=== PATIENT | female | born 1950 | race Caucasian/White ===

== ENCOUNTER → 2016-09-25 14:01 | Outpatient (CLI) | payer MEDICARE | END | disposition home or self-care (01) | LOC: D.CT 14:01 | DX: I65.23 Occlusion and stenosis of bilateral carotid arteries (principal) ==

== ENCOUNTER 2016-10-16 06:21 | Inpatient (IN) | payer MEDICARE ==
[2016-10-16] VITALS (41 sets, daily range): BP systolic 91–188; BP diastolic 41–75; BMI 37.0
[~2016-10-16] VITALS: Ht 161.3 cm; Wt 109.7 kg
--- NOTE | ~2016-10-16 | EC ---
PATIENT:KELLY DAS DATE OF SERVICE: 10/16/16 SEX: F MEDICAL RECORD: [id number] DATE OF : 50 LOCATION:[place] [address] AGE OF PATIENT: 66 ADMISSION DATE: 10/16/16 REFERRING PHYSICIAN: INTERPRETING PHYSICIAN: DONAVON FORMAN M.D. ECHOCARDIOGRAM REPORT ECHO CHARGES 4 ECHO COMPLETE CLINICAL DIAGNOSIS: HYPOTENSION/ POST CAROTID LEFT ENDARTECTOMY ECHOCARDIOGRAPHIC MEASUREMENTS (adult normal given) AC root (d.<3.7cm) 3.2 LV Septum d (<1.2 cm> 1.5 Valve Excursion 1.8 LV Septum (systole) 1.8 Left Atria (s.<4.0cm> 4.3 LVPW d(<1.2cm) 1.5 RV (d.<2.3cm) 3.3 LVPW (sytole) 1.6 LV diastole(<5.6CM) 5.5 MV E-F(>70mm/sec) LV systole 3.5 LVOT Diameter 1.7 MV exc.(>10mm) 1.0 Est.ejection fraction (50-75%) Pericardial Effusion N DOPPLER: LVIT A 100 E 51.0 LA RVSP 26 LVOT 160 AOP1/2T Asc. Ao 208 RVOT 172 RA PA 234 AV Gradient Peak 17.27 AV Mean 9.41 AV Area 1.6 MV Gradient Peak 5.26 MV Mean 1.88 MV Area COMMENTS: Industrial Education Teacher: Jaquan GUAN Coffee Urn Attendant:2 Dr. Forman TAPE# PACS DATE OF SERVICE: 10/16/2016 REFERRING PHYSICIAN: Sebas Burnett MD. INDICATION: Hypotension. DESCRIPTION: Left ventricle demonstrates left ventricular hypertrophy. No regional wall motion abnormalities are seen. Estimated ejection fraction is 60%. Mitral valve is structurally normal. There is no regurgitation or prolapse seen. Left atrium is mildly dilated. The aortic valve is trileaflet. ECHOCARDIOGRAM REPORT [id number] KELLY DAS There is no stenosis or regurgitation seen. Right ventricle appears mildly dilated. Tricuspid valve is normal. There is mild regurgitation seen. Right ventricular systolic pressure is measured at 26 mmHg. There is no pericardial effusion seen. IMPRESSION: 1. Left ventricular hypertrophy with preserved ejection of 60%. 2. Mild tricuspid regurgitation. TRANSINT:[id number] Voice Confirmation ID: [id number] DOCUMENT ID: [id number] DONAVON FORMAN M.D. CC: [id number] DICTATION DATE: 10/17/16941 CLERK CHECKER: 10/17/16 1440 ADM IN [place] [id number] [place] [address]
[2016-10-16 07:45] LABS: HEMATOCRIT 36.7 % (36.0-48.0); HEMOGLOBIN 12.2 g/dL (12-16); MCH 33.2 pg (26.0-34.0); MCHC 33.2 g/dL (31.0-37.0); MEAN PLATELET VOLUME 9.6 fL (7.4-10.4); RBC 3.67 10x6/uL (4.00-5.40); RDW 12.8 % (11.5-14.5); WBC 6.2 10x3/uL (4.8-10.8)
[2016-10-16 07:49] LABS: APTT 27.1 SECONDS (22.8-39.4); INR 0.96 (0.85-1.17); PROTIME 12.6 SECONDS (11.6-15.0)
[2016-10-16 07:59] LABS: ALBUMIN 3.8 g/dL (3.4-5.0); ANION GAP 15.4 mmol/L (8-16); BILIRUBIN - TOTAL 0.35 mg/dL (0.2-1.3); CALCIUM 9.9 mg/dL (8.5-10.1); CARBON DIOXIDE 25.3 mmol/L (21.0-32.0); CREATININE - SERUM 0.9 mg/dL (0.6-1.3); POTASSIUM - SERUM 4.7 mmol/L (3.5-5.1); PROTEIN - SERUM 7.4 g/dL (6.4-8.2)
[2016-10-16] MEDS ORDERED: LOZOL 2.5 MG T2.5 MG PO (08:11)
[2016-10-16] MEDS ORDERED: NEXIUM40 MG PO (08:12)
[2016-10-16] MEDS ORDERED: CO Q-10100 MG PO (08:12)
[2016-10-16] MEDS ORDERED: HYDROCODONE-APA1 TAB PO (08:13)
[2016-10-16] MEDS ORDERED: ZANTAC150 MG PO (08:13)
[2016-10-16] MEDS ORDERED: LEVOXYL125 MCG PO (08:14)
[2016-10-16] MEDS ORDERED: NEURONTIN 300300 MG PO (08:15)
[2016-10-16] MEDS ORDERED: FIORICET-COD 51 EACH PO (08:15)
[2016-10-16] MEDS ORDERED: DIOVAN160 MG PO (08:16)
[2016-10-16] MEDS ORDERED: LANTUS INSULIN10 ML SC (08:17)
[2016-10-16] MEDS ORDERED: NOVOLOG100 U/M1 SC (08:18)
[2016-10-16] MEDS ORDERED: EFFEXOR37.5 MG PO (08:19)
[2016-10-16] MEDS ORDERED: BYSTOLIC5 MG PO (08:20)
[2016-10-16] MEDS ORDERED: NORVASC5 MG PO (08:20)
[2016-10-16] MEDS ORDERED: ZANAFLEX2 M1 PO (08:21)
[2016-10-16] MEDS ORDERED: ZYLOPRIM100 MG PO (08:21)
[2016-10-16] MEDS ORDERED: PLAVIX75 MG PO (08:22)
[2016-10-16 08:58] LABS: APPEARANCE CLEAR (CLEAR); BILIRUBIN NEGATIVE (NEGATIVE); COLOR YELLOW (YELLOW); GLUCOSE 50 mg/dL (NEGATIVE); KETONE NEGATIVE (NEGATIVE); LEUKOCYTE ESTERASE NEGATIVE (NEGATIVE); NITRITE NEGATIVE (NEGATIVE); PROTEIN NEGATIVE (NEGATIVE); SPECIFIC GRAVITY 1.015 (1.005-1.020); UROBILINOGEN NORMAL (NORMAL)
--- NOTE | 2016-10-16 14:00 | NUR ---
PT ARRIVED TO CV 02 FROM OR AT THIS TIME. PT WEARING NRB @ 15L. PT IS AWAKE AND ALERT. PT HAS INCISION TO LEFT NECK, DRSG CDI. NECK IS SUPPLE. PT HAS SUGAR DRAIN TO LEFT NECK/CHEST WITH BLOODY OUTPUT. YU/TEDS/CRITICORE/SCDS IN PLACE. PT ATTACHED TO MONITOR, VSS. SEE IV FLOW SHEET FOR DETAILS REGARDING DRIPS. SEE SHIFT ASSESSMENT FOR ANY FURTHER DETAILS.
[2016-10-16 14:41] LABS: CKMB 0.8 U/L (0.0-3.6); CREATINE KINASE 59 UL (21-215)
[2016-10-16 14:43] LABS: TROPONIN-I 0.088 ng/mL (0.000-0.060)
--- NOTE | 2016-10-16 16:00 | NUR ---
PT RESTING IN BED. PT TOLERATING ICE CHIPS AND SIPS OF WATER WELL AT THIS TIME. NECK REMAINS CLEAR AND SUPPLE. NEURO INTACTS. CMS INTACT. VSS. WILL CONTINUE TO MONITOR.
--- NOTE | 2016-10-16 18:00 | NUR ---
PT AT BEDSIDE FOR VISITATION. VSS. WILL MONITOR.
--- NOTE | 2016-10-16 19:00 | NUR ---
Received patient resting in bed with eyes open and at bedside, Assessment completed per flowsheet. Patient AO x4, calm and cooperative. Eyes PERRLA @ 4mm with brisk response, sclera is white. L neck incision dressing CDI, no swelling or drainage noted. SUGAR drain mid upper chest, small amount of bloody drainage noted. S1/S2 noted Sinus Tach on telemetry with HR 100, rhythmic and regular. Breathing is slightly shallow on 5L via NC, Lung sounds diminished throughout. Abdomen is obese and soft, bowel sounds hypoactive x4. Criticore rodriguez secured in place, concentrated yellow urine noted in collection. Full ROM all extremities with weakness noted all, all pulses weakly palpable. R radial A-line noted, zeroed with good waveform. Wrist protector in place, extremities warm with good sensation. R subclavian CVL noted, patent with dressing intact. C/O pain in neck 11/18, will provide PRN medication when available. Repositioned for comfort, no further needs at this time, all VSS and will continue to monitor.
--- NOTE | 2016-10-16 19:06 | NUR ---
SPOKE WITH DR KOLB REGARDING BS. UPDATE GIVEN. NEW ORDERS RECD.
[2016-10-16 20:30] LABS: CREATINE KINASE 71 UL (21-215)
[2016-10-16 20:38] LABS: TROPONIN-I 0.324 ng/mL (0.000-0.060)
--- NOTE | 2016-10-16 23:00 | NUR ---
Reassessment completed per flowsheet, patient resting in bed with eyes closed. L neck dressing CDI, no drainage or swelling noted. SUGAR drain compressed with small bloody drainage noted, dressing CDI. S1/S2 noted NSR on telemetry with HR 91, rhythmic and regular. Breathing is slightly shallow and unlabored on 5L via NC, O2 sat 95%. C/O incision site pain intermittent with breakthrough, will provide PRN medication when available. No further needs at this time, all VSS and will continue to monitor.
[2016-10-17] VITALS (57 sets, daily range): BP systolic 87–147; BP diastolic 43–86; Ht 161.3 cm; Wt 109.7 kg
--- NOTE | 2016-10-17 02:00 | NUR ---
Patient C/O pain unrelieved by PRN medication, notified Dr Burnett and new orders received. Will continue to monitor.
--- NOTE | 2016-10-17 03:00 | NUR ---
Reassessment completed per flowsheet, patient resting in bed with eyes closed. L neck dressing CDI with no swelling or bleeding noted. SUGAR drain Mid upper chest dressing CDI with scant bloody drainage noted. S1/S2 noted NSR on telemetry with HR 85, rhythmic and regular. Breathing is shallow and unlabored on 5L via NC, O2 sat 94%. Patient c/o pain at rodriguez site, repositioned with patient stating some relief. No further needs at this time, all VSS and will continue to monitor.
[2016-10-17 03:21] LABS: CKMB 3.2 U/L (0.0-3.6)
[2016-10-17 03:22] LABS: CREATINE KINASE 219 UL (21-215); GLUCOSE 590 mg/dL (74-106); TROPONIN-I 0.338 ng/mL (0.000-0.060)
--- NOTE | 2016-10-17 06:00 | NUR ---
SUGAR drain pulled without difficulty, Dressing CDI with no drainage or bleeding noted.
--- NOTE | 2016-10-17 10:14 | NUR ---
0700- ASSESSMENT COMPLETE PER FLOW SHEET. RESTING IN BED QUIETLY. VSS. DENIES ANY NEEDS. 0835- DR. KOLB AT BEDSIDE, NEW ORDERS REC'D TO WEAN DOPAMINE AND EPI. 0950- C/O BACK PAIN. NOTIFIED HER THAT SHE CAN HAVE PAIN MEDICATION AT 1020.
--- NOTE | 2016-10-17 13:17 | NUR ---
* Is the patient Alert and Oriented? Yes 0 * How many steps to enter\exit or inside your home? 0 0 * PCP Dr. Cisco Daley ([place]) 0 * Pharmacy [facility] in [place] 0 * Preadmission Environment Home with Family 0 * ADLs Independent 0 * List name and contact numbers for known caregivers / representatives who currently or will assist patient after discharge: Spouse - Umesh [phone] 0 * Additional services required to return to the preadmission environment? Yes 0 * Can the patient safely return to the preadmission environment? Yes 0 * Has this patient been hospitalized within the prior 30 days at any hospital? No 0 10/17/2016 13:15 DCP: Discharge Planning Patient Name: KELLY DAS Admission Status: Elective Accout number: [id number] Admission Date: 10-16-2016 : 1950 Admission Diagnosis: Attending: SERA Current LOS: 1 Anticipated DC Date: 10-18-2016 Planned Disposition: Home Primary Insurance: MEDICARE A & B Discharge Planning Comments: CM met with patient to assess dc plans/needs. Patient states she lives a home with her . She reports she is independent with all ADL's & IADL's. She denies having any home health services in the past. At dc, she plans to return home. She states she has good family support & her daughter will be available to assist with any needs. No needs identified or verbalized at this time. CM will follow. Cartography/Mapping Technician: Claudia Cunha
--- NOTE | 2016-10-17 15:07 | NUR ---
* Is the patient Alert and Oriented? Yes 0 * How many steps to enter\exit or inside your home? Ramp 0 * PCP Dr. Uche Cid 0 * Pharmacy [facility] 0 * Preadmission Environment Alf Facility 0 * Facility Name [facility] 0 * ADLs Partial Dependent 0 * Partial ADLs (Assistance needed) Ambulation Bathing Dressing Medication Management Toileting Transfers 0 * Equipment Bedside Commode Cane Elevated Tol[place] Seat Oxygen Rolling Walker Shower Chair 0 * List name and contact numbers for known caregivers / representatives who currently or will assist patient after discharge: Spouse - Belinda [phone] 0 * Additional services required to return to the preadmission environment? Yes 0 * Can the patient safely return to the preadmission environment? Yes 0 * Has this patient been hospitalized within the prior 30 days at any hospital? Yes 10/17/2016 15:08 DCP: Discharge Planning Patient Name: TESS WELLS Admission Status: ER Accout number: [id number] Admission Date: 10-14-2016 : 04-09-1938 Admission Diagnosis:PNEUMONIA, UNSPECIFIED ORGANISM Attending: PERLA Current LOS: 3 Planned Disposition: Alf Facility Primary Insurance: [facility] Discharge Planning Comments: CM met with spouse at bedside. She states patient was living at home with her until about a month ago - she states he has been at [facility] twice in the last 30 days -at discharge both times, he went to [facility] for skilled rehab. She reports he required assistance for all ADL's. She states patient will return to SNF at discharge for further rehab. Answered questions & concerns. CM will follow. Firmware Engineer: Claudia Cunha
--- NOTE | 2016-10-17 15:59 | NUR ---
1130- LUNCH TRAY GIVEN, FEEDING SELF. GTTS WEANED AND TURNED OFF PER ORDERS. SYSTOLIC BP IN THE 110S. 1320- RESTING IN BED WITH EYES CLOSED. PAIN MEDICATION GIVEN PER MAR AND PT REQUEST. 1510- SHEY WITH P.T. AT BEDSIDE, ASSISTED PT TO MOVE FROM BED TO CHAIR. TOLERATED WELL. 1530- RIGHT RADIAL ART LINE AND YU D/C'D PER ORDERS. 1555- DR. KOLB AT BEDSIDE, NO NEW ORDERS REC'D.
--- NOTE | 2016-10-17 19:20 | NUR ---
REC'D TO CARE, BROADCAST MAINTENANCE ENGINEER PER FLOWSHEET. PT UP TO BSC, VOIDED 300ML CLEAR, DARK YELLOW URINE. NICOLA-CARE PER PT. ADULT BRIEF ON PER PT REQUEST FOR STRESS INCONT. PRN NORCO JUST GIVEN BY PREV NURSE. L NECK SITE C/D/I - PT REPORTS PAIN WITH MOVEMENT OF NECK AND COUGHING. LUNGS CTA. CM - NSR. VSS. FRESH WATER AT BS. C/L IN REACH.
--- NOTE | 2016-10-17 20:00 | NUR ---
PT RESTING WITH EYES CLOSED, VSS. NO SIGN OF DISTRESS.
--- NOTE | 2016-10-17 21:21 | NUR ---
PO MEDS GIVEN PER MD ORDER. PT GIVEN SANDWICH TRAY PER REQUEST.
--- NOTE | 2016-10-17 23:11 | NUR ---
PT UP TO BSC, VOIDED 400ML CLEAR, YELLOW URINE. BACK TO BED, REASSESSMENT PER FLOWSHEET. ENCOURAGED DB&C. ALARMS ON . C/L IN REACH.
[2016-10-18] VITALS (25 sets, daily range): BP systolic 98–140; BP diastolic 42–86
--- NOTE | 2016-10-18 01:15 | NUR ---
PT AWAKENS EASILY, NEURO WNL. VSS.
--- NOTE | 2016-10-18 03:32 | NUR ---
REASSESSMENT PER FLOWSHEET, NO ACUTE CHANGES. VSS. PT DENIES NEEDS. C/L IN REACH.
--- NOTE | 2016-10-18 04:52 | NUR ---
RESTING WITH EYES CLOSED, VSS. NO SIGN OF DISTRESS.
--- NOTE | 2016-10-18 05:22 | NUR ---
PT UP TO BSC, VOIDED 550ML. NICOLA-CARE PER PT. BACK TO BED, GIVEN PRN NORCO FOR C/O INCISIONAL NECK PAIN. VSS. C/L IN REACH.
--- NOTE | 2016-10-18 06:32 | NUR ---
UP IN CHAIR. GIVEN COFFEE PER REQUEST. C/L IN REACH.
--- NOTE | 2016-10-18 09:18 | NUR ---
Nutrition follow-up: Diet: ADA consistent CHO with no juice due to elevated glucose. PO intake ~60% of meals labs reviewed FSBS under better control RDN following.
--- NOTE | 2016-10-18 09:46 | NUR ---
0715-RECIEVED PER FLOW SHEET SITTING UP IN [id number]-[id number] OF THOUGHTS IS SLOW-MASSEY EQUAL AND STRONG-FACIAL SYMETRICAL- 0845-DR KOLB AT [facility]-SAME VOCALIZED REGARDING THOUGHT AND SLOWNESS OF VOCALIZATION-AWARE NIBP 104/52 0900-AMBULATED TO BATHROOM-AMBULATED IN UNIT WITH PHYSICAL THERAPY 0930-Roddy VALLE RN/[facility] INFORMED MARY JANE VALERIO-NIBP 104 SYS
--- NOTE | 2016-10-18 14:30 | NUR ---
RECEIVED PT FOR CARE FROM MITZI CHRISTOPHER RN. PT RESTING IN ROOM. CALL LIGHT WITHIN REACH. VSS.
--- NOTE | 2016-10-18 17:38 | NUR ---
PT ASSISTED UP TO CHAIR. CALL LIGHT WITHIN REACH.
--- NOTE | 2016-10-18 19:44 | NUR ---
PT C/O INCISIONAL PAIN TO LT NECK, PRN PO NORCO 10/325 MG ADMINISTERED PER MD ORDER AND PT REQUEST. WILL MONITOR FOR DESIRED EFFECT.
--- NOTE | 2016-10-18 21:34 | NUR ---
PT VISITING WITH FAMILY IN NO APPARENT DISTRESS, DENIES ANY NEEDS, VSS.
--- NOTE | 2016-10-18 23:15 | NUR ---
REASSESSMENT PER FLOWSHEET, NO ACUTE CHANGES NOTED AT THIS TIME. PT DENIES ANY NEEDS, LT NECK/ CHEST DRESSINGS REMAIN CDI, BED LOW, CALL LIGHT IN REACH, CONT TO MONITOR.
[2016-10-19] VITALS (15 sets, daily range): BP systolic 118–153; BP diastolic 42–83
--- NOTE | 2016-10-19 01:15 | NUR ---
PT RESTING IN BED WITH EYES CLOSED, AROUSES EASILY TO VOICE, DENIES ANY NEEDS AT THIS TIME, VSS.
--- NOTE | 2016-10-19 03:08 | NUR ---
PT C/O INCISIONAL PAIN AND A HEADACHE. PRN PO NORCO 10/325 MG ADMINISTERED PER PT REQUEST WITH FRESH ICE WATER, WILL MONITOR.[
--- NOTE | 2016-10-19 05:02 | NUR ---
PILLOW PLACED UNDER LT HIP PER PT REQUEST, COFFEE PROVIDED, CALL LIGHT IN REACH, DENIES ANY OTHER NEEDS AT THIS TIME.
--- NOTE | 2016-10-19 08:28 | NUR ---
WALKING WITH PHYSICAL THERAPY AT THIS TIME. DENIES ANY NEEDS. NO ACUTE DISTRESS NOTED. WILL CONTINUE PLAN OF CARE.
--- NOTE | 2016-10-19 12:10 | NUR ---
UP IN BED EATING LUNCH AT THIS TIME AND SPEAKING WITH DR KOLB. NO ACUTE DISTRESS NOTED. WILL CONTINUE PLAN OF CARE.
--- NOTE | 2016-10-19 13:26 | NUR ---
NOTED ORDER FOR PT TO BE DISCHARGED. WILL DISCHARGE PT SHORTLY PER ORDERS. NO ACUTE DISTRESS NOTED. WILL CONTINUE PLAN OF CARE.
--- NOTE | 2016-10-19 13:32 | OP ---
[facility] MEDICAL RECORD: [id number] :50 LOCATION:D.I D.CV02 ADMISSION DATE:10/16/16 SURGEON: SEBAS KOLB MD DATE OF OPERATION: 10/16/2016 SURGEON: Sebas Kolb MD. ANESTHESIA: General endotracheal, Dr. Flores and Dr. Gaviria. OPERATION PERFORMED: Left carotid endarterectomy with patch angioplasty. PREOPERATIVE DIAGNOSIS: Severe bilateral carotid stenosis. POSTOPERATIVE DIAGNOSIS: Severe bilateral carotid stenosis. INDICATION FOR OPERATION: Symptomatic left carotid stenosis. FINDINGS AT OPERATION: Severe left internal carotid artery stenosis greater than 80% area of stenosis with ulceration, exophytic calcium and old clot. There were no EEG changes with clamping or unclamping of the carotid artery. Post-protamine, the patient had hypotension, bradycardia and elevated pulmonary artery pressures and elevated peak inspiratory pressure. This required resuscitative measures medically without compression. She was transferred to the CV ICU on inotropic vasoactive drugs. ESTIMATED BLOOD LOSS: Less than 100 cc. DESCRIPTION OF PROCEDURE: After informed consent, adequate preoperative medication and evaluation, the patient was brought to the operating room, placed on the table in the supine position. After induction of general endotracheal anesthesia and application of appropriate monitoring devices, left neck and chest were prepped and draped in a sterile field, utilizing Betadine scrub, alcohol, and Betadine solution. A Betadine-impregnated drape was also used. An oblique incision was made in the skin crease. Dissection carried down the fascia. Hemostasis was maintained with electrocautery. Facial vein was identified and divided. Utilizing sharp dissection, the common carotid, internal and external carotid arteries were dissected free from surrounding structures, protecting the neurological structures. The patient was given a calculated dose of heparin. After 3 minutes, clamps were applied. After 2 minutes, no EEG changes. The arteriotomy was made and extended with Corbett scissors. Artery underwent endarterectomy sharply. Artery underwent extensive debridement and irrigation. Utilizing a CorMatrix vascular patch and running 7-0 Prolene suture, the arteriotomy was closed with patch angioplasty technique. All maneuvers to remove trapped air were performed. The clamps were removed sequentially. There were no EEG changes. The patient was then given a calculated dose of protamine to reverse the heparin. With this, she developed bradycardia, hypotension, requiring vigorous medical resuscitative efforts to increase and maintain the blood pressure in the normal range. This was accomplished with vasoactive drugs and bicarbonate after being stable. Hemostasis was assured. A #7 Williams-Harding drain was left in the depth of wound and brought through the base of the neck. Neck was again irrigated. Instrument count and sponge count were correct times 2. Neck was closed in layers utilizing 3-0 Vicryl on the platysma, 5-0 subcuticular Monocryl on the skin. Sterile dressings were applied. The patient tolerated the procedure and was OPERATIVE REPORT [id number] KELLY DAS transferred to cardiovascular recovery in critical, but stable condition. TRANSINT:[id number] Voice Confirmation ID: [id number] DOCUMENT ID: [id number] SEBAS KOLB MD at 1332 CC: [id number] DICTATION DATE: 10/16/16 1342 CARPORT ERECTOR: 10/16/16 2310 ADM IN [facility] [address] [place] [id number]
--- NOTE | 2016-10-19 13:32 | HP ---
PATIENT: KELLY DAS MEDICAL RECORD: [id number] ACCOUNT: [id number] [facility] ADMISSION DATE: 10/16/16 HISTORY AND PHYSICAL EXAMINATION KELLY Francisco (66yo, F) ID# [id number]. Date/Time10/03/2016 01:91AYVMA49/16/1951Service Dept.NP_[facility] ClinicProviderEDTRACEE KOLB MDInsuranceMed Primary: [place] Insurance # : [id number] Referring Provider Name : BRAIN RESENDIZ Employer Name : RETIRED Med Secondary: [place] Insurance # : [id number] Referring Provider Name : BRAIN RESENDIZ Employer Name : RETIRED Prescription: CMX - Member is eligible. Prescription: [place] [employer] - Member is eligible. Chief Complaint Carotid stenosis CTA carotid Patient's Care Team Referring Provider (): BRAIN RESENDIZ: [address] [place] [id number], , Primary Care Provider: DAE GUAJARDO MD: [address] [facility] [place] [address], , Patient's Pharmacies [facility] (ERX): [address] [place] [address], , Vitals BP:140/80 sitting R arm 10/03/2016 01:35 pm 144/82 sitting L arm 10/03/2016 01:35 pmHR:80R/R 10/03/2016 01:35 pmHt:5 ft 3 in 10/03/2016 01:33 pmWt:230 lbs 10/03/2016 01:33 pmBMI:40.7 10/03/2016 01:33 pmAllergies Reviewed Allergies Antivenom for snakebiteMedications Reviewed Medications allopurinol 100 mg mnflxo43/30/17 filledCaremarkamLODIPine 5 mg gaajfv21/13/17 filledCaremarkamoxicillin 875 mg-potassium clavulanate 125 mg koarau14/03/16 filledCaremarkBD Insulin Pen Needle UF Original 29 gauge x 1/2"08/09/16 cnjxrvVhfcnxywlntdgyldxw-vuhuuincrnkke-ninrdvtt 50 mg-300 mg-40 mg yxkontr41/15/17 filledCaremarkBystolic 2.5 mg tablet Take 1 tablet(s) every day by oral route.09/23/16 enteredCindy BrownBystolic 5 mg /13/17 filledCaremarkclopidogrel 75 mg tablet Take 1 tablet(s) every day by oral route.10/03/16 Meena Kolb MDesomeprazole magnesium 40 mg capsule,delayed /09/17 filledCaremarkgabapentin 300 mg pusblzi88/26/17 filledCaremarkHYDROcodone 10 mg-acetaminophen 325 mg udgizr82/13/17 filledCaremarkindapamide 2.5 mg sarlaw07/13/17 filledCaremarkLantus Solostar 100 unit/mL (3 mL) subcutaneous insulin pen08/12/16 filledCaremarklevothyroxine 125 mcg bdafhy79/09/17 filledCaremarklisinopril 10 mg uzdchw74/29/16 filledCaremarkmetFORMIN 500 mg zdcaoa19/09/16 filledCaremarkNovoLOG Flexpen 100 unit/mL ymezqcnxmbha46/31/17 filledCaremarkNovoLOG Mix 70-30 100 unit/mL subcutaneous /03/16 filledCaremarkNovolog Mix 70-30 FlexPen 100 unit/mL subcutaneous pen05/22/16 filledCaremarkpravastatin 20 mg ebolxp32/04/17 filledCaremarkpredniSONE 20 mg eonjsi33/21/16 filledCaremarkraNITIdine 150 mg jnjpeci54/25/17 HISTORY AND PHYSICAL [id number] KELLY DAS filledCaremarkraNITIdine 150 mg wjobzg49/07/17 filledCaremarksucralfate 1 gram /21/16 filledCaremarktiZANidine 2 mg kdyazn96/03/17 filledCaremarkvalsartan 160 mg aojdni74/13/17 filledCaremarkvalsartan 160 mg-hydrochlorothiazide 12.5 mg hdvndo61/22/17 filledCaremarkvalsartan 320 mg-hydrochlorothiazide 25 mg /31/17 filledCaremarkvenlafaxine ER 37.5 mg capsule,extended release 24 hr09/17/16 filledCaremarkProblems Reviewed Problems Carotid artery stenosis - Onset: 09/23/2016 Family History Discussed Family History Father- TuberculosisMother- Amyotrophic lateral sclerosisSocial History Discussed Social History Cardiology and General Smoking Status: Former smoker High Cholesterol: Y High blood pressure: Y Diabetes: Y Surgical History Reviewed Surgical History Other - Abdominalplasty Other - hysterectomy 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 HPI bilateral carotid stenosis Visual disturbances OS ROS Patient reports exercise intolerance but reports no fever, no night sweats, no significant weight gain, and no significant weight loss. She reports vision change (bilateral) but reports no dry eyes and no irritation. She reports shortness of breath when walking and shortness of breath when lying down but reports no chest pain, no arm pain on exertion, no palpitations, and no known heart murmur. She reports shortness of breath but reports no cough, no wheezing, and no coughing up blood. She reports no diff iculty hearing and no ear pain. She reports no frequent nosebleeds and no nose/sinus problems. She reports no sore throat, no bleeding gums, no snoring, no dry mouth, no mouth ulcers, no oral abnormalities, and no teeth problems. She reports no jugular ve i n distension and no swollen glands. She reports no abdominal pain, no vomiting, normal appetite, no diarrhea, not vomiting HISTORY AND PHYSICAL [id number] KELLY DAS blood, no nausea, and no constipation. She reports no incontinence, no difficulty urinating, no hematuria, and no increased frequenc y . She reports no muscle aches, no muscle weakness, no arthralgias/joint pain, no back pain, and no swelling in the extremities. She reports no abnormal mole, no jaundice, and no rashes. She reports no loss of consciousness, no weakness, no numbness, no se i zures, no dizziness, and no headaches. She reports no depression, no sleep disturbances, feeling safe in relationship, and no alcohol abuse. She reports no fatigue. She reports no swollen glands and no bruising. She reports no runny nose, no sinus pressur e, no itching, no hives, and no frequent sneezing. ROS as noted in the HPI Physical Exam Patient is a 66-year-old female. Constitutional: General Appearance healthy-appearing and obese. Level of Distress NAD. Ambulation ambulating normally. Cardiovascular: Apical Impulse not displaced or no thrill. Heart Auscultation normal s1 and s2; no murmurs, rubs, or gallops; and RRR. Arterial Pulses no abdominal aorta bruits, femoral bruits, or popliteal bruits and 2+ bilateral, carotid 2+ bilateral, femoral 2+ bila teral, popliteal 2+ bilateral, and dorsalis pedis 2+ bilateral. Edema no edema or varicosities. Lungs: Repiratory Effort no dyspnea. Percussion no hyperresonance or dullness or flatness. Auscultation no wheezing, rhonchi, or rales / crackles and breathing sounds normal, good air movement, and CTA except as noted. Abdomen: Bowl Sounds normal. Inspection and Palpation no tenderness, guarding, masses, or rebound tenderness and soft and non-distended. Liver non-tender and no hepatomegaly. Spleen non-tender and no splenomegaly. Hernia none palpable. Musculoskeletal System: Gait And Stance normal gait and stance. Digits and Nails normal nails and no cyanosis. Neurologic: Cranial Nerves grossly intact. Reflexes DTRs 2+ bilaterally throughout. Sensation grossly intact. Lymph Nodes: Lymph Nodes no cervical LAD, supraclavicular LAD, axillary LAD, or inguinal LAD. Eyes: Lids and Conjunctivae no discharge or pallor and non-injected. Pupils PERRLA. Cornea grossly intact. EOM EOMI. Lens clear. Sclera non-icteric. Neck: Neck no masses or enlarged lymph nodes and supple, trachea midline, and carotid bruits (left). Thyroid no enlargement or nodules and non-tender. Skin: Inspection and Palpation no rash, lesions, ulcers, jaundice, or abnormal nevi. Assessment / Plan bilateral carotid stenosis left greater than the right 1. Carotid artery stenosis I65.23: Occlusion and stenosis of bilateral carotid arteries CAROTID STENOSIS: CARE INSTRUCTIONS Discussion Notes moderately severe bilateral carotid stenosis left greater than right HISTORY AND PHYSICAL [id number] KELLY DAS She has visual disturbances in left eye and Occasional weakness in her right arm and hand with numbness. I have discussed her disease process with her in detail as well as the alternative methods of treatm ent. We discussed left carotid endarterectomy including the expected benefits and risk which include bleeding, infection, stroke, , and they imponderables. She understands all of the above and wishes to proceed with left carotid endarterectomy We will call to schedule GARRISON KOLB MD at 1332 CC: [id number] DICTATION DATE: 10/03/16 1300 METALLURGICAL ENGINEERING TECHNICIAN: DESIRAE 10/11/16 1410 ADM IN [address] [place] [address]
--- NOTE | 2016-10-19 14:26 | NUR ---
PT DISCHARGED HOME AT THIS TIME VIA PERSONAL VEHICLE WITH . NO ACUTE DISTRESS NOTED. CVL DC PER ORDERS, 3 SUITURES DC FROM SITE AND PRESSURE APPLIED TO SITE FOR 5 MIN AFTER CVL REMOVED, PRESSURE DRESSING APPLIED, NO BLEEDING OR DRAINAGE NOTED. NOTED THERE IS NO CHANGE IN PTS HOME MED LIST. PT IS AWARE THAT DR STEVENS OFFICE WILL CALL PT TO MAKE AN APPOINTMENT NEXT WEEK. PT IS AWARE TO NOT DRIVE. ALSO PT STATED UNDERSTANDING TO NOT USE SOAP, WATER, OR WASHCLOTHS TO INCISION SITE. PT DENIES ANY QUESTIONS OR CONCERNS. NO FURTHER ACTIONS.
== END 2016-10-19 14:39 | disposition home or self-care (01) | DRG 39 ==
LOC: D.CVICU 06:21 → D.SDCHOLD 06:21 → D.CVICU 09:29
PROVIDERS: ADMIT Internal Medicine Cardiovascular Disease
PROC: 03UL0KZ Supplement Left Internal Carotid Artery with Nonautologous Tissue Substitute, Open Approach (ICD-10-PCS; 2016-10-16)
PROC: 03CL0ZZ Extirpation of Matter from Left Internal Carotid Artery, Open Approach (ICD-10-PCS; principal; 2016-10-16 09:00)
DX: I65.23 Occlusion and stenosis of bilateral carotid arteries (principal); I95.9 Hypotension, unspecified; R00.1 Bradycardia, unspecified; E11.9 Type 2 diabetes mellitus without complications; I73.9 Peripheral vascular disease, unspecified; E03.9 Hypothyroidism, unspecified; G89.4 Chronic pain syndrome; Z87.891 Personal history of nicotine dependence

== ENCOUNTER → 2017-02-03 08:56 | Outpatient (CLI) | payer MEDICARE ==
[2016-10-17 10:17] VITALS: BMI 42.4
[~2017-02-03 08:56] MED LIST: BYSTOLIC5 MG PO; CO Q-10100 MG PO; DIOVAN160 MG PO; EFFEXOR37.5 MG PO; FIORICET-COD 51 EACH PO; HYDROCODONE-APA1 TAB PO; LANTUS INSULIN10 ML SC; LEVOXYL125 MCG PO; LOZOL 2.5 MG T2.5 MG PO; NEURONTIN 300300 MG PO; NEXIUM40 MG PO; NORVASC5 MG PO; NOVOLOG100 U/M1 SC; PLAVIX75 MG PO; ZANAFLEX2 M1 PO; ZANTAC150 MG PO; ZYLOPRIM100 MG PO
== END | disposition home or self-care (01) ==
LOC: D.CT 08:56
DX: I65.23 Occlusion and stenosis of bilateral carotid arteries (principal)

== ENCOUNTER 2017-02-19 09:00 | Outpatient (CLI) | payer MEDICARE ==
--- NOTE | ~2017-02-19 | HEMODYNAMI ---
PATIENT:KELLY DAS MEDICAL RECORD: [id number] : 50 [facility] [id number] ADMISSION DATE: 02/19/17 Generatedon:02/19/201714:09 Patient name: KELLY DAS Patient #: [id number] SSN: : 1950 Date of study: 02/19/2017 Page: Of Hemodynamic Procedure Report Patient Data Patient Demographics Procedure consent was obtained First Name: KELLY Gender: Female Last Name: THIAGO : 1950 Middle Initial: JENNIFER Age: 66 year(s) Patient #: [id number] Race: Unknown Additional ID: [id number] Contact details [address]: [address] [place] [address] [place] State: [place] City: [place] Zip code: [address] Admission Admission Data Admission Date: 02/19/2017 Admission Time: 9:49 Room #: [facility] Procedure Procedure Types Cath Procedure Peripheral Cath Diagnostic Procedure Miscellaneous Procedure Description Procedure Date Procedure Date: 02/19/2017 Procedure Start Time: 13:29 Procedure Staff Name Function Jamir Álvarez MD Performing Physician Sallie Overton RT Scrub Mallika Randhawa RN Nurse Tc Brush RT Monitor Procedure Data Cath Procedure Fluoroscopy Diagnostic fluoroscopy Total fluoroscopy Time: 2.4 time: 2.4 min min Diagnostic fluoroscopy Total fluoroscopy dose: 231 dose: 231 mGy mGy Contrast Material Contrast Material Type Amount (ml) Isovue 300 26 Entry Location Entry Primary Successful Side Size Upsize Upsize Entry Closure Succes sful Closure Location (Fr) 1 (Fr) 2 (Fr) Remarks Device Remarks Femoral Right 5 Fr Exoseal artery Diagnostic catheters Device Type Used For End Catheter Placement Cordis Aqua 5Fr Limon Coronary 125cm catheter Angiography Procedure Medications Medication Administration Route Dosage Versed I.V. 1 mg Fentanyl I.V. 50 mcg Hemodynamics Rest Heart Rate: 61 (bpm) Snapshots Pre Cath Intra NCS Post Cath Vital Signs Time Heart Resp SPO2 etCO2 NIBP (mmHg) Rhythm Pain Sedation Rate (ipm) (%) (mmHg) Status Level (bpm) 13:08:31 62 32 100 37.7 169/78(129) NSR 0 (11) 10(A) , No pain 13:13:02 99 28 100 36.9 175/82(152) NSR 0 (11) 10(A) , No pain 13:17:32 60 28 99 40.7 169/75(128) NSR 0 (11) 10(A) , No pain 13:22:00 66 24 100 40.7 179/84(144) NSR 0 (11) 10(A) , No pain 13:26:31 62 20 99 20.3 169/80(134) NSR 0 (11) 10(A) , No pain 13:30:59 72 23 100 36.2 183/88(136) NSR 0 (11) 10(A) , No pain 13:35:37 66 11 99 15 173/81(148) NSR 0 (11) 10(A) , No pain 13:40:10 63 28 100 43.7 178/83(135) NSR 0 (11) 10(A) , No pain 13:44:46 64 21 99 45.2 194/78(129) NSR 0 (11) 10(A) , No pain 13:49:17 61 25 98 35.4 182/87(154) NSR 0 (11) 10(A) , No pain 13:53:49 61 19 98 40.6 177/77(136) NSR 0 (11) 10(A) , No pain 13:58:20 59 17 97 170/84(160) NSR 0 (11) 10(A) , No pain 14:03:19 57 27 97 Measuring NSR 0 (11) 10(A) , No pain 14:04:08 57 15 86 174/78(138) NSR 0 (11) 10(A) , No pain 14:08:38 57 20 97 164/83(136) NSR 0 (11) 10(A) , No pain Medications Time Medication Route Dose Verified Delivered Reason Notes Effectivene ss by by 13:34:33 Versed I.V. 1 mg Jamir Tena for Preeti Randhawa RN sedation 13:34:47 Fentanyl I.V. 50 Jamir Tena [place] [facility] Preeti Randhawa RN sedation Procedure Log Time Note 12:53:31 Tc Ramoslulu RT (R) (CV) sent for patient. Start room use. 12:53:43 Time tracking: Regular hours 12:53:48 Plan of Care:Hemodynamics will remain stable., Cardiac rhythm will remain stable., Comfort level will be maintained., Respiratory function will remain adequate., Patient/ family verbilizes understanding of procedure., Procedure tolerated without complication., Recovers from procedure without complications.. 12:53:54 Patient received from Outpatients to IR Alert and oriented. Tansferred to table in Supine position. 12:53:55 Correct patient and procedure confirmed by team. 12:53:56 Signed procedure consent form obtained from patient. 12:53:57 ECG and BP/O2 sat monitors applied to patient. 12:53:59 Full Disclosure recording started 12:53:59 - 12:54:02 H&P Date Dictated: 02/19/2017 H&P Addendum completed by physician on da y of procedure. (MUST COMPLETE FOR ALL OUTPATIENTS). 12:54:03 Pre-procedure instructions explained to patient. 12:54:03 Pre-op teaching completed and patient verbalized understanding. 12:54:06 Family in waiting room. 12:54:07 Patient NPO since Midnight. 12:54:09 Is the patient allergic to Iodine/contrast media? No. 12:54:58 Is patient on blood thinner?Yes 12:55:02 ACC The patient was administered the following blood thiners within the last 24 hours: ACCPlavix 12:55:06 Patient diabetic? No. 12:55:08 - 1255:09 ----Pre-sedation anethsthesia assessment.---- 12:55:17 Previous problem with sedation/anesthesia? No ? 12:55:19 Snore? Yes 12:55:21 Sleep apnea? No 12:55:22 Deviated septum? No 12:55:23 Opens mouth fully? Yes 12:55:26 Sticks out tongue? Yes 12:55:29 Airway obstruction? No ? 12:55:39 Dentures? Yes upper in\ 12:55:44 Use device set IR Diagnostic 12:55:45 Bag Decanter opened to sterile field. 12:55:46 Acist Manifold opened to sterile field. 12:55:47 Acist Hand Control opened to sterile field. 12:55:47 Sterile Angiographic Pack opened to sterile field. 13:05:19 Acist Syringe opened to sterile field. 13:05:56 Pre procedure: right dorsailis pedis pulse Doppler 13:06:00 Pre procedure: left dorsailis pedis pulse Doppler 13:06:03 Pre procedure: right posterior tibial pulse Doppler 13:06:07 Pre procedure: left posterior tibial pulse Doppler 13:06:20 Patient pain scale 0/10 no pain. 13:06:30 IV patent on arrival in left forearm with 0.9% NaCl at [facility]. 13:06:41 Right groin area was prepped with chlora-prep and draped in sterile fashion 13:06:42 Alarms reviewed by R. N. 13:06:43 Alarms reviewed by R. N. 13:06:44 Sharps counted by scrub and verified by R.N. 13:07:11 Vital chart was started 13:07:12 Baseline sample Acquired. 13:07:22 Zero performed for pressure channel P1 13:25:49 Physician arrived 13:25:49 --------ALL STOP TIME OUT------ 13:25:50 Final Timeout: patient, procedure, and site verified with staff and physician. All members of the team are in agreement. 13:25:53 Right groin site verified by team. 13:26:09 Physical assessment completed. ASA score P 3 - A patient with severe systemic disease as per Jamir Álvarez MD. 13:26:13 Sedation plan: IV Moderate Sedation Versed, Fentanyl 13:29:25 Procedure started. 13:29:29 Local anesthetic to right femoral artery with Lidocaine 1% by Jamir Álvarez MD.INITIAL ACCESS ONLY 13:30:19 A Cordis Aqua 5Fr Limon 125cm catheter was advanced over the wire and used for Coronary Angiography. 13:30:22 Terumo 5Fr Sanborn Sheath opened to sterile field. 13:30:23 TUBING, CONTRAST INJCTN HI PRES opened to sterile field. 13:30:24 Micropuncture VSI 4FR kit opened to sterile field. 13:30:25 Cook BENTSON 145cm guide wire opened to sterile field. 13:30:35 A 5 Fr sheath was inserted into the Right Femoral artery 13:34:33 Versed 1 mg I.V. was administered by Mallika Randhawa RN; for sedation; 13:34:47 Fentanyl 50 mcg I.V. was administered by Mallika Randhawa RN; for sedation ; 13:53:49 Sheath removed intact; hemostasis achieved with Exoseal to the Right Femoral artery. 13:55:08 Cordis 5Fr Exoseal opened to sterile field. 13:55:13 Procedure ended.(Physican Out) 13:55:46 Fluoroscopy time 02.40 minutes. 13:55:50 Fluoroscopy dose: 231 mGy 13:55:50 Flurop Dose total: 231 13:57:33 Contrast amount:Isovue 300 26ml. 13:57:35 Sharps counted by scrub and verified by R.N. 13:57:36 Insertion/operative site no bleeding no hematoma. 13:58:02 Post-op/insertion site Right Femoral artery dressed using a 4 x 4 and Tegaderm. 13:58:04 Post Procedure Pulses reassessed and unchanged 13:58:10 Post-procedure physical assessment completed. ASA score P 3 - A patient with severe systemic disease as per Jamir Álvarez MD. 13:58:12 Post procedure instruction explained to patient.Patient verbalizes understanding. 13:58:13 Procedure and supply charges have been captured, reviewed, submitted an d are correct. 14:08:38 Report given to Outpatients. 14:08:41 Patient transfered to Outpatients with Bed. 14:09:15 Vital chart was stopped Device Usage Item Name Manufacture Quantity Catalog Hospital Part Current [facility] l Lot# / Number Charge Number Stock Stock Serial# Code Bag Decanter Microtek 1 [id number] 22633 525496 5 Medical Inc. Acist Acist 1 47524 330102 859611 086973 5 Manifold [employer] Inc Acist Hand Acist 1 96384 223500 691671 380896 5 Control [employer] Inc Sterile Cardinal 1 [id number] 524246 813240 5 Angiographic Health Pack Acist Syringe Acist 1 70296 754593 387639 085821 20 Medical Systems Inc Cordis Aqua Cardinal 1 [id number] 924338 575269 828971 5 5Fr Limon Health 125cm catheter Terumo 5Fr Terumo 1 [id number] 997615 766452 566508 40 Sanborn Sheath TUBING, Merit 1 [id number] 899657 326996 016472 5 [id number] CONTRAST Medical INJCTN HI PRES Micropuncture VSI VASCULAR 1 [id number] 016938 846264 5 VSI 4FR kit SOLUTIONS [facility] 1 [id number] 889139 030621 5 [id number] 145cm guide wire Cordis 5Fr Cardinal 1 EX500 188072 912765 100337 10 [id number] [facility] Signature Audit [place] Stage Time Signature Unsigned Intra-Procedure 02/19/2017 Tc 2:09:13 PM Trudi RT (R) (CV) Signatures Monitor : Tc Signature : Trudi RT Date : Time : [id number] [place] [address]
[2017-02-19 10:51] LABS: BASOPHILS 0.3 % (0-2); EOSINOPHILS 1.9 % (0-7); HEMATOCRIT 37.2 % (36.0-48.0); HEMOGLOBIN 12.3 g/dL (12-16); IMMATURE GRANULOCYTES 0.3 % (0-5); LYMPHOCYTES 33.8 % (15-50); MCH 32.7 pg (26.0-34.0); MCHC 33.1 g/dL (31.0-37.0); MCV 98.9 fL (80.0-100.0); MEAN PLATELET VOLUME 9.5 fL (7.4-10.4); MONOCYTES 8.4 % (2-11); NEUTROPHILS 55.3 % (40-80); PLATELET COUNT 187 10x3/uL (130-400); RBC 3.76 10x6/uL (4.00-5.40); RDW 12.8 % (11.5-14.5); WBC 5.8 10x3/uL (4.8-10.8)
[2017-02-19 10:55] LABS: APTT 26.2 SECONDS (22.8-39.4); INR 0.96 (0.85-1.17); PROTIME 12.6 SECONDS (11.6-15.0)
[2017-02-19 11:09] LABS: ANION GAP 15.7 mmol/L (8-16); CALCIUM 9.6 mg/dL (8.5-10.1); CARBON DIOXIDE 27.2 mmol/L (21.0-32.0); POTASSIUM - SERUM 4.9 mmol/L (3.5-5.1)
[2017-02-19] MEDS ORDERED: DIOVAN160 MG PO (11:18)
[2017-02-19] MEDS ORDERED: CATAPRES0.1 MG PO (11:26)
[2017-02-19 11:27] VITALS: BP 111/54; BMI 40.9
--- NOTE | 2017-02-19 15:00 | NUR ---
1420-RECD TO ROOM FROM INTERVENTIONAL RADIOLOGY. VITAL SIGNS PER FREQUENT VITAL SIGN SHEET. R GROIN DRESSING DRY AND INTACT. PEDAL PULSE PALPABLE. 1450-COMPLAINS OF BACK PAIN, CHRONIC. NORCO 5MG TWO TABLETS GIVEN. FINGER FOOD TRAY SERVED. REMINDED TO KEEP R GROIN STRAIGHT. BED TILTED. HERE AT BEDSIDE.
--- NOTE | 2017-02-19 18:39 | NUR ---
4770--IV DC'D, PT UP TO DRESS AT THIS TIME. VERITO WILSON 1640--DISCHARGE INSTRUCTIONS GIVEN, PT VERBALIZES UNDERSTANDING. PT OFF UNIT VIA WC. VERITO WILSON
== END 2017-02-19 18:40 | disposition home or self-care (01) ==
LOC: D.OPS 09:00 → D.SDCHOLD 09:49 → EDSTATUS 13:00 → D.OPS 18:40
PROVIDERS: Radiology Diagnostic Radiology
DX: I65.21 Occlusion and stenosis of right carotid artery (principal); I10 Essential (primary) hypertension; E11.9 Type 2 diabetes mellitus without complications; Z01.812 Encounter for preprocedural laboratory examination

== ENCOUNTER → 2017-02-27 14:12 | Outpatient (CLI) | payer MEDICARE ==
[2017-02-19 11:27] VITALS: BMI 40.9
[~2017-02-27 14:12] MED LIST changes: +CATAPRES0.1 MG PO
== END | disposition home or self-care (01) ==
LOC: D.US 14:12
DX: I65.23 Occlusion and stenosis of bilateral carotid arteries (principal)

== ENCOUNTER 2018-01-04 06:04 | Observation (INO) | payer MEDICARE ==
[~2018-01-04] VITALS: Ht 161.3 cm; Wt 106.4 kg
--- NOTE | ~2018-01-04 | EC ---
PATIENT:KELLY DAS DATE OF SERVICE: 01/04/18 SEX: F MEDICAL RECORD: [id number] DATE OF : 50 LOCATION:D.M2 D.212 AGE OF PATIENT: 67 ADMISSION DATE: 01/04/18 REFERRING PHYSICIAN: INTERPRETING PHYSICIAN: FARIBA KILLIAN MD ECHOCARDIOGRAM REPORT ECHO CHARGES 4 ECHO COMPLETE Date: 01/04 CLINICAL DIAGNOSIS: CP BRADYCARDIA ECHOCARDIOGRAPHIC MEASUREMENTS (adult normal given) AC root (d.<3.7cm) 2.2 cm LV Septum d (<1.2 cm> 1.2 cm Valve Excursion 1.1 cm LV Septum (systole) 1.4 cm Left Atria (s.<4.0cm> 4.2 cm LVPW d(<1.2cm) 1.1 cm RV (d.<2.3cm) 3.3 cm LVPW (sytole) 1.1 cm LV diastole(<5.6CM) 5.6 cm MV E-F(>70mm/sec) cm LV systole 4.3 cm LVOT Diameter 1.9 cm MV exc.(>10mm) cm Est.ejection fraction (50-75%) % DOPPLER: LVIT cm/sec A 88 cm/sec E 91 cm/sec LA cm/sec RVSP 30.8 mmHg LVOT 96 cm/sec AOP1/2T m/s Asc. Ao 144 cm/sec RVOT 98 cm/sec RA cm/sec PA 115 cm/sec AV Gradient Peak 8.3 mmHg AV Mean 5.0 mmHg AV Area 2.2 cm MV Gradient Peak 4.5 mmHg MV Mean 1.6 mmHg MV Area cm COMMENTS: Contact Worker: Jessica RICHARDS Project Specialist: 4 Dr. Killian TAPE# PACS Pericardial Effusion N DATE OF SERVICE: PROCEDURE: Transthoracic echocardiogram. FINDINGS: 1. Left ventricle appears to be normal. Ejection fraction of 55% to 60%. 2. Left atrium is possibly mildly dilated, but is not well visualized. 3. The aortic valve appears to be normal. 4. The mitral valve appears to be normal. 5. The tricuspid valve appears to be normal. ECHOCARDIOGRAM REPORT [id number] KELLY DAS 6. The RVSP is normal. 7. The right ventricle is normal. 8. The right atrium is normal. 9. The pulmonic valve is normal. There is no pericardial effusion. CONCLUSIONS: This patient has a normal echocardiogram for patient's stated age. TRANSINT:[id number] Voice Confirmation ID: [id number] DOCUMENT ID: [id number] FARIBA KILLIAN MD at 0749 CC: [id number] DICTATION DATE: 01/04/182251 FIRST PRESS OPERATOR: 01/05/18 0545 DIS IN 01/05/18 [place] [id number] [place] [id number]
[2018-01-04 06:48] LABS: BASOPHILS 0.3 % (0-2); EOSINOPHILS 3.5 % (0-7); HEMATOCRIT 37.9 % (36.0-48.0); HEMOGLOBIN 12.8 g/dL (12-16); IMMATURE GRANULOCYTES 0.2 % (0-5); LYMPHOCYTES 22.5 % (15-50); MCH 32.7 pg (26.0-34.0); MCHC 33.8 g/dL (31.0-37.0); MCV 96.7 fL (80.0-100.0); MEAN PLATELET VOLUME 9.2 fL (7.4-10.4); MONOCYTES 7.8 % (2-11); NEUTROPHILS 65.7 % (40-80); PLATELET COUNT 175 10x3/uL (130-400); RBC 3.92 10x6/uL (4.00-5.40); RDW 13.2 % (11.5-14.5); WBC 6.3 10x3/uL (4.8-10.8)
[2018-01-04 07:14] LABS: INR 1.03 (0.85-1.17); PROTIME 13.1 SECONDS (11.6-15.0)
[2018-01-04 07:15] LABS: APTT 27.1 SECONDS (22.8-39.4)
[2018-01-04 07:16] LABS: D-DIMER-QUANTITATIVE 0.46 ug/mLFEU (0.20-0.54)
[2018-01-04 07:27] LABS: ALBUMIN 3.7 g/dL (3.4-5.0); ALKALINE PHOSPHATASE 85 U/L (46-116); ALT (SGPT) 42 U/L (10-68); BILIRUBIN - TOTAL 0.39 mg/dL (0.2-1.3); CALCIUM 8.5 mg/dL (8.5-10.1); CHLORIDE - SERUM 98 mmol/L (98-107); CREATINE KINASE 49 UL (21-215); CREATININE - SERUM 1.3 mg/dL (0.6-1.3); MAGNESIUM - SERUM 1.5 mg/dL (1.8-2.4); POTASSIUM - SERUM 4.3 mmol/L (3.5-5.1); PROTEIN - SERUM 7.6 g/dL (6.4-8.2); SODIUM 134 mmol/L (136-145); UREA NITROGEN 22 mg/dL (7-18); eGFR NON AFRICAN AMERICAN 43 mL/min (90-120)
[2018-01-04 07:28] LABS: CALC OSMOLALITY 272 mosm/kg (275-300); GLUCOSE 136 mg/dL (74-106); TROPONIN-I < 0.017 ng/mL (0.000-0.060)
[2018-01-04 11:29] VITALS: BP 142/77; Ht 161.3 cm; Wt 106.4 kg
[2018-01-04 12:20] LABS: THYROID STIMULATING HORMONE 6.17 uIU/mL (0.36-3.74)
[2018-01-04 12:58] LABS: CKMB 0.7 U/L (0.0-3.6); CREATINE KINASE 46 UL (21-215); TROPONIN-I < 0.017 ng/mL (0.000-0.060)
[2018-01-04] MEDS ORDERED: BACTRIM DS TABL1 TAB PO (15:19)
[2018-01-04 16:55] VITALS: BP 169/41
[2018-01-04 20:20] VITALS: BP 148/55
[2018-01-05 00:30] VITALS: BP 132/58
[2018-01-05 04:30] VITALS: BP 160/58
[2018-01-05 05:20] LABS: BASOPHILS 0.4 % (0-2); EOSINOPHILS 3.1 % (0-7); HEMATOCRIT 36.2 % (36.0-48.0); HEMOGLOBIN 12.1 g/dL (12-16); IMMATURE GRANULOCYTES 0.2 % (0-5); LYMPHOCYTES 36.2 % (15-50); MCH 32.7 pg (26.0-34.0); MCHC 33.4 g/dL (31.0-37.0); MCV 97.8 fL (80.0-100.0); MEAN PLATELET VOLUME 10.5 fL (7.4-10.4); MONOCYTES 10.4 % (2-11); NEUTROPHILS 49.7 % (40-80); PLATELET COUNT 199 10x3/uL (130-400); RDW 13.2 % (11.5-14.5); WBC 5.2 10x3/uL (4.8-10.8)
[2018-01-05 05:58] LABS: ALBUMIN 3.4 g/dL (3.4-5.0); ANION GAP 10.5 mmol/L (8-16); BILIRUBIN - TOTAL 0.2 mg/dL (0.2-1.3); CALCIUM 8.5 mg/dL (8.5-10.1); CREATININE - SERUM 1.2 mg/dL (0.6-1.3); MAGNESIUM - SERUM 1.6 mg/dL (1.8-2.4); POTASSIUM - SERUM 4.5 mmol/L (3.5-5.1); PROTEIN - SERUM 6.8 g/dL (6.4-8.2)
[2018-01-05 07:47] VITALS: BP 186/57
[2018-01-05 11:18] VITALS: BP 132/73
[2018-01-05 14:57] VITALS: BP 133/51
== END 2018-01-05 16:05 | disposition home or self-care (01) ==
LOC: D.ER 06:04 → D.M2 06:44 → OBSVTIME 06:44 → D.M2 06:44
PROVIDERS: Family Medicine; Internal Medicine Cardiovascular Disease
DX: R00.1 Bradycardia, unspecified (principal); E11.65 Type 2 diabetes mellitus with hyperglycemia; E11.40 Type 2 diabetes mellitus with diabetic neuropathy, unspecified; E03.9 Hypothyroidism, unspecified; I10 Essential (primary) hypertension; G89.29 Other chronic pain; M54.9 Dorsalgia, unspecified; E66.01 Morbid (severe) obesity due to excess calories; Z68.41 Body mass index [BMI] 40.0-44.9, adult; Z87.891 Personal history of nicotine dependence; F32.9 Major depressive disorder, single episode, unspecified; F41.9 Anxiety disorder, unspecified

== ENCOUNTER → 2018-03-17 16:09 | Outpatient (CLI) | payer MEDICARE ==
[2018-01-04 11:29] VITALS: BMI 40.9
[~2018-03-17 16:09] MED LIST changes: +BACTRIM DS TABL1 TAB PO
== END | disposition home or self-care (01) ==
LOC: D.US 03-16 13:00
DX: I65.23 Occlusion and stenosis of bilateral carotid arteries (principal)

== ENCOUNTER 2018-09-04 01:01 | Inpatient (IN) | payer MEDICARE ==
[~2018-09-04] VITALS: Ht 161.3 cm; Wt 109.3 kg
--- NOTE | ~2018-09-04 | HEMODYNAMI ---
PATIENT:KELLY DAS MEDICAL RECORD: [id number] : 50 LOCATION:D.CO D.2237 ADMISSION DATE: 09/04/18 Generatedon:09/16/201816:55 Patient name: KELLY DAS Patient #: [id number] SSN: : 1950 Date of study: 09/16/2018 Page: Of Hemodynamic Procedure Report Patient Data Patient Demographics Procedure consent was obtained First Name: KELLY Gender: Female Last Name: THIAGO : 1950 [facility] Initial: JENNIFER Age: 68 year(s) Patient #: [id number] Race: Unknown Additional ID: [id number] Contact details Address: [address] [place] [address] [place] State: [place] City: [place] Zip code: [address] Admission Admission Data Admission Date: 09/04/2018 Admission Time: 2:44 Admit Source: Other Room #: D.2237 Lab Results Lab Result Date: 09/10/2018 Lab Result Time: 0:00 CBC Name Units Result Min Max Hematocrit % 27 *-(----)-- 42 54 Hemoglobin g/dl 9 *-(----)-- 13.5 17.5 Procedure Procedure Types Cath Procedure Peripheral Cath Diagnostic Procedure Miscellaneous Procedure Description Procedure Date Procedure Date: 09/16/2018 Procedure Start Time: 16:38 Procedure Staff Name Function Jamir Álvarez MD Performing Physician Tc Brush RT Monitor FRANCES COX RT Scrub Mallika Randhawa RN Nurse Procedure Data Cath Procedure Fluoroscopy Diagnostic fluoroscopy Total fluoroscopy Time: 1.5 time: 1.5 min min Diagnostic fluoroscopy Total fluoroscopy dose: 50 dose: 50 mGy mGy Procedure Medications Medication Administration Route Dosage Heparin Flush Bag added to field 2 bags (1000units/500ml NS) Lidocaine 1% added to field 20 Fentanyl I.V. 50 mcg Hemodynamics Rest Heart Rate: 79 (bpm) Snapshots Pre Cath Intra NCS Post Cath Vital Signs Time Heart Resp SPO2 etCO2 NIBP (mmHg) Rhythm Pain Sedation Rate (ipm) (%) (mmHg) Status Level (bpm) 16:31:21 89 14 94 45.4 167/81(117) NSR 0 (11) 10(A) , No pain 16:36:20 82 17 98 44.7 Measuring NSR 0 (11) 10(A) , No pain 16:36:31 84 16 98 35.7 147/73(110) NSR 0 (11) 10(A) , No pain 16:40:47 85 17 98 39.5 153/82(111) NSR 0 (11) 10(A) , No pain 16:45:05 82 18 98 28.3 140/70(95) NSR 0 (11) 10(A) , No pain 16:49:19 79 17 98 39.4 152/79(97) NSR 0 (11) 10(A) , No pain 16:53:55 17 40.2 No Cuff NSR 0 (11) 10(A) , No pain Medications Time Medication Route Dose Verified Delivered Reason Notes Effe ctiveness by by 16:38:20 Heparin Flush added 2 Jamir Bowie used for Bag to bags Preeti Álvarez procedure (1000units/500ml field MD SAM NS) 16:38:31 Lidocaine 1% added 20ml Jamir Bowie for local to vial Preeti Álvarez anesthetic field MD SAM 16:38:46 Fentanyl I.V. 50 Jamir Jacobsenody Per mcg Preeti Randhawa RN physician Procedure Log Time Note 16:20:53 Tc Brush RT (R) (CV) sent for patient. Start room use. 16:21:10 Time tracking: Regular hours (M-F 7:00 - 5:00) 16:21:48 Patient received from Med/Surg to IR Alert and oriented. Tansferred to table in Prone position. 16:21:49 Correct patient and procedure confirmed by team. 16:21:51 Signed procedure consent form obtained from patient. 16:21:52 Full Disclosure recording started 16:21:52 - 16::55 Pre-procedure instructions explained to patient. 16::56 Pre-op teaching completed and patient verbalized understanding. 16:25:17 Is the patient allergic to Iodine/contrast media? No. 16:25:34 Patient diabetic? Yes. 16:25:36 If diabetic: On Metformin? No 16:25:39 Family unavailable. 16:25:43 Patient NPO since Lunch. 16:25:48 ----Pre-sedation anethsthesia assessment.---- 16:25:52 Previous problem with sedation/anesthesia? No ? 16:25:53 Snore? Yes 16:25:54 Sleep apnea? No 16:25:57 Deviated septum? No 16:25:59 Opens mouth fully? Yes 16:26:00 Sticks out tongue? Yes 16:26:05 Airway obstruction? No ? 16:26:13 Dentures? Yes top plate in tight 16:26:22 Patient pain scale 0/10 no pain. 16:26:40 IV patent on arrival in right antecubital with 0.45%NaCl at [facility]. 16:26:42 Sharps counted by scrub and verified by R.N. 16:26:43 Alarms reviewed by R. N. 16:27:00 left Lumbar area was prepped with chlora-prep and draped in sterile fashion 16:30:10 ECG and BP/O2 sat monitors applied to patient. 16:30:10 Vital chart was started 16:30:11 Baseline sample Acquired. 16::27 --------ALL STOP TIME OUT------ 16::28 Final Timeout: patient, procedure, and site verified with staff and physician. All members of the team are in agreement. 16:31:32 Lumbar site verified by team. 16:31:40 Fire Safety Assessment: A--An alcohol-based skin anteseptic being used preoperatively., C--Open oxygen or nitrous oxide is being used. 16:31:47 Maximum allowable Isovue 300 dose 300ml. Physician notified. (300ml for normal creatinines. For patients with creatinine of 1.7 or higher multiply weight(kg) x 5 divided by creatinine.) 16:31:56 Sedation plan: Local Anesthetic Medication:Lidocaine 16:32:46 Procedure started. 16:38:02 Local anesthetic to Lumbar area with Lidocaine 1% by Jamir Álvarez MD.INITIAL ACCESS ONLY 16:38:20 Heparin Flush Bag (1000units/500ml NS) 2 bags added to field was administered by Jamir Álvarez MD; used for procedure; 16:38:21 Abscession 12 FR drainage catheter ([id number]) opened to sterile field. 16:38:21 STOPCOCK 3-Way Large Bore ([id number]) opened to sterile field. 16:38:31 Lidocaine 1% 20ml vial added to field was administered by Jamir arroyo MD; for local anesthetic; 16:38:42 FRANCISCO J .035 15cm wire ([id number]) opened to sterile field. 16:38:46 Fentanyl 50 mcg I.V. was administered by Mallika Randhawa RN; Per physician; 16:39:05 BAG, DRAINAGE EMPTY 600ML W/AIDE ([id number]) opened to sterile field. 16:44:45 SUTURE ETHILON 2-0 BLK MONO FS opened to sterile field. 16:45:20 Procedure ended.(Physican Out) 16:45:44 Fluoroscopy time 01.50 minutes. 16:45:50 Fluoroscopy dose: 50 mGy 16:45:50 Flurop Dose total: 50 16:48:17 Sharps counted by scrub and verified by R.N. 16:48:36 Insertion/operative site no bleeding no hematoma. 16:50:16 Post-op/insertion site Left Lumbar area dressed using a 4 x 4 and Tegaderm. 16:50:33 Post procedure instruction explained to patient.Patient verbalizes understanding. 16:53:32 Procedure and supply charges have been captured, reviewed, submitted an d are correct. 16:53:41 Post Lumbar area:stable 16:53:51 Report given to Med/Surg. 16:53:54 Patient transfered to Med/Surg with Bed. 16:55:06 Vital chart was stopped Device Usage Item Name Manufacture Quantity Catalog Hospital Part Current Minimal Lo t# / Number Charge Number Stock Stock Serial# Code Abscession [employer] 1 [id number] [id number] [id number] 5 12 FR drainage catheter ([id number]) STOPCOCK [facility] 1 [id number] 7771 [id number] 5 95 61999 3-Way Large Bore ([id number]) FRANCISCO J .035 [employer] 1 [id number] [id number] [id number] 5 85 13324 15cm wire ([id number]) BAG, [employer] 1 [id number] [id number] 5 DRAINAGE EMPTY 600ML W/AIDE ([id number]) SUTURE [employer] 1 [id number] [id number] 5 ETHILON 2-0 BLK MONO FS Signature Audit [place] Stage Time Signature Unsigned Intra-Procedure 09/16/2018 Tc 4:55:03 PM Trudi RT (R) (CV) Signatures Monitor : Tc Signature : Trudi RT Date : Time : [place] [address] [place] [address]
--- NOTE | ~2018-09-04 | HEMODYNAMI ---
PATIENT:KELLY DAS MEDICAL RECORD: [id number] : 50 [place]ATION:[place] D.2237 ADMISSION DATE: 09/04/18 Generatedon:09/10/201811:31 Patient name: KELLY DAS Patient #: [id number] SSN: : 1950 Date of study: 09/10/2018 Page: Of Hemodynamic Procedure Report Patient Data Patient Demographics Procedure consent was obtained First Name: KELLY Gender: Female Last Name: THIAGO : 1950 [facility] Initial: JENNIFER Age: 68 year(s) Patient #: [id number] Race: Unknown Additional ID: [id number] Contact details Address: [address] [place] [address] [place] State: [place] City: [place] Zip code: [address] Admission Admission Data Admission Date: 09/04/2018 Admission Time: 2:44 Admit Source: Other Room #: D.2237 Lab Results Lab Result Date: 09/10/2018 Lab Result Time: 0:00 CBC Name Units Result Min Max Hematocrit % 27 *-(----)-- 42 54 Hemoglobin g/dl 9 *-(----)-- 13.5 17.5 Procedure Procedure Types Cath Procedure Diagnostic Procedure VIRGILIO Procedure Description Procedure Date Procedure Date: 09/10/2018 Procedure Start Time: 10:59 Procedure Staff Name Function Jamal Li MD Performing Physician Benny Nunez RT Monitor Diego Aiken RT Therapeutic Sales Specialist Michael Ocasio RT Therapeutic Sales Specialist Allen Crabtree CRNA Additional personnel Gagan Kenny Body Fitter Bernardo Thorne RN Nurse Procedure Data Cath Procedure Fluoroscopy Diagnostic fluoroscopy Total fluoroscopy Time: 0 time: 0 min min Diagnostic fluoroscopy Total fluoroscopy dose: 0 dose: 0 mGy mGy Contrast Material Contrast Material Type Amount (ml) Isovue 300 0 Estimated blood loss: 0 ml Procedure Complications No complications Procedure Medications Medication Administration Route Dosage 0.9% NaCl I.V. 100 ml/hr Oxygen etCO2 Nasal cannula 4 l/min Hurricaine [place] P.O. 1 Sprays Refer to Anesthesia Notes for Sedation Medications Hemodynamics Rest HGB: 9 (g/dl) Heart Rate: 94 (bpm) Snapshots Pre Cath Intra NCS Post Cath Vital Signs Time Heart Resp SPO2 etCO2 NIBP (mmHg) Rhythm Pain Sedation Rate (ipm) (%) (mmHg) Status Level (bpm) 11:12:03 96 22 98 19.4 190/88(133) NSR 0 (11) 10(A) , No pain 11:16:48 89 14 98 28.4 179/87(116) NSR 0 (11) 10(A) , No pain 11:21:08 72 17 99 19.4 133/55(96) NSR 0 (11) 10(A) , No pain 11:26:07 82 22 98 32.9 131/50(82) NSR 0 (11) 10(A) , No pain 11:30:07 0 No Cuff NSR 0 (11) 10(A) , No pain Medications Time Medication Route Dose Verified Delivered Reason Notes Effecti veness by by 11:10:30 0.9% NaCl I.V. 100 Bernardo Bernardo Per ml/hr Mati Thorne physician RN RN 11:10:47 Oxygen etCO2 4 Bernardo Bernardo for low 02 Nasal l/min Mati Thorne sats cannula RN RN 11:11:05 Hurricaine P.O. 1 Bernardo Bernardo for local Reliance Sprays Mati Thorne anesthetic RN RN 11:18:08 Refer to Allen Villa for Anesthesia Leyda Crabtree sedation Notes for FARZANEH SEAMAN Sedation Medications Procedure Log Time Note 10:55:42 Diego Aiken RT(R) sent for patient. Start room use. 10:59:59 Informed consent obtained and on chart 11:00:44 Gagan Kenny Collar Setter Overlock present for VIRGILIO. 11:05:14 Allen Crabtree CRNA present and monitoring patient for TIVA. 11:06:01 Admit Source: Other 11:06:40 Diagnostic Cath status Elective 11:06:51 Time tracking: Regular hours (M-F 7:00 - 5:00) 11:06:55 Plan of Care:Hemodynamics will remain stable., Cardiac rhythm will remain stable., Comfort level will be maintained., Respiratory function will remain adequate., Patient/ family verbilizes understanding of procedure., Procedure tolerated without complication., Recovers from procedure without complications.. 11:06:59 Patient received from Med/Surg to CCL 1 Alert and oriented. Tansferred to table in Supine position. 11:07:00 Warm blankets applied, and london hugger turned on for patient comfort. 11:07:00 Correct patient and procedure confirmed by team. 11:07:02 ECG and BP/O2 sat monitors applied to patient. 11:08:44 H&P Date Dictated: 09/09/2018 Within 30 days and on chart.. 11:10:30 0.9% NaCl 100 ml/hr I.V. was administered by Bernardo Thorne RN; Per physician; 11:10:37 Vital chart was started 11:10:40 Baseline sample Acquired. 11:10:43 Rhythm: sinus rhythm 11:10:44 Full Disclosure recording started 11:10:45 Pre-procedure instructions explained to patient. 11:10:45 Pre-op teaching completed and patient verbalized understanding. 11:10:47 Oxygen 4 l/min etCO2 Nasal cannula was administered by Bernardo Thorne RN; for low 02 sats; 11:10:59 Family unavailable. 11:11:01 Patient NPO since Midnight. 11:11:05 Hurricaine [place] 1 Sprays P.O. was administered by Bernardo Thorne RN; for local anesthetic; 11:11:30 Is the patient allergic to Iodine/contrast media? No. 11:11:31 Patient diabetic? No. 11:11:33 Previous problem with sedation/anesthesia? No ? 11:11:35 Snore? Yes 11:11:36 Sleep apnea? No 11:11:38 Deviated septum? No 11:11:39 Opens mouth fully? Yes 11:11:40 Sticks out tongue? Yes 11:11:43 Airway obstruction? Yes COPD 11:11:46 Dentures? Yes OUT 11:11:57 IV patent on arrival in left hand with 0.9% NaCl at [facility]. 11:12:07 Lab Result : Hemoglobin 9 g/dl 11:12:07 Lab Result : Hematocrit 27 % 11:12:09 Lab results completed and on chart. 11::59 Physician arrived 11::59 --------ALL STOP TIME OUT------ :59 Final Timeout: patient, procedure, and site verified with staff and physician. All members of the team are in agreement. 11:13:05 Fire Safety Assessment: C--Open oxygen or nitrous oxide is being used. 11:13:07 Physical assessment completed. ASA score P 3 - A patient with severe systemic disease as per Jamal Li MD. 11:13:10 Sedation plan: TIVA Medication:Propofol 11:17:46 VIRGILIO started. 11:18:08 Refer to Anesthesia Notes for Sedation Medications was administered by Allen Crabtree CRNA; for sedation; 11:21:52 VIRGILIO completed. 11:21:57 Procedure ended.(Physican Out) 11:25:54 Fluoroscopy time 00.00 minutes. 11:25:55 Fluoroscopy dose: 0 mGy 11:25:55 Flurop Dose total: 0 11:25:58 Contrast amount:Isovue 300 0ml. 11:26:09 Post-procedure physical assessment completed. ASA score P 3 - A patient with severe systemic disease as per Jamal Li MD. 11:26:11 Post procedure rhythm: unchanged. 11:26:15 Estimated blood loss: 0 ml 11:26:19 Post procedure instruction explained to patient.Patient verbalizes understanding. 11:29:28 Patient needs reinforcement of post procedure teaching. 11:30:24 Procedure and supply charges have been captured, reviewed, submitted and are correct. 11:30:26 Procedure Complication : No complications 11:30:28 Vital chart was stopped 11:30:29 See physician's report for complete and final results. 11:30:31 Report given to [facility]. 11:30:33 Patient transfered to [facility] with Stretcher. 11:30:46 End room use (Document Last) Signature Audit [place] Time Signature Unsigned Intra-Procedure 09/10/2018 Benny Nunez 11:31:06 AM RT(R) Signatures Monitor : Benny Nunez RT Signature : Date : Time : [facility] [address] [facility] [place] [address]
[2018-09-04 01:55] LABS: BASOPHILS 0.2 % (0-2); EOSINOPHILS 1.8 % (0-7); HEMATOCRIT 29.5 % (36.0-48.0); HEMOGLOBIN 9.5 g/dL (12-16); IMMATURE GRANULOCYTES 0.4 % (0-5); LYMPHOCYTES 20.3 % (15-50); MCH 32.3 pg (26.0-34.0); MCHC 32.2 g/dL (31.0-37.0); MCV 100.3 fL (80.0-100.0); MEAN PLATELET VOLUME 9.6 fL (7.4-10.4); MONOCYTES 9.5 % (2-11); NEUTROPHILS 67.8 % (40-80); PLATELET COUNT 227 10x3/uL (130-400); RBC 2.94 10x6/uL (4.00-5.40); RDW 14.3 % (11.5-14.5); WBC 9.3 10x3/uL (4.8-10.8)
[2018-09-04 02:03] LABS: APPEARANCE CLEAR (CLEAR); BILIRUBIN NEGATIVE (NEGATIVE); COLOR YELLOW (YELLOW); GLUCOSE NEGATIVE (NEGATIVE); KETONE NEGATIVE (NEGATIVE); NITRITE NEGATIVE (NEGATIVE); PROTEIN NEGATIVE (NEGATIVE); SPECIFIC GRAVITY 1.015 (1.005-1.020); UROBILINOGEN NORMAL (NORMAL)
[2018-09-04 02:29] LABS: CALCIUM 9.9 mg/dL (8.5-10.1); CARBON DIOXIDE 24.3 mmol/L (21.0-32.0); CHLORIDE - SERUM 104 mmol/L (98-107); CREATINE KINASE 756 UL (21-215); CREATININE - SERUM 1.5 mg/dL (0.6-1.3); POTASSIUM - SERUM 5.2 mmol/L (3.5-5.1); TROPONIN-I 0.059 ng/mL (0.000-0.060); UREA NITROGEN 40 mg/dL (7-18); eGFR NON AFRICAN AMERICAN 37 mL/min (90-120)
[2018-09-04 02:30] VITALS: BP 136/60
[2018-09-04 02:34] LABS: GLUCOSE 169 mg/dL (74-106)
[2018-09-04 02:35] LABS: CKMB 4.2 U/L (0.0-3.6)
[2018-09-04 02:39] LABS: CALC OSMOLALITY 285 mosm/kg (275-300); SODIUM 136 mmol/L (136-145)
[2018-09-04] MEDS ORDERED: BASAGLAR K100 UNIT/1 SC (05:20)
[2018-09-04] MEDS ORDERED: NOVOLOG100 UNIT/1 SC (05:22)
[2018-09-04 05:24] VITALS: BP 150/75; BMI 42.1
[2018-09-04 14:08] VITALS: BP 136/84
[2018-09-04 14:11] VITALS: BMI 42.0
[2018-09-04 14:40] LABS: % SATURATION 12 % (15-55); IRON 24 ug/dl (35-150); TOTAL IRON BIND CAPACITY 188 ug/dl (260-445); UNSAT IRON BIND CAPACITY 164 ug/dl (150-375)
[2018-09-04 17:26] VITALS: BP 128/69
[2018-09-04 20:00] VITALS: BP 134/71
[2018-09-05] VITALS: BP 161/71
[2018-09-05 04:00] VITALS: BP 137/54
[2018-09-05 05:47] LABS: BASOPHILS 0.3 % (0-2); EOSINOPHILS 2.5 % (0-7); HEMATOCRIT 26.1 % (36.0-48.0); HEMOGLOBIN 8.4 g/dL (12-16); IMMATURE GRANULOCYTES 0.4 % (0-5); LYMPHOCYTES 20.8 % (15-50); MCH 31.9 pg (26.0-34.0); MCHC 32.2 g/dL (31.0-37.0); MCV 99.2 fL (80.0-100.0); MEAN PLATELET VOLUME 9.1 fL (7.4-10.4); MONOCYTES 9.3 % (2-11); NEUTROPHILS 66.7 % (40-80); PLATELET COUNT 245 10x3/uL (130-400); RBC 2.63 10x6/uL (4.00-5.40); RDW 14.2 % (11.5-14.5)
[2018-09-05 05:55] LABS: WBC 6.9 10x3/uL (4.8-10.8)
[2018-09-05 06:24] LABS: ANION GAP 12.6 mmol/L (8-16); CALCIUM 9.4 mg/dL (8.5-10.1); CARBON DIOXIDE 26.9 mmol/L (21.0-32.0); POTASSIUM - SERUM 4.5 mmol/L (3.5-5.1)
[2018-09-05 08:45] VITALS: BP 136/63
[2018-09-05 12:58] VITALS: BP 106/72; BP 137/65
[2018-09-05 17:42] VITALS: BP 172/77
[2018-09-05 19:53] VITALS: BP 142/60
[2018-09-06] VITALS: BP 171/71
[2018-09-06 04:00] VITALS: BP 142/69
[2018-09-06 08:13] VITALS: BP 136/63
[2018-09-06 13:44] VITALS: BP 159/73
[2018-09-06 17:47] VITALS: BP 131/70
[2018-09-06 20:00] VITALS: BP 131/60
[2018-09-07] VITALS: BP 129/57
[2018-09-07 03:00] VITALS: BP 134/45
[2018-09-07 06:30] LABS: BASOPHILS 0.4 % (0-2); EOSINOPHILS 3.9 % (0-7); HEMOGLOBIN 9.1 g/dL (12-16); IMMATURE GRANULOCYTES 1.4 % (0-5); LYMPHOCYTES 28.5 % (15-50); MCH 32.2 pg (26.0-34.0); MCHC 32.5 g/dL (31.0-37.0); MCV 98.9 fL (80.0-100.0); MEAN PLATELET VOLUME 9.2 fL (7.4-10.4); MONOCYTES 10.2 % (2-11); NEUTROPHILS 55.6 % (40-80); RBC 2.83 10x6/uL (4.00-5.40); RDW 13.7 % (11.5-14.5); WBC 5.6 10x3/uL (4.8-10.8)
[2018-09-07 06:31] LABS: PLATELET COUNT 372 10x3/uL (130-400)
[2018-09-07 06:52] LABS: CALC OSMOLALITY 281 mosm/kg (275-300); CALCIUM 9.1 mg/dL (8.5-10.1); CARBON DIOXIDE 25.7 mmol/L (21.0-32.0); CHLORIDE - SERUM 103 mmol/L (98-107); CREATININE - SERUM 0.7 mg/dL (0.6-1.3); GLUCOSE 125 mg/dL (74-106); MAGNESIUM - SERUM 1.3 mg/dL (1.8-2.4); POTASSIUM - SERUM 4.2 mmol/L (3.5-5.1); SODIUM 141 mmol/L (136-145); UREA NITROGEN 12 mg/dL (7-18); eGFR NON AFRICAN AMERICAN 88 mL/min (90-120)
[2018-09-07 08:15] VITALS: BP 107/37
[2018-09-07 20:00] VITALS: BP 154/64
[2018-09-08] VITALS: BP 162/67
[2018-09-08 05:30] VITALS: BP 157/68
[2018-09-08 06:32] LABS: BASOPHILS 0.2 % (0-2); EOSINOPHILS 2.7 % (0-7); HEMATOCRIT 29.8 % (36.0-48.0); HEMOGLOBIN 9.8 g/dL (12-16); IMMATURE GRANULOCYTES 1.4 % (0-5); LYMPHOCYTES 28.4 % (15-50); MCH 32.2 pg (26.0-34.0); MCHC 32.9 g/dL (31.0-37.0); MEAN PLATELET VOLUME 9.4 fL (7.4-10.4); MONOCYTES 9.7 % (2-11); NEUTROPHILS 57.6 % (40-80); RBC 3.04 10x6/uL (4.00-5.40); RDW 13.6 % (11.5-14.5); WBC 5.9 10x3/uL (4.8-10.8)
[2018-09-08 06:41] LABS: PLATELET COUNT 228 10x3/uL (130-400)
[2018-09-08 07:40] LABS: CALC OSMOLALITY 283 mosm/kg (275-300); CALCIUM 9.2 mg/dL (8.5-10.1); CHLORIDE - SERUM 105 mmol/L (98-107); CREATININE - SERUM 0.8 mg/dL (0.6-1.3); GLUCOSE 124 mg/dL (74-106); MAGNESIUM - SERUM 1.2 mg/dL (1.8-2.4); POTASSIUM - SERUM 4.4 mmol/L (3.5-5.1); SODIUM 142 mmol/L (136-145); UREA NITROGEN 12 mg/dL (7-18); eGFR NON AFRICAN AMERICAN 75 mL/min (90-120)
[2018-09-08 09:58] VITALS: BP 124/52
[2018-09-08 11:53] VITALS: BP 138/68
--- NOTE | 2018-09-08 14:58 | MORECARE ---
CASE MANAGEMENT DISCHARGE SUMMARY PATIENT: KELLY DAS UNIT: [id number] ADM DATE: 09/04/18 AGE: 68 : 50 SEX: F ROOM/BED: D.2237 AUTHOR: TAMMY DAVIES PHYSICIAN: REFERRING PHYSICIAN: VINICIUS INFANTE MD DATE OF SERVICE: 09/08/18 Discharge Plan Patient Name: KELLY DAS Facility: [facility]:[place] : 1950 Planned Disposition: Home with Home Health Anticipated Discharge Date: Discharge Date: Expected LOS: Initial Reviewer: [email or web address] Initial Review Date: 09/04/2018 Generated: 09/08/18 3:58 pm Patient Name: KELLY DAS Page [id number] at 6688 All edits/amendments must be made on the electronic document DICTATION DATE: 09/08/181456 [facility] DIRECTOR: DESIRAE 09/08/181456 RPT#: [id number] DC DATE: STATUS: ADM IN [facility] [address] [place] [address] END OF REPORT
--- NOTE | 2018-09-08 15:09 | MORECARE ---
CASE MANAGEMENT DISCHARGE SUMMARY PATIENT: KELLY LUJAN UNIT: [id number] ADM DATE: 09/04/18 AGE: 68 : 50 SEX: F ROOM/BED: D.2237 AUTHOR: KEKEDOC PHYSICIAN: REFERRING PHYSICIAN: VINICIUS INFANTE MD DATE OF SERVICE: 09/08/18 Discharge Plan Patient Name: KELLY LUJAN Facility: [facility]:[place] : 1950 Planned Disposition: Home with Home Health Anticipated Discharge Date: Discharge Date: Expected LOS: Initial Reviewer: [email or web address] Initial Review Date: 09/04/2018 Generated: 09/08/18 4:09 pm Comments DCP- Discharge Planning Updated by [email or web address]: Rossy Jimenez on 09/08/18 2:[address] Patient Name: KELLY LUJAN Admission Status: ER Accout number: [id number] Admission Date: 09-04-2018 : 1950 Admission Diagnosis:SEPSIS, UNSPECIFIED ORGANISM Attending: VINICIUS INFANTE Current LOS: 4 Anticipated DC Date: Planned Disposition: Home with Home Health Primary Insurance: MEDICARE A & B Discharge Planning Comments: CM met with patient to discuss discharge planning, she is alone in the room. She states that she lives with her , but her is in [facility] in [place]. She states that her son and daughter in law and grand daughter have been staying with her prior to her going back to the [facility]. She states that she has had [facility] and would like it resumed on discharge. I did discuss the availability of rehab, prison facilities and additional DME. She denies other needs besides the home health. She states she does have oxygen and portable oxygen that [facility] set up prior to her last discharge. She believes it came from DME supply in [place]. I called [facility] and they will resume on discharge. CM will continue to follow and assist with discharge planning/needs. Punch Finisher: Rossy Jimenez DCPIA - Discharge Planning Initial Assessment Updated by [email or web address]: Rossy Jimenez on 09/08/18 2:59 pm * Is the patient Alert and Oriented? Yes * How many steps to enter\exit or inside your home? 0/0 * PCP Dr. Daley in [place] * Pharmacy [facility] in [place] * Preadmission Environment Home with Family * ADLs Independent * Equipment Other Oxygen Walker * Other Equipment Portable oxygen * List name and contact numbers for known caregivers / representatives who currently or will assist patient after discharge: Linden Lujan - [phone] * Verbal permission to speak to the caregivers and representatives has been obtained from the patient. Yes * Community resources currently utilized Home Health * Please name any agencies selected above. [facility] [place] * Additional services required to return to the preadmission environment? No * Can the patient safely return to the preadmission environment? Yes * Has this patient been hospitalized within the prior 30 days at any hospital? Yes Coverage Notice Reviewer: [email or web address] Simran Jimenez Notice Issued Date-Time: 09/08/2018 15:04 Notice Type: Patient Choice Letter Notice Delivered To: Patient Relationship to Patient: Moss Picker Name: Delivery Method: HAND - Hand Delivered Renetta Days: Prior Verbal Notification: Recipient Understood Notice: Yes Recipient Signature: Yes Med Rec Note Co-signed by Attending: Coverage Notice Comment: ARIANNE for [facility] [place] Last DP export: 09/08/18 1:58 p Patient Name: KELLY LUJAN Page 82793 at 1509 All edits/amendments must be made on the electronic document DICTATION DATE: 09/08/18 1509 ROD FINISHER: DESIRAE 09/08/18 1509 RPT#: [id number] DC DATE: STATUS: ADM IN [facility] [address] [place] [address] END OF REPORT
[2018-09-08 16:57] VITALS: BP 156/73
[2018-09-08 21:22] VITALS: BP 173/63
[2018-09-09 00:19] VITALS: BP 168/74
[2018-09-09 05:05] VITALS: BP 123/63
[2018-09-09 06:13] LABS: BASOPHILS 0.2 % (0-2); EOSINOPHILS 3.5 % (0-7); HEMATOCRIT 29.4 % (36.0-48.0); HEMOGLOBIN 9.7 g/dL (12-16); IMMATURE GRANULOCYTES 1.3 % (0-5); LYMPHOCYTES 28.5 % (15-50); MCH 32.2 pg (26.0-34.0); MCV 97.7 fL (80.0-100.0); MEAN PLATELET VOLUME 8.9 fL (7.4-10.4); MONOCYTES 9.8 % (2-11); NEUTROPHILS 56.7 % (40-80); RBC 3.01 10x6/uL (4.00-5.40); RDW 13.8 % (11.5-14.5); WBC 5.9 10x3/uL (4.8-10.8)
[2018-09-09 06:31] LABS: CALC OSMOLALITY 285 mosm/kg (275-300); CALCIUM 9.7 mg/dL (8.5-10.1); CARBON DIOXIDE 31.9 mmol/L (21.0-32.0); CHLORIDE - SERUM 105 mmol/L (98-107); CREATININE - SERUM 0.6 mg/dL (0.6-1.3); GLUCOSE 118 mg/dL (74-106); MAGNESIUM - SERUM 1.3 mg/dL (1.8-2.4); POTASSIUM - SERUM 3.8 mmol/L (3.5-5.1); SODIUM 143 mmol/L (136-145); UREA NITROGEN 13 mg/dL (7-18); eGFR NON AFRICAN AMERICAN > 90 mL/min (90-120)
[2018-09-09 06:34] LABS: PLATELET COUNT 426 10x3/uL (130-400)
[2018-09-09 10:16] VITALS: BP 148/68
--- NOTE | 2018-09-09 10:39 | EC ---
PATIENT:KELLY DAS DATE OF SERVICE: 09/04/18 SEX: F MEDICAL RECORD: [id number] DATE OF : [birth year] LOCATION:D.MS [place] AGE OF PATIENT: 68 ADMISSION DATE: 09/04/18 REFERRING PHYSICIAN: INTERPRETING PHYSICIAN: NAE LI MD ECHOCARDIOGRAM REPORT ECHO CHARGES 4 ECHO COMPLETE Date: 09/04/18 CLINICAL DIAGNOSIS: ENDOCARDITIS ECHOCARDIOGRAPHIC MEASUREMENTS (adult normal given) AC root (d.<3.7cm) 2.6 cm LV Septum d (<1.2 cm> 0.7 cm Valve Excursion 1.4 cm LV Septum (systole) 1.5 cm Left Atria (s.<4.0cm> 4.6 cm LVPW d(<1.2cm) 0.9 cm RV (d.<2.3cm) 3.6 cm LVPW (sytole) 1.5 cm LV diastole(<5.6CM) 5.4 cm MV E-F(>70mm/sec) cm LV systole 4.4 cm LVOT Diameter 1.9 cm MV exc.(>10mm) cm Est.ejection fraction (50-75%) % DOPPLER: LVIT cm/sec A 101 cm/sec E 120 cm/sec LA cm/sec RVSP 37.5 mmHg LVOT 84 cm/sec AOP1/2T m/s Asc. Ao 132 cm/sec RVOT 100 cm/sec RA cm/sec PA 120 cm/sec AV Gradient Peak 7.0 mmHg AV Mean 4.4 mmHg AV Area 1.8 cm MV Gradient Peak 7.1 mmHg MV Mean 3.4 mmHg MV Area cm COMMENTS: Mechanical Cad Drafter: Jessica RICHARDS Broommaker: 1 Dr. Li TAPE# PACS Pericardial Effusion N DATE OF SERVICE: FINDINGS: 1. Left ventricular chamber size is within normal limits. Left ventricular systolic function is normal. Overall ejection fraction estimated at 50%. 2. Left atrium, right atrium, right ventricle chamber size is within normal limits. 3. Valvular structures have normal structure and motion. 4. Doppler interrogation reveals trace mitral regurgitation, trace tricuspid regurgitation, no other valvular insufficiency or stenosis. ECHOCARDIOGRAM REPORT [id number] KELLY DAS 5. No evidence of pericardial effusion or left ventricular thrombus. TRANSINT:[id number] Voice Confirmation ID: [id number] DOCUMENT ID: [id number] NAE LI MD at 1039 CC: [id number] DICTATION DATE: 09/04/18 121 SERVICE PERSON: 09/04/18 1226 ADM IN [place] [id number] [place] [id number]
[2018-09-09 12:48] VITALS: BP 160/58
[2018-09-09 15:46] VITALS: BP 138/84
[2018-09-09 15:58] VITALS: Ht 161.3 cm; Wt 109.3 kg
[2018-09-09 22:12] VITALS: BP 134/66
[2018-09-10 00:45] VITALS: BP 138/54
[2018-09-10 05:12] VITALS: BP 129/60
[2018-09-10 05:32] LABS: BASOPHILS 0.4 % (0-2); EOSINOPHILS 3.5 % (0-7); HEMATOCRIT 27.6 % (36.0-48.0); IMMATURE GRANULOCYTES 1.3 % (0-5); LYMPHOCYTES 33.5 % (15-50); MCH 31.8 pg (26.0-34.0); MCHC 32.6 g/dL (31.0-37.0); MCV 97.5 fL (80.0-100.0); MEAN PLATELET VOLUME 8.8 fL (7.4-10.4); NEUTROPHILS 52.3 % (40-80); PLATELET COUNT 409 10x3/uL (130-400); RBC 2.83 10x6/uL (4.00-5.40); RDW 13.8 % (11.5-14.5); WBC 5.5 10x3/uL (4.8-10.8)
[2018-09-10 05:50] LABS: CALCIUM 9.2 mg/dL (8.5-10.1); CARBON DIOXIDE 26.6 mmol/L (21.0-32.0); CHLORIDE - SERUM 104 mmol/L (98-107); GLUCOSE 148 mg/dL (74-106); MAGNESIUM - SERUM 1.4 mg/dL (1.8-2.4); POTASSIUM - SERUM 3.7 mmol/L (3.5-5.1); SODIUM 142 mmol/L (136-145); eGFR NON AFRICAN AMERICAN 75 mL/min (90-120)
[2018-09-10 05:56] LABS: CALC OSMOLALITY 289 mosm/kg (275-300); CREATININE - SERUM 0.8 mg/dL (0.6-1.3); UREA NITROGEN 23 mg/dL (7-18)
[2018-09-10 08:35] VITALS: BP 143/77
[2018-09-10 12:11] VITALS: BP 131/54
[2018-09-10 16:08] VITALS: BP 148/89
[2018-09-10 21:34] VITALS: BP 145/61
[2018-09-11] VITALS (13 sets, daily range): BP systolic 100–174; BP diastolic 39–73
[2018-09-11 06:24] LABS: HEMATOCRIT 30.3 % (36.0-48.0); HEMOGLOBIN 9.9 g/dL (12-16); MCHC 32.7 g/dL (31.0-37.0); MCV 98.1 fL (80.0-100.0); MEAN PLATELET VOLUME 8.8 fL (7.4-10.4); PLATELET COUNT 449 10x3/uL (130-400); RBC 3.09 10x6/uL (4.00-5.40); RDW 13.9 % (11.5-14.5)
[2018-09-11 06:28] LABS: WBC 7.7 10x3/uL (4.8-10.8)
[2018-09-11 06:30] LABS: CALC OSMOLALITY 284 mosm/kg (275-300); CALCIUM 9.4 mg/dL (8.5-10.1); CARBON DIOXIDE 27.4 mmol/L (21.0-32.0); CHLORIDE - SERUM 104 mmol/L (98-107); CREATININE - SERUM 0.8 mg/dL (0.6-1.3); GLUCOSE 115 mg/dL (74-106); MAGNESIUM - SERUM 1.3 mg/dL (1.8-2.4); POTASSIUM - SERUM 4.5 mmol/L (3.5-5.1); SODIUM 141 mmol/L (136-145); UREA NITROGEN 21 mg/dL (7-18); eGFR NON AFRICAN AMERICAN 75 mL/min (90-120)
[2018-09-11 07:41] LABS: INR 1.02 (0.85-1.17); PROTIME 12.9 SECONDS (11.6-15.0)
[2018-09-11 09:08] LABS: EOSINOPHILS 3 % (0-7); LYMPHOCYTES 25 % (15-50); MONOCYTES 14 % (2-11); NEUTROPHILS 51 % (40-80); PLATELET ESTIMATE INCREASED
[2018-09-11 09:10] LABS: ROULEAUX 1+
--- NOTE | 2018-09-11 15:14 | MORECARE ---
CASE MANAGEMENT DISCHARGE SUMMARY PATIENT: KELLY DAS UNIT: [id number] ADM DATE: 09/04/18 AGE: 68 : 50 SEX: F ROOM/BED: D.2237 AUTHOR: TAMMY DAVIES PHYSICIAN: REFERRING PHYSICIAN: VINICIUS INFANTE MD DATE OF SERVICE: 09/11/18 Discharge Plan Patient Name: KELLY DAS Facility: [facility]:[place] : 1950 Planned Disposition: Home with Home Health Anticipated Discharge Date: Discharge Date: Expected LOS: Initial Reviewer: [email or web address] Initial Review Date: 09/04/2018 Generated: 09/11/18 4:13 pm Comments DCP- Discharge Planning Updated by [email or web address]: Rossy Jimenez on 09/11/18 2:[address] Met with patient again today to discuss discharge planning. She still states she would like to go home with home health when she is discharged from here. I have ordered PT to evaluate safety of this. She states that she has an 18 year old grand daughter that can help her. I informed her that she will need someone who can assist with IV antibiotic administration. I informed her that home health typically only comes to the home 3 times a week and they would show her and a caregiver how to give the antibiotics. She states she will have someone available. I will meet with her again on Friday to assess her discharge needs. CM will continue to follow and assist with discharge planning/needs. DCP- Discharge Planning Updated by [id number]: Rossy Jimenez on 09/08/18 2:[address] Patient Name: KELLY DAS Admission Status: ER Accout number: [id number] Admission Date: 09-04-2018 : 1950 Admission Diagnosis:SEPSIS, UNSPECIFIED ORGANISM Attending: VINICIUS INFANTE Current LOS: 4 Anticipated DC Date: Planned Disposition: Home with Home Health Primary Insurance: MEDICARE A & B Discharge Planning Comments: CM met with patient to discuss discharge planning, she is alone in the room. She states that she lives with her , but her is in [facility] in [place]. She states that her son and daughter in law and grand daughter have been staying with her prior to her going back to the [facility]. She states that she has had [facility] and would like it resumed on discharge. I did discuss the availability of rehab, snf facilities and additional DME. She denies other needs besides the home health. She states she does have oxygen and portable oxygen that [facility] set up prior to her last discharge. She believes it came from DME supply in [place]. I called [facility] and they will resume on discharge. CM will continue to follow and assist with discharge planning/needs. Tag Machine Operator: Rossy Jimenez [facility] - Discharge Planning Initial Assessment Updated by [id number]: Rossy Jimenez on 09/08/18 2:59 pm * Is the patient Alert and Oriented? Yes * How many steps to enter\exit or inside your home? 0/0 * PCP Dr. Daley in [place] * Pharm[facility] in [place] * Preadmission Environment Home with Family * ADLs Independent * Equipment Other Oxygen Walker * Other Equipment Portable oxygen * List name and contact numbers for known caregivers / representatives who currently or will assist patient after discharge: Linden Tai - [phone] * Verbal permission to speak to the caregivers and representatives has been obtained from the patient. Yes * Community resources currently utilized Home Health * Please name any agencies selected above. [facility] in [place] * Additional services required to return to the preadmission environment? No * Can the patient safely return to the preadmission environment? Yes * Has this patient been hospitalized within the prior 30 days at any hospital? Yes Coverage Notice Reviewer: [id number] - Rossy Jimenez Notice Issued Date-Time: 09/08/2018 15:04 Notice Type: Patient Choice Letter Notice Delivered To: Patient Relationship to Patient: Ditch Cleaner Name: Delivery Method: HAND - Hand Delivered Renetta Days: Prior Verbal Notification: Recipient Understood Notice: Yes Recipient Signature: Yes Med Rec Note Co-signed by Attending: Coverage Notice Comment: ARIANNE for [facility] in [place] Last DP export: 09/08/18 2:09 p Patient Name: KELLY DAS Page [id number] at 1514 All edits/amendments must be made on the electronic document DICTATION DATE: 09/11/18 1513 CLOTH BOLT BANDER: DESIRAE 09/11/18 1513 RPT#: [id number] DC DATE: STATUS: ADM IN [facility] [address] [place] [address] END OF REPORT
[2018-09-11 17:03] LABS: EOS BF 13 %; MACROPHAGES BF 7 %; MESOTHELIALS BF 5 %; NEUT - BF 62 %
[2018-09-12 01:36] VITALS: BP 120/60
[2018-09-12 05:45] VITALS: BP 146/64
[2018-09-12 05:59] LABS: BASOPHILS 0.5 % (0-2); EOSINOPHILS 3.5 % (0-7); HEMATOCRIT 29.4 % (36.0-48.0); HEMOGLOBIN 9.5 g/dL (12-16); LYMPHOCYTES 36.4 % (15-50); MCH 31.8 pg (26.0-34.0); MCHC 32.3 g/dL (31.0-37.0); MCV 98.3 fL (80.0-100.0); MEAN PLATELET VOLUME 8.7 fL (7.4-10.4); MONOCYTES 8.9 % (2-11); NEUTROPHILS 49.7 % (40-80); PLATELET COUNT 410 10x3/uL (130-400); RBC 2.99 10x6/uL (4.00-5.40); RDW 13.7 % (11.5-14.5)
[2018-09-12 06:07] LABS: WBC 5.7 10x3/uL (4.8-10.8)
[2018-09-12 06:32] LABS: ALBUMIN 2.9 g/dL (3.4-5.0); ALKALINE PHOSPHATASE 109 U/L (46-116); ALT (SGPT) 26 U/L (10-68); BILIRUBIN - TOTAL 0.21 mg/dL (0.2-1.3); CALC OSMOLALITY 283 mosm/kg (275-300); CALCIUM 9.3 mg/dL (8.5-10.1); CARBON DIOXIDE 31.6 mmol/L (21.0-32.0); CHLORIDE - SERUM 104 mmol/L (98-107); CREATININE - SERUM 0.8 mg/dL (0.6-1.3); GLUCOSE 147 mg/dL (74-106); POTASSIUM - SERUM 4.1 mmol/L (3.5-5.1); PROTEIN - SERUM 6.9 g/dL (6.4-8.2); SODIUM 140 mmol/L (136-145); UREA NITROGEN 17 mg/dL (7-18); eGFR NON AFRICAN AMERICAN 75 mL/min (90-120)
[2018-09-12 09:10] VITALS: BP 148/76
[2018-09-12 13:35] VITALS: BP 161/68
[2018-09-12 16:48] VITALS: BP 163/73
[2018-09-12 21:01] VITALS: BP 144/53
[2018-09-13 01:20] VITALS: BP 145/80
[2018-09-13 06:57] LABS: BASOPHILS 0.2 % (0-2); EOSINOPHILS 3.3 % (0-7); HEMATOCRIT 31.1 % (36.0-48.0); HEMOGLOBIN 10.2 g/dL (12-16); IMMATURE GRANULOCYTES 1.1 % (0-5); LYMPHOCYTES 34.9 % (15-50); MCHC 32.8 g/dL (31.0-37.0); MCV 97.5 fL (80.0-100.0); MEAN PLATELET VOLUME 8.7 fL (7.4-10.4); NEUTROPHILS 52.5 % (40-80); PLATELET COUNT 391 10x3/uL (130-400); RBC 3.19 10x6/uL (4.00-5.40); RDW 13.7 % (11.5-14.5); WBC 5.4 10x3/uL (4.8-10.8)
[2018-09-13 07:22] LABS: ALBUMIN 3.2 g/dL (3.4-5.0); ALKALINE PHOSPHATASE 123 U/L (46-116); ALT (SGPT) 28 U/L (10-68); BILIRUBIN - TOTAL 0.26 mg/dL (0.2-1.3); CALCIUM 9.8 mg/dL (8.5-10.1); CARBON DIOXIDE 31.8 mmol/L (21.0-32.0); CHLORIDE - SERUM 104 mmol/L (98-107); CREATININE - SERUM 0.7 mg/dL (0.6-1.3); POTASSIUM - SERUM 3.9 mmol/L (3.5-5.1); PROTEIN - SERUM 7.3 g/dL (6.4-8.2); SODIUM 142 mmol/L (136-145); UREA NITROGEN 14 mg/dL (7-18); eGFR NON AFRICAN AMERICAN 88 mL/min (90-120)
[2018-09-13 07:24] LABS: CALC OSMOLALITY 283 mosm/kg (275-300); GLUCOSE 97 mg/dL (74-106)
[2018-09-13 09:25] VITALS: BP 161/71
[2018-09-13 13:48] VITALS: BP 120/37
[2018-09-13 17:18] VITALS: BP 128/48
[2018-09-13 19:45] VITALS: BP 129/64
[2018-09-13 23:55] VITALS: BP 136/73
[2018-09-14 03:45] VITALS: BP 167/58
[2018-09-14 06:49] LABS: BASOPHILS 0.3 % (0-2); EOSINOPHILS 2.1 % (0-7); HEMATOCRIT 30.7 % (36.0-48.0); HEMOGLOBIN 10.1 g/dL (12-16); LYMPHOCYTES 33.3 % (15-50); MCHC 32.9 g/dL (31.0-37.0); MCV 97.2 fL (80.0-100.0); MEAN PLATELET VOLUME 8.9 fL (7.4-10.4); MONOCYTES 9.4 % (2-11); NEUTROPHILS 53.9 % (40-80); PLATELET COUNT 389 10x3/uL (130-400); RBC 3.16 10x6/uL (4.00-5.40); RDW 13.5 % (11.5-14.5); WBC 6.1 10x3/uL (4.8-10.8)
[2018-09-14 06:55] LABS: ALBUMIN 3.2 g/dL (3.4-5.0); ALKALINE PHOSPHATASE 122 U/L (46-116); ALT (SGPT) 30 U/L (10-68); BILIRUBIN - TOTAL 0.23 mg/dL (0.2-1.3); CALC OSMOLALITY 281 mosm/kg (275-300); CALCIUM 9.5 mg/dL (8.5-10.1); CARBON DIOXIDE 28.7 mmol/L (21.0-32.0); CHLORIDE - SERUM 102 mmol/L (98-107); CREATININE - SERUM 0.7 mg/dL (0.6-1.3); GLUCOSE 92 mg/dL (74-106); PROTEIN - SERUM 6.9 g/dL (6.4-8.2); SODIUM 141 mmol/L (136-145); UREA NITROGEN 15 mg/dL (7-18); eGFR NON AFRICAN AMERICAN 88 mL/min (90-120)
[2018-09-14 06:58] LABS: POTASSIUM - SERUM 4.6 mmol/L (3.5-5.1)
[2018-09-14 08:48] VITALS: BP 146/64
[2018-09-14 13:27] VITALS: BP 161/87
[2018-09-14 18:36] VITALS: BP 158/84
[2018-09-14 21:12] VITALS: BP 106/61
[2018-09-15 01:43] VITALS: BP 95/53
[2018-09-15 05:31] VITALS: BP 96/33
[2018-09-15 06:27] LABS: BASOPHILS 0.3 % (0-2); EOSINOPHILS 2.4 % (0-7); HEMATOCRIT 29.8 % (36.0-48.0); HEMOGLOBIN 9.5 g/dL (12-16); IMMATURE GRANULOCYTES 1.1 % (0-5); LYMPHOCYTES 34.8 % (15-50); MCH 31.5 pg (26.0-34.0); MCHC 31.9 g/dL (31.0-37.0); MCV 98.7 fL (80.0-100.0); MEAN PLATELET VOLUME 8.7 fL (7.4-10.4); MONOCYTES 9.9 % (2-11); NEUTROPHILS 51.5 % (40-80); PLATELET COUNT 350 10x3/uL (130-400); RBC 3.02 10x6/uL (4.00-5.40); RDW 13.9 % (11.5-14.5); WBC 7.2 10x3/uL (4.8-10.8)
[2018-09-15 06:53] LABS: ANION GAP 11.2 mmol/L (8-16); BILIRUBIN - TOTAL 0.27 mg/dL (0.2-1.3); CALCIUM 9.2 mg/dL (8.5-10.1); CARBON DIOXIDE 31.1 mmol/L (21.0-32.0); POTASSIUM - SERUM 4.3 mmol/L (3.5-5.1); PROTEIN - SERUM 6.7 g/dL (6.4-8.2)
[2018-09-15 06:55] LABS: CREATININE - SERUM 1.5 mg/dL (0.6-1.3)
[2018-09-15 08:30] VITALS: BP 122/58; BP 123/68
[2018-09-15 14:00] VITALS: BP 111/56
[2018-09-15 18:52] VITALS: BP 114/37
[2018-09-15 21:37] VITALS: BP 136/66
[2018-09-16] VITALS (7 sets, daily range): BP systolic 99–152; BP diastolic 48–75
[2018-09-16 06:49] LABS: ALBUMIN 3.1 g/dL (3.4-5.0); ANION GAP 17.6 mmol/L (8-16); BILIRUBIN - TOTAL 0.27 mg/dL (0.2-1.3); CREATININE - SERUM 1.2 mg/dL (0.6-1.3); POTASSIUM - SERUM 4.8 mmol/L (3.5-5.1); PROTEIN - SERUM 6.5 g/dL (6.4-8.2); VANCOMYCIN - RANDOM 19.5 ug/mL (10.0-20.0)
[2018-09-16 06:50] LABS: CARBON DIOXIDE 23.2 mmol/L (21.0-32.0)
[2018-09-16 07:13] LABS: HEMATOCRIT 29.5 % (36.0-48.0); HEMOGLOBIN 9.4 g/dL (12-16); MCH 31.9 pg (26.0-34.0); MCHC 31.9 g/dL (31.0-37.0); MEAN PLATELET VOLUME 9.6 fL (7.4-10.4); RBC 2.95 10x6/uL (4.00-5.40); RDW 14.2 % (11.5-14.5); WBC 6.2 10x3/uL (4.8-10.8)
[2018-09-16 07:14] LABS: PLATELET COUNT 236 10x3/uL (130-400)
[2018-09-16 08:46] LABS: ANISOCYTOSIS OCC; EOSINOPHILS 1 % (0-7); LYMPHOCYTES 41 % (15-50); MONOCYTES 8 % (2-11); NEUTROPHILS 50 % (40-80); PLATELET ESTIMATE NORMAL; ROULEAUX OCC
--- NOTE | 2018-09-16 09:08 | MORECARE ---
CASE MANAGEMENT DISCHARGE SUMMARY PATIENT: KELLY LUJAN UNIT: [id number] ADM DATE: 09/04/18 AGE: 68 : 50 SEX: F ROOM/BED: D.2237 AUTHOR: TAMMY DAVIES PHYSICIAN: REFERRING PHYSICIAN: VINICIUS INFANTE MD DATE OF SERVICE: 09/16/18 Discharge Plan Patient Name: KELLY LUJAN Facility: [facility]:[place] : 1950 Planned Disposition: Home with Home Health Anticipated Discharge Date: Discharge Date: Expected LOS: Initial Reviewer: [id number] Initial Review Date: 09/04/2018 Generated: 09/16/18 10:08 am DCP- Discharge Planning Updated by [email or web address]: Rossy Jimenez on 09/11/18 2:[address] Met with patient again today to discuss discharge planning. She still states she would like to go home with home health when she is discharged from here. I have ordered PT to evaluate safety of this. She states that she has an 18 year old grand daughter that can help her. I informed her that she will need someone who can assist with IV antibiotic administration. I informed her that home health typically only comes to the home 3 times a week and they would show her and a caregiver how to give the antibiotics. She states she will have someone available. I will meet with her again on Friday to assess her discharge needs. CM will continue to follow and assist with discharge planning/needs. DCP- Discharge Planning Updated by [email or web address]: Rossy Jimenez on 09/08/18 2:[address] Patient Name: KELLY LUJAN Admission Status: ER Accout number: [id number] Admission Date: 09-04-2018 : 1950 Admission Diagnosis:SEPSIS, UNSPECIFIED ORGANISM Attending: VINICIUS INFANTE Current LOS: 4 Anticipated DC Date: Planned Disposition: Home with Home Health Primary Insurance: MEDICARE A & B Discharge Planning Comments: CM met with patient to discuss discharge planning, she is alone in the room. She states that she lives with her , but [facility] [place]. She states that her son and daughter in law and grand daughter have been staying with her prior to her going back to the [facility]. She states that she has had [facility] and would like it resumed on discharge. I did discuss the availability of rehab, custodial facilities and additional DME. She denies other needs besides the home health. She states she does have oxygen and portable oxygen that [facility] set up prior to her last discharge. She believes it came from DME supply in [place]. I called [facility] and they will resume on discharge. CM will continue to follow and assist with discharge planning/needs. Wire Mesh Knitter: Rossy Jimenez [facility] - Discharge Planning Initial Assessment Updated by [id number]: Rossy Jimenez on 09/08/18 2:59 pm * Is the patient Alert and Oriented? Yes * How many steps to enter\exit or inside your home? 0/0 * PCP Dr. Daley in [place] * Pharmacy [facility] in [place] * Preadmission Environment Home with Family * ADLs Independent * Equipment Other Oxygen Walker * Other Equipment Portable oxygen * List name and contact numbers for known caregivers / representatives who currently or will assist patient after discharge: Linden Lujan - [phone] * Verbal permission to speak to the caregivers and representatives has been obtained from the patient. Yes * Community resources currently utilized Home Health * Please name any agencies selected above. [facility] in [place] * Additional services required to return to the preadmission environment? No * Can the patient safely return to the preadmission environment? Yes * Has this patient been hospitalized within the prior 30 days at any hospital? Yes External Providers External Provider: [facility] Next Contact Date: Service Request Date: Service Type: Resolution: Reviewer: Comments: Coverage Notice Reviewer: [id number] - Rossy Jimenez Notice Issued Date-Time: 09/08/2018 15:04 Notice Type: Patient Choice Letter Notice Delivered To: Patient Relationship to Patient: Vest Finisher Name: Delivery Method: HAND - Hand Delivered Renetta Days: Prior Verbal Notification: Recipient Understood Notice: Yes Recipient Signature: Yes Med Rec Note Co-signed by Attending: Coverage Notice Comment: ARIANNE for [facility] in [place] Last DP export: 09/11/18 2:14 pm Patient Name: KELLY LUJAN Page [id number] at 0908 All edits/amendments must be made on the electronic document DICTATION DATE: 09/16/18907 WATER/WASTEWATER PROJECT ENGINEER: DESIRAE 09/16/18907 RPT#: [id number] DC DATE: STATUS: ADM IN [facility] [address] [place] [address] END OF REPORT
--- NOTE | 2018-09-16 14:11 | MORECARE ---
CASE MANAGEMENT DISCHARGE SUMMARY PATIENT: KELLY LUJAN UNIT: [id number] ADM DATE: 09/04/18 AGE: 68 : 50 SEX: F ROOM/BED: D.2237 AUTHOR: KEKE,DOC PHYSICIAN: REFERRING PHYSICIAN: VINICIUS INFANTE MD DATE OF SERVICE: 09/16/18 Discharge Plan Patient Name: KELLY LUJAN Facility: [facility]:[place] : 1950 Planned Disposition: Home with Home Health Anticipated Discharge Date: Discharge Date: Expected LOS: Initial Reviewer: [id number] Initial Review Date: 09/04/2018 Generated: 09/16/18 3:11 pm Comments DCP- Discharge Planning Updated by [id number]: Rossy Jimenez on 09/16/18 1:[address] Met with patient today to discuss infusion companies, ARIANNE signed for [facility]. I called [place], pharmacist with [facility] and she states for the Med Ball, Daptomycin 800mg daily unitl 10/01 and all supplies will be 150 dollars total. I informed the patient and she states she would like to use [employer] for her infusion company. I spoke with Angie at [facility] in [place] and updated clinical faxed. CM will continue to follow and assist with discharge planning/needs. DCP- Discharge Planning Updated by [id number]: Rossy Jimenez on 09/11/18 2:[address] Met with patient again today to discuss discharge planning. She still states she would like to go home with home health when she is discharged from here. I have ordered PT to evaluate safety of this. She states that she has an 18 year old grand daughter that can help her. I informed her that she will need someone who can assist with IV antibiotic administration. I informed her that home health typically only comes to the home 3 times a week and they would show her and a caregiver how to give the antibiotics. She states she will have someone available. I will meet with her again on Friday to assess her discharge needs. CM will continue to follow and assist with discharge planning/needs. DCP- Discharge Planning Updated by [email or web address]: Rossy Jimenez on 09/08/18 2:[address] Patient Name: KELLY LUJAN Admission Status: ER Accout number: [id number] Admission Date: 09-04-2018 : 1950 Admission Diagnosis:SEPSIS, UNSPECIFIED ORGANISM Attending: VINICIUS INFANTE Current LOS: 4 Anticipated DC Date: Planned Disposition: Home with Home Health Primary Insurance: MEDICARE A & B Discharge Planning Comments: CM met with patient to discuss discharge planning, she is alone in the room. She states that she lives with her , but her is in [facility] in [place]. She states that her son and daughter in law and grand daughter have been staying with her prior to her going back to the [facility]. She states that she has had [facility] and would like it resumed on discharge. I did discuss the availability of rehab, snf facilities and additional DME. She denies other needs besides the home health. She states she does have oxygen and portable oxygen that [facility] set up prior to her last discharge. She believes it came from DME supply in [place]. I called [facility] and they will resume on discharge. CM will continue to follow and assist with discharge planning/needs. Mill Labor Supervisor: Rossy Jimenez [facility] - Discharge Planning Initial Assessment Updated by [id number]: Rossy Jimenez on 09/08/18 2:59 pm * Is the patient Alert and Oriented? Yes * How many steps to enter\exit or inside your home? 0/0 * PCP Dr. Daley in [place] * Pharmacy [facility] in [place] * Preadmission Environment Home with Family * ADLs Independent * Equipment Other Oxygen Walker * Other Equipment Portable oxygen * List name and contact numbers for known caregivers / representatives who currently or will assist patient after discharge: Linden Lujan - [phone] * Verbal permission to speak to the caregivers and representatives has been obtained from the patient. Yes * Community resources currently utilized Home Health * Please name any agencies selected above. [facility] in [place] * Additional services required to return to the preadmission environment? No * Can the patient safely return to the preadmission environment? Yes * Has this patient been hospitalized within the prior 30 days at any hospital? Yes Coverage Notice Reviewer: [id number] - Rossy Jmienez Notice Issued Date-Time: 09/08/2018 15:04 Notice Type: Patient Choice Letter Notice Delivered To: Patient Relationship to Patient: Self Pct Name: Delivery Method: HAND - Hand Delivered Renetta Days: Prior Verbal Notification: Recipient Understood Notice: Yes Recipient Signature: Yes Med Rec Note Co-signed by Attending: Coverage Notice Comment: ARIANNE for [facility] in [place] Reviewer: [id number] Simran Jimenez Notice Issued Date-Time: 09/16/2018 14:08 Notice Type: Patient Choice Letter Notice Delivered To: Patient Relationship to Patient: Pct Name: Delivery Method: - Renetta Days: Prior Verbal Notification: Recipient Understood Notice: Recipient Signature: Med Rec Note Co-signed by Attending: Coverage Notice Comment: Last DP export: 09/16/18 8:08 am Patient Name: KELLY LUJAN Page [phone] at 1411 All edits/amendments must be made on the electronic document DICTATION DATE: 09/16/18 1410 LEAD CARE MANAGER: DESIRAE 09/16/18 1410 RPT#: [id number] DC DATE: STATUS: ADM IN [facility] [address] [place] [address] END OF REPORT
--- NOTE | 2018-09-16 14:20 | MORECARE ---
CASE MANAGEMENT DISCHARGE SUMMARY PATIENT: KELLY LUJAN UNIT: [id number] ADM DATE: 09/04/18 AGE: 68 : 50 SEX: F ROOM/BED: D.2237 AUTHOR: KEKE,DOC PHYSICIAN: REFERRING PHYSICIAN: VINICIUS INFANTE MD DATE OF SERVICE: 09/16/18 Discharge Plan Patient Name: KELLY LUJAN Facility: [facility]:[place] : 1950 Planned Disposition: Home with Home Health Anticipated Discharge Date: Discharge Date: Expected LOS: Initial Reviewer: [id number] Initial Review Date: 09/04/2018 Generated: 09/16/18 3:20 pm Comments DCP- Discharge Planning Updated by [email or web address]: Rossy Jimenez on 09/16/18 1:[address] Met with patient today to discuss infusion companies, ARIANNE signed for [facility]. I called [place], pharmacist with [facility] and she states for the Med Ball, Daptomycin 800mg daily unitl 10/01 and all supplies will be 150 dollars total. I informed the patient and she states she would like to use [facility] for her infusion company. I spoke with Angie at [facility] in [place] and updated clinical faxed. CM will continue to follow and assist with discharge planning/needs. DCP- Discharge Planning Updated by [id number]: Rossy Jimenez on 09/11/18 2:[address] Met with patient again today to discuss discharge planning. She still states she would like to go home with home health when she is discharged from here. I have ordered PT to evaluate safety of this. She states that she has an 18 year old grand daughter that can help her. I informed her that she will need someone who can assist with IV antibiotic administration. I informed her that home health typically only comes to the home 3 times a week and they would show her and a caregiver how to give the antibiotics. She states she will have someone available. I will meet with her again on Friday to assess her discharge needs. CM will continue to follow and assist with discharge planning/needs. DCP- Discharge Planning Updated by [id number]: Rossy Jimenez on 09/08/18 2:[address] Patient Name: KELLY LUJAN Admission Status: ER Accout number: [id number] Admission Date: 09-04-2018 : 1950 Admission Diagnosis:SEPSIS, UNSPECIFIED ORGANISM Attending: VINICIUS INFANTE Current LOS: 4 Anticipated DC Date: Planned Disposition: Home with Home Health Primary Insurance: MEDICARE A & B Discharge Planning Comments: CM met with patient to discuss discharge planning, she is alone in the room. She states that she lives with her , but her is in [facility] in [place]. She states that her son and daughter in law and grand daughter have been staying with her prior to her going back to the [facility]. She states that she has had [facility] and would like it resumed on discharge. I did discuss the availability of rehab, mcc facilities and additional DME. She denies other needs besides the home health. She states she does have oxygen and portable oxygen that [facility] set up prior to her last discharge. She believes it came from DME supply in [place]. I called [facility] and they will resume on discharge. CM will continue to follow and assist with discharge planning/needs. Baby Formula Mixer: Rossy Jimenez [facility] - Discharge Planning Initial Assessment Updated by [id number]: Rossy Jimenez on 09/08/18 2:59 pm * Is the patient Alert and Oriented? Yes * How many steps to enter\exit or inside your home? 0/0 * PCP Dr. Daley in [place] * Pharmacy [facility] in [place] * Preadmission Environment Home with Family * ADLs Independent * Equipment Other Oxygen Walker * Other Equipment Portable oxygen * List name and contact numbers for known caregivers / representatives who currently or will assist patient after discharge: Linden Lujan - [phone] * Verbal permission to speak to the caregivers and representatives has been obtained from the patient. Yes * Community resources currently utilized Home Health * Please name any agencies selected above. [facility] in [place] * Additional services required to return to the preadmission environment? No * Can the patient safely return to the preadmission environment? Yes * Has this patient been hospitalized within the prior 30 days at any hospital? Yes External Providers [facility] Next Contact Date: Service Request Date: Service Type: Resolution: Reviewer: Comments: Coverage Notice Reviewer: [id number] Simran Jimenez Notice Issued Date-Time: 09/08/2018 15:04 Notice Type: Patient Choice Letter Notice Delivered To: Patient Relationship to Patient: Self Pot Liner Name: Delivery Method: HAND - Hand Delivered Renetta Days: Prior Verbal Notification: Recipient Understood Notice: Yes Recipient Signature: Yes Med Rec Note Co-signed by Attending: Coverage Notice Comment: ARIANNE for [facility] in [place] Reviewer: [id number] Simran Jimenez Notice Issued Date-Time: 09/16/2018 14:08 Notice Type: Patient Choice Letter Notice Delivered To: Patient Relationship to Patient: Pot Liner Name: Delivery Method: HAND - Hand Delivered Renetta Days: Prior Verbal Notification: Recipient Understood Notice: Yes Recipient Signature: Yes Med Rec Note Co-signed by Attending: Coverage Notice Comment: ARIANNE for [place] Last DP export: 09/16/18 1:11 pm Patient Name: KELLY LUJAN Page [id number] at 1420 All edits/amendments must be made on the electronic document DICTATION DATE: 09/16/18 142 REFRIGERATOR ROOM CLERK: DESIRAE 09/16/18 1420 RPT#: [id number] DC DATE: STATUS: ADM IN [facility] [address] [place] [address] END OF REPORT
[2018-09-17 05:02] VITALS: BP 99/51
[2018-09-17 09:30] VITALS: BP 129/64
[2018-09-17 12:45] VITALS: BP 131/42
[2018-09-17 17:11] VITALS: BP 182/80
[2018-09-17 20:02] VITALS: BP 131/51
[2018-09-18] VITALS: BP 98/48
[2018-09-18 04:00] VITALS: BP 145/54
[2018-09-18 06:17] LABS: BASOPHILS 0.6 % (0-2); EOSINOPHILS 2.3 % (0-7); HEMATOCRIT 29.2 % (36.0-48.0); HEMOGLOBIN 9.4 g/dL (12-16); IMMATURE GRANULOCYTES 0.6 % (0-5); LYMPHOCYTES 36.7 % (15-50); MCH 31.6 pg (26.0-34.0); MCHC 32.2 g/dL (31.0-37.0); MCV 98.3 fL (80.0-100.0); MEAN PLATELET VOLUME 8.9 fL (7.4-10.4); MONOCYTES 9.7 % (2-11); NEUTROPHILS 50.1 % (40-80); PLATELET COUNT 259 10x3/uL (130-400); RBC 2.97 10x6/uL (4.00-5.40); RDW 13.8 % (11.5-14.5); WBC 5.2 10x3/uL (4.8-10.8)
[2018-09-18 06:39] LABS: ANION GAP 10.4 mmol/L (8-16); C-REACTIVE PROTEIN 1.8 mg/dL (0.0-0.9); CALCIUM 9.4 mg/dL (8.5-10.1); POTASSIUM - SERUM 4.3 mmol/L (3.5-5.1)
[2018-09-18 06:40] LABS: CARBON DIOXIDE 31.9 mmol/L (21.0-32.0)
[2018-09-18 08:40] VITALS: BP 136/74
[2018-09-18 08:50] LABS: ERYTHROCYTE SEDIMENTATION RATE 71 mm/hr (0-30)
[2018-09-18 13:16] VITALS: BP 149/83
--- NOTE | 2018-09-18 16:41 | TEE ---
PATIENT:KELLY DAS [facility] MEDICAL RECORD: [id number] LOCATION:D.MS [id number] AGE OF PATIENT: 68 ADMISSION DATE: 09/04/18 SEX: F REFERRING PHYSICIAN: INTERPRETING PHYSICIAN: NAE LI MD TRANSESOPHAGEAL ECHOCARDIOGRAM Date: 09/10/18 VIRGILIO CHARGE Y INDICATIONS: MRSA, ASSESS FOR VEGATATION PREMEDICATIONS: PATIENT'S RESPONSE PROCEDURE DOPPLER MEASUREMENTS: LVIT LA PA 120 RA LVOT 84 RVOT 100 Asc. Ao 132 AV Gradient Peak 7.0 AV Mean 4.4 AV Area 1.8 MV Gradient Peak 7.1 MV Mean 3.4 MV Area INTERPRETATION: Doppler: 2-D: COLOR FLOW DOPPLER NORMAL SALINE STUDY: MISCELLANOUS: DIAGNOSIS: PLAN: Glass Edger:1 Dr. [employer] Doctor: Jaquan GUAN COMMENTS: DATE OF SERVICE: 09/10/2018 PROCEDURE: Transesophageal echo. INDICATION: Evaluate for endocarditis. IV conscious sedation was performed per anesthesia. Continuous O2 saturation, heart rate, blood pressure monitoring all undertaken, all of which remains stable. TRANSESOPHAGEAL ECHOCARDIOGRAM REPORT [id number] KELLY DAS FINDINGS: 1. Left ventricular systolic function is normal. Overall ejection fraction estimated at 60%. 2. Left atrium, right atrium, and right ventricular chamber sizes are within normal limits. 3. Valvular structures have normal structure and motion. No evidence of vegetative endocarditis. 4. Doppler interrogation reveals no significant valvular insufficiency or stenosis. 5. No evidence of pericardial effusion or left ventricular thrombus. TRANSINT:[id number] Voice Confirmation ID: [id number] DOCUMENT ID: [id number] 1641 CC: [id number] DICTATION DATE: 09/10/18 1202 DIALYSIS CHIEF EQUIPMENT TECHNICIAN: 09/11/18 0128 ADM IN [facility] [address] [place] [address]
[2018-09-18 16:53] VITALS: BP 145/69
[2018-09-18 20:00] VITALS: BP 105/66
[2018-09-19] VITALS: BP 136/62
[2018-09-19 04:00] VITALS: BP 125/61
[2018-09-19 06:34] LABS: BASOPHILS 0.6 % (0-2); EOSINOPHILS 3.3 % (0-7); HEMATOCRIT 28.3 % (36.0-48.0); HEMOGLOBIN 9.2 g/dL (12-16); IMMATURE GRANULOCYTES 0.4 % (0-5); LYMPHOCYTES 33.4 % (15-50); MCH 31.6 pg (26.0-34.0); MCHC 32.5 g/dL (31.0-37.0); MCV 97.3 fL (80.0-100.0); MEAN PLATELET VOLUME 8.9 fL (7.4-10.4); MONOCYTES 14.5 % (2-11); NEUTROPHILS 47.8 % (40-80); PLATELET COUNT 238 10x3/uL (130-400); RBC 2.91 10x6/uL (4.00-5.40); WBC 5.5 10x3/uL (4.8-10.8)
[2018-09-19 07:02] LABS: ANION GAP 12.8 mmol/L (8-16); CALCIUM 9.4 mg/dL (8.5-10.1); CARBON DIOXIDE 28.6 mmol/L (21.0-32.0); CREATININE - SERUM 1.1 mg/dL (0.6-1.3); POTASSIUM - SERUM 4.4 mmol/L (3.5-5.1); VANCOMYCIN - TROUGH 22.3 ug/mL (10.0-20.0)
[2018-09-19 09:13] VITALS: BP 95/56
[2018-09-19 14:18] VITALS: BP 102/69
--- NOTE | 2018-09-19 14:31 | MORECARE ---
CASE MANAGEMENT DISCHARGE SUMMARY PATIENT: KELLY LUJAN UNIT: [id number] ADM DATE: 09/04/18 AGE: 68 : 50 SEX: F ROOM/BED: D.2237 AUTHOR: KEKE,DOC PHYSICIAN: REFERRING PHYSICIAN: VINICIUS INFANTE MD DATE OF SERVICE: 09/19/18 Discharge Plan Patient Name: KELLY LUJAN Facility: [facility]:[place] : 1950 Planned Disposition: Home with Home Health Anticipated Discharge Date: Discharge Date: Expected LOS: Initial Reviewer: [id number] Initial Review Date: 09/04/2018 Generated: 09/19/18 3:31 pm Comments DCP- Discharge Planning Updated by [id number]: Carmen Jones on 09/19/18 1:[address] CM RECEIVED MESSAGE THAT THE PATIENT WANTED TO SPEAK WITH A SORTING GRAPPLE OPERATOR. CM TO THE ROOM. THE PATIENT WANTED TO ADVISE THAT HER DAUGHTER WOULD BE AVAILABLE AT 1300 ON FRIDAY FOR TEACHING REGARDING IVAB THERAPY AT HOME. SHE ALSO HAD A QUESTION REGARDING COVERAGE BY MEDICARE OR MEDICAID FOR EYE EXAMS FOR MEDICARE PATIENTS. TC TO [employer]. SPOKE W/ MILAGROS AT 1435. SHE RAN PATIENT'S BENEFITS. NO COVERAGE UNDER MEDICAID. POSSIBLE COVERAGE UNDER MEDICARE. PATIENT TO CALL HER MD OFFICE AND SPEAK WITH THE SHASHANK TO DETERMINE COVERAGE. PATIENT WILL BE PROVIDED WITH HANDOUT PREPARED BY [employer]. NURSE WILL GIVE TO THE PATIENT. DCP- Discharge Planning Updated by [id number]: Rossy Jimenez on 09/16/18 1:[address] Met with patient today to discuss infusion companies, ARIANNE signed for [employer]. I called [place], pharmacist with [employer] and she states for the Med Ball, Daptomycin 800mg daily unitl 10/01 and all supplies will be 150 dollars total. I informed the patient and she states she would like to use [employer] for her infusion company. I spoke with Angie at [facility] in [place] and updated clinical faxed. CM will continue to follow and assist with discharge planning/needs. DCP- Discharge Planning Updated by [id number]: Rossy Jimenez on 09/11/18 2:[address] Met with patient again today to discuss discharge planning. She still states she would like to go home with home health when she is discharged from here. I have ordered PT to evaluate safety of this. She states that she has an 18 year old grand daughter that can help her. I informed her that she will need someone who can assist with IV antibiotic administration. I informed her that home health typically only comes to the home 3 times a week and they would show her and a caregiver how to give the antibiotics. She states she will have someone available. I will meet with her again on Friday to assess her discharge needs. CM will continue to follow and assist with discharge planning/needs. DCP- Discharge Planning Updated by [id number]: Rossy Tony on 09/08/18 2:[address] Patient Name: KELLY LUJAN Admission Status: ER Accout number: [id number] Admission Date: 09-04-2018 : 1950 Admission Diagnosis:SEPSIS, UNSPECIFIED ORGANISM Attending: VINICIUS INFANTE Current LOS: 4 Anticipated DC Date: Planned Disposition: Home with Home Health Primary Insurance: MEDICARE A & B Discharge Planning Comments: CM met with patient to discuss discharge planning, she is alone in the room. She states that she lives with her , but her is in [facility] [place] in [place]. She states that her son and daughter in law and grand daughter have been staying with her prior to her going back to the [facility]. She states that she has had [facility] and would like it resumed on discharge. I did discuss the availability of rehab, alf facilities and additional DME. She denies other needs besides the home health. She states she does have oxygen and portable oxygen that [facility] set up prior to her last discharge. She believes it came from DME supply in [place]. I called [facility] and they will resume on discharge. CM will continue to follow and assist with discharge planning/needs. Sample Checker: Rossy Tony DCPIA - Discharge Planning Initial Assessment Updated by [email or web address]: Rossy Tony on 09/08/18 2:59 pm * Is the patient Alert and Oriented? Yes * How many steps to enter\exit or inside your home? 0/0 * PCP Dr[facility] Daley in [place] * [facility] in [place] * Preadmission Environment Home with Family * ADLs Independent * Equipment Other Oxygen Walker * Other Equipment Portable oxygen * List name and contact numbers for known caregivers / representatives who currently or will assist patient after discharge: Linden Lujan - [phone] * Verbal permission to speak to the caregivers and representatives has been obtained from the patient. Yes * Community resources currently utilized Home Health * Please name any agencies selected above. [facility] in [place] * Additional services required to return to the preadmission environment? No * Can the patient safely return to the preadmission environment? Yes * Has this patient been hospitalized within the prior 30 days at any hospital? Yes Coverage Notice Reviewer: [id number] Jimenez Notice Issued Date-Time: 09/08/2018 15:04 Notice Type: Patient Choice Letter Notice Delivered To: Patient Relationship to Patient: Self Tobacco Drying Machine Operator Name: Delivery Method: HAND - Hand Delivered Renetta Days: Prior Verbal Notification: Recipient Understood Notice: Yes Recipient Signature: Yes Med Rec Note Co-signed by Attending: Coverage Notice Comment: ARIANNE for [facility] Reviewer: [id number] Jimenez Notice Issued Date-Time: 09/16/2018 14:08 Notice Type: Patient Choice Letter Notice Delivered To: Patient Relationship to Patient: Tobacco Drying Machine Operator Name: Delivery Method: HAND - Hand Delivered Renetta Days: Prior Verbal Notification: Recipient Understood Notice: Yes Recipient Signature: Yes Med Rec Note Co-signed by Attending: Coverage Notice Comment: ARIANNE for [place] Last DP export: 09/16/18 1:20 pm Patient Name: KELLY LUJAN Page [id number] at 1431 All edits/amendments must be made on the electronic document DICTATION DATE: 09/19/18 1431 ORTHOPEDICS NURSE: DESIRAE 09/19/18 1431 RPT#: [id number] DC DATE: STATUS: ADM IN [facility] [address] [place] [address] END OF REPORT
[2018-09-19 17:28] VITALS: BP 141/57
[2018-09-19 19:53] VITALS: BP 180/75
[2018-09-20] VITALS: BP 128/57
[2018-09-20 04:00] VITALS: BP 170/69
[2018-09-20 06:18] LABS: BASOPHILS 0.6 % (0-2); EOSINOPHILS 3.3 % (0-7); HEMATOCRIT 30.2 % (36.0-48.0); HEMOGLOBIN 9.7 g/dL (12-16); IMMATURE GRANULOCYTES 0.4 % (0-5); LYMPHOCYTES 33.3 % (15-50); MCH 31.2 pg (26.0-34.0); MCHC 32.1 g/dL (31.0-37.0); MCV 97.1 fL (80.0-100.0); NEUTROPHILS 52.4 % (40-80); PLATELET COUNT 226 10x3/uL (130-400); RBC 3.11 10x6/uL (4.00-5.40); RDW 13.9 % (11.5-14.5); WBC 4.9 10x3/uL (4.8-10.8)
[2018-09-20 06:24] LABS: ANION GAP 12.1 mmol/L (8-16); CALCIUM 9.5 mg/dL (8.5-10.1); CREATININE - SERUM 1.2 mg/dL (0.6-1.3); POTASSIUM - SERUM 4.1 mmol/L (3.5-5.1)
[2018-09-20 08:45] VITALS: BP 119/42
[2018-09-20 17:39] VITALS: BP 164/69
[2018-09-20 20:00] VITALS: BP 140/48
[2018-09-21] VITALS: BP 165/69
[2018-09-21 03:00] VITALS: BP 151/61
[2018-09-21 05:44] LABS: BASOPHILS 0.6 % (0-2); EOSINOPHILS 3.3 % (0-7); HEMATOCRIT 29.1 % (36.0-48.0); HEMOGLOBIN 9.3 g/dL (12-16); IMMATURE GRANULOCYTES 0.2 % (0-5); LYMPHOCYTES 31.8 % (15-50); MCH 31.2 pg (26.0-34.0); MCV 97.7 fL (80.0-100.0); MEAN PLATELET VOLUME 8.8 fL (7.4-10.4); MONOCYTES 12.5 % (2-11); NEUTROPHILS 51.6 % (40-80); PLATELET COUNT 213 10x3/uL (130-400); RBC 2.98 10x6/uL (4.00-5.40); RDW 13.9 % (11.5-14.5); WBC 4.9 10x3/uL (4.8-10.8)
[2018-09-21 05:56] LABS: ANION GAP 10.8 mmol/L (8-16); CARBON DIOXIDE 30.3 mmol/L (21.0-32.0); CREATININE - SERUM 1.3 mg/dL (0.6-1.3); POTASSIUM - SERUM 4.1 mmol/L (3.5-5.1)
[2018-09-21 09:10] VITALS: BP 155/79
[2018-09-21] MEDS ORDERED: BENADRYL 2% CRE30 GM TOPICAL (10:28)
[2018-09-21] MEDS ORDERED: SYNTHROID125 MCG PO (10:28)
[2018-09-21] MEDS ORDERED: HYDROCORTISONE30 G9 TOPICAL (10:28)
--- NOTE | 2018-09-21 11:14 | MORECARE ---
CASE MANAGEMENT DISCHARGE SUMMARY PATIENT: KELLY LUJAN UNIT: [id number] ADM DATE: 09/04/18 AGE: 68 : 50 SEX: F ROOM/BED: D.2237 AUTHOR: KEKE,DOC PHYSICIAN: REFERRING PHYSICIAN: VINICIUS INFANTE MD DATE OF SERVICE: 09/21/18 Discharge Plan Patient Name: KELLY LUJAN Facility: [facility]:[place] : 1950 Planned Disposition: Home with Home Health Anticipated Discharge Date: Discharge Date: Expected LOS: Initial Reviewer: [email or web address] Initial Review Date: 09/04/2018 Generated: 09/21/18 12:14 pm Comments DCP- Discharge Planning Updated by [email or web address]: Rossy Jimenez on 09/21/18 10:[address] Received discharge orders. I called [facility], they will be here at 13:00 for instruction and delivery of Daptomycin. I called and spoke to Angie at [facility] in [place], they will see her tomorrow for her 2nd dose of Daptomycin. States her daughter will be here at 1300 to be involved in the teaching. CM will continue to follow and assist with discharge planning/needs. DCP- Discharge Planning Updated by [id number]: Carmen Jones on 09/19/18 1:[address] CM RECEIVED MESSAGE THAT THE PATIENT WANTED TO SPEAK WITH A PURCHASING SUPERVISOR. CM TO THE ROOM. THE PATIENT WANTED TO ADVISE THAT HER DAUGHTER WOULD BE AVAILABLE AT 1300 ON FRIDAY FOR TEACHING REGARDING IVAB THERAPY AT HOME. SHE ALSO HAD A QUESTION REGARDING COVERAGE BY MEDICARE OR MEDICAID FOR EYE EXAMS FOR MEDICARE PATIENTS. TC TO [employer]. SPOKE W/ MILAGROS AT 1435. SHE RAN PATIENT'S BENEFITS. NO COVERAGE UNDER MEDICAID. POSSIBLE COVERAGE UNDER MEDICARE. PATIENT TO CALL HER MD OFFICE AND SPEAK WITH THE SHASHANK TO DETERMINE COVERAGE. PATIENT WILL BE PROVIDED WITH HANDOUT PREPARED BY [employer]. NURSE WILL GIVE TO THE PATIENT. DCP- Discharge Planning Updated by [email or web address]: Rossy Jimenez on 09/16/18 1:[address] Met with patient today to discuss infusion companies, ARIANNE signed for [facility]. I called [place], pharmacist with [facility] and she states for the Med Ball, Daptomycin 800mg daily unitl 05/23 and all supplies will be 150 dollars total. I informed the patient and she states she would like to use [employer] for her infusion company. I spoke with Angie at [facility] in [place] and updated clinical faxed. CM will continue to follow and assist with discharge planning/needs. DCP- Discharge Planning Updated by [email or web address]: Rossy Jimenez on 09/11/18 2:[address] Met with patient again today to discuss discharge planning. She still states she would like to go home with home health when she is discharged from here. I have ordered PT to evaluate safety of this. She states that she has an 18 year old grand daughter that can help her. I informed her that she will need someone who can assist with IV antibiotic administration. I informed her that home health typically only comes to the home 3 times a week and they would show her and a caregiver how to give the antibiotics. She states she will have someone available. I will meet with her again on Friday to assess her discharge needs. CM will continue to follow and assist with discharge planning/needs. DCP- Discharge Planning Updated by [id number]: Rossy Jimenez on 09/08/18 2:[address] Patient Name: KELLY LUJAN Admission Status: ER Accout number: [id number] Admission Date: 09-04-2018 : 1950 Admission Diagnosis:SEPSIS, UNSPECIFIED ORGANISM Attending: VINICIUS INFANTE Current LOS: 4 Anticipated DC Date: Planned Disposition: Home with Home Health Primary Insurance: MEDICARE A & B Discharge Planning Comments: CM met with patient to discuss discharge planning, she is alone in the room. She states that she lives with her , but her is in [facility] in [place]. She states that her son and daughter in law and grand daughter have been staying with her prior to her going back to the [facility]. She states that she has had [facility] and would like it resumed on discharge. I did discuss the availability of rehab, custodial facilities and additional DME. She denies other needs besides the home health. She states she does have oxygen and portable oxygen that [facility] set up prior to her last discharge. She believes it came from DME supply in [place]. I called [facility] and they will resume on discharge. CM will continue to follow and assist with discharge planning/needs. Lavatory Attendant: Rossy Jimenez [facility] - [facility]charge Planning Initial Assessment Updated by [id number]: Rossy Jimenez on 09/08/18 2:59 pm * Is the patient Alert and Oriented? Yes * How many steps to enter\exit or inside your home? 0/0 * PCP Dr. Daley in [place] * [facility] in [place] * Preadmission Environment Home with Family * ADLs Independent * Equipment Other Oxygen Walker * Other Equipment Portable oxygen * List name and contact numbers for known caregivers / representatives who currently or will assist patient after discharge: Linden Lujan - [phone] * Verbal permission to speak to the caregivers and representatives has been obtained from the patient. Yes * Community resources currently utilized Home Health * Please name any agencies selected above. [facility] in [place] * Additional services required to return to the preadmission environment? No * Can the patient safely return to the preadmission environment? Yes * Has this patient been hospitalized within the prior 30 days at any hospital? Yes Coverage Notice Reviewer: [id number] Simran Jimenez Notice Issued Date-Time: 09/08/2018 15:04 Notice Type: Patient Choice Letter Notice Delivered To: Patient Relationship to Patient: Self Small Business Banking Officer Name: Delivery Method: HAND - Hand Delivered Renetta Days: Prior Verbal Notification: Recipient Understood Notice: Yes Recipient Signature: Yes Med Rec Note Co-signed by Attending: Coverage Notice Comment: ARIANNE for [facility] [place] Reviewer: [id number] Simran Jimenez Notice Issued Date-Time: 09/16/2018 14:08 Notice Type: Patient Choice Letter Notice Delivered To: Patient Relationship to Patient: Small Business Banking Officer Name: Delivery Method: HAND - Hand Delivered Renetta Days: Prior Verbal Notification: Recipient Understood Notice: Yes Recipient Signature: Yes Med Rec Note Co-signed by Attending: Coverage Notice Comment: ARIANNE for [place] Reviewer: [id number] Simran Jimenez Notice Issued Date-Time: 09/21/2018 11:10 Notice Type: IM Discharge Notice Notice Delivered To: Patient Relationship to Patient: Self Small Business Banking Officer Name: Delivery Method: HAND - Hand Delivered Renetta Days: Prior Verbal Notification: Recipient Understood Notice: Yes Recipient Signature: Yes Med Rec Note Co-signed by Attending: Coverage Notice Comment: IMM explained, signed, given, copy placed in MR Last DP export: 09/19/18 1:31 p Patient Name: KELLY LUJAN Page [id number] at 1114 All edits/amendments must be made on the electronic document DICTATION DATE: 09/21/181113 FIRE CODE INSPECTOR: DESIRAE 09/21/181113 RPT#: [id number] DC DATE: STATUS: ADM IN [facility] [address] [place] [address] END OF REPORT
--- NOTE | 2018-09-22 10:09 | MORECARE ---
CASE MANAGEMENT DISCHARGE SUMMARY PATIENT: KELLY LUJAN UNIT: [id number] ADM DATE: 09/04/18 AGE: 68 : 50 SEX: F ROOM/BED: D.2237 AUTHOR: KEKE,DOC PHYSICIAN: REFERRING PHYSICIAN: VINICIUS INFANTE MD DATE OF SERVICE: 09/22/18 Discharge Plan Patient Name: KELLY LUJAN Facility: [facility]:[place] : 1950 Planned Disposition: Home with Home Health Anticipated Discharge Date: Discharge Date: 09/21/2018 Expected LOS: 0 Initial Reviewer: [email or web address] Initial Review Date: 09/04/2018 Generated: 09/22/18 11:09 am Comments DCP- Discharge Planning Updated by [id number]: Rossy Jimenez on 09/21/18 10:[address] Received discharge orders. I called [facility], they will be here at 13:00 for instruction and delivery of Daptomycin. I called and spoke to Angie at [facility] in [place], they will see her tomorrow for her 2nd dose of Daptomycin. States her daughter will be here at 1300 to be involved in the teaching. CM will continue to follow and assist with discharge planning/needs. DCP- Discharge Planning Updated by [id number]: Carmen Jones on 09/19/18 1:[address] CM RECEIVED MESSAGE THAT THE PATIENT WANTED TO SPEAK WITH A MANUFACTURING CONTROLS ENGINEER. CM TO THE ROOM. THE PATIENT WANTED TO ADVISE THAT HER DAUGHTER WOULD BE AVAILABLE AT 1300 ON FRIDAY FOR TEACHING REGARDING IVAB THERAPY AT HOME. SHE ALSO HAD A QUESTION REGARDING COVERAGE BY MEDICARE OR MEDICAID FOR EYE EXAMS FOR MEDICARE PATIENTS. TC TO [employer]. SPOKE W/ MILAGROS AT 1435. SHE RAN PATIENT'S BENEFITS. NO COVERAGE UNDER MEDICAID. POSSIBLE COVERAGE UNDER MEDICARE. PATIENT TO CALL HER MD OFFICE AND SPEAK WITH THE POST FORM REMOVER TO DETERMINE COVERAGE. PATIENT WILL BE PROVIDED WITH HANDOUT PREPARED BY [employer]. NURSE WILL GIVE TO THE PATIENT. DCP- Discharge Planning Updated by [id number]: Rossy Jimenez on 09/16/18 1:[address] Met with patient today to discuss infusion companies, ARIANNE signed for [facility]. I called [place], pharmacist with [facility] and she states for the Med Ball, Daptomycin 800mg daily unitl 10/01 and all supplies will be 150 dollars total. I informed the patient and she states she would like to use [employer] for her infusion company. I spoke with Angie at [facility] in [place] and updated clinical faxed. CM will continue to follow and assist with discharge planning/needs. DCP- Discharge Planning Updated by [email or web address]: Rossy Jimenez on 09/11/18 2:[address] Met with patient again today to discuss discharge planning. She still states she would like to go home with home health when she is discharged from here. I have ordered PT to evaluate safety of this. She states that she has an 18 year old grand daughter that can help her. I informed her that she will need someone who can assist with IV antibiotic administration. I informed her that home health typically only comes to the home 3 times a week and they would show her and a caregiver how to give the antibiotics. She states she will have someone available. I will meet with her again on Friday to assess her discharge needs. CM will continue to follow and assist with discharge planning/needs. DCP- Discharge Planning Updated by [id number]: Rossy Jimenez on 09/08/18 2:[address] Patient Name: KELLY LUJAN Admission Status: ER Accout number: [id number] Admission Date: 09-04-2018 : 1950 Admission Diagnosis:SEPSIS, UNSPECIFIED ORGANISM Attending: VINICIUS INFANTE Current LOS: 4 Anticipated DC Date: Planned Disposition: Home with Home Health Primary Insurance: MEDICARE A & B Discharge Planning Comments: CM met with patient to discuss discharge planning, she is alone in the room. She states that she lives with her , but her is in [facility] in [place]. She states that her son and daughter in law and grand daughter have been staying with her prior to her going back to the [facility]. She states that she has had [facility] and would like it resumed on discharge. I did discuss the availability of rehab, half-way facilities and additional DME. She denies other needs besides the home health. She states she does have oxygen and portable oxygen that [facility] set up prior to her last discharge. She believes it came from DME supply in [place]. I called [facility] and they will resume on discharge. CM will continue to follow and assist with discharge planning/needs. Skin Care Consultant: Rossy Jimenez [facility] - Discharge Planning Initial Assessment Updated by [id number]: Rossy Jimenez on 09/08/18 2:59 pm * Is the patient Alert and Oriented? Yes * How many steps to enter\exit or inside your home? 0/0 * PCP Dr[facility] Daley in [place] * [facility] in [place] * Preadmission Environment Home with Family * ADLs Independent * Equipment Other Oxygen Walker * Other Equipment Portable oxygen * List name and contact numbers for known caregivers / representatives who currently or will assist patient after discharge: Linden Lujan - [phone] * Verbal permission to speak to the caregivers and representatives has been obtained from the patient. Yes * Community resources currently utilized Home Health * Please name any agencies selected above. [facility] in [place] * Additional services required to return to the preadmission environment? No * Can the patient safely return to the preadmission environment? Yes * Has this patient been hospitalized within the prior 30 days at any hospital? Yes Coverage Notice Reviewer: [id number] Simran Jimenez Notice Issued Date-Time: 09/08/2018 15:04 Notice Type: Patient Choice Letter Notice Delivered To: Patient Relationship to Patient: Self Equipment Sterilizer Name: Delivery Method: HAND - Hand Delivered Renetta Days: Prior Verbal Notification: Recipient Understood Notice: Yes Recipient Signature: Yes Med Rec Note Co-signed by Attending: Coverage Notice Comment: ARIANNE for [facility] [place] Reviewer: [id number] Simran Jimenez Notice Issued Date-Time: 09/16/2018 14:08 Notice Type: Patient Choice Letter Notice Delivered To: Patient Relationship to Patient: Equipment Sterilizer Name: Delivery Method: HAND - Hand Delivered Renetta Days: Prior Verbal Notification: Recipient Understood Notice: Yes Recipient Signature: Yes Med Rec Note Co-signed by Attending: Coverage Notice Comment: ARIANNE for [place] Reviewer: [id number] Simran Jimenez Notice Issued Date-Time: 09/21/2018 11:10 Notice Type: IM Discharge Notice Notice Delivered To: Patient Relationship to Patient: Self Equipment Sterilizer Name: Delivery Method: HAND - Hand Delivered Renetta Days: Prior Verbal Notification: Recipient Understood Notice: Yes Recipient Signature: Yes Med Rec Note Co-signed by Attending: Coverage Notice Comment: IMM explained, signed, given, copy placed in MR Last DP export: 09/21/18 10:14 a Patient Name: KELLY LUJAN Page 12160 at 1009 All edits/amendments must be made on the electronic document DICTATION DATE: 09/22/18 1009 UPHOLSTERY AUTO TRIMMER: DESIRAE 09/22/18 1009 RPT#: [id number] DC DATE:09/21/18 STATUS: DIS IN [facility] [address] [place] [address] END OF REPORT
== END 2018-09-21 14:56 | disposition home health service (06) | DRG 871 ==
LOC: D.ER 01:01 → D.EDHOLD 02:44 → D.MS 02:44
PROVIDERS: Emergency Medicine; Family Medicine; Radiology Diagnostic Radiology; Student in an Organized Health Care Education/Training Program; ADMIT Internal Medicine Nephrology; ATTEND Internal Medicine Nephrology
PROC: 0W9G30Z Drainage of Peritoneal Cavity with Drainage Device, Percutaneous Approach (ICD-10-PCS; principal; 2018-09-11 10:15)
PROC: 0W2GX0Z Change Drainage Device in Peritoneal Cavity, External Approach (ICD-10-PCS; 2018-09-16)
DX: A41.9 Sepsis, unspecified organism (principal); J18.9 Pneumonia, unspecified organism; J96.01 Acute respiratory failure with hypoxia; N17.9 Acute kidney failure, unspecified; Z68.41 Body mass index [BMI] 40.0-44.9, adult; D64.9 Anemia, unspecified; E87.5 Hyperkalemia; I25.10 Atherosclerotic heart disease of native coronary artery without angina pectoris; E11.9 Type 2 diabetes mellitus without complications; I10 Essential (primary) hypertension; J44.9 Chronic obstructive pulmonary disease, unspecified; E66.01 Morbid (severe) obesity due to excess calories; E83.42 Hypomagnesemia

== ENCOUNTER → 2018-10-02 11:30 | Outpatient (CLI) | payer MEDICARE ==
[2018-09-09 15:58] VITALS: BMI 42.0
[~2018-10-02 11:30] MED LIST changes: +BASAGLAR K100 UNIT/1 SC; +BENADRYL 2% CRE30 GM TOPICAL; +HYDROCORTISONE30 G9 TOPICAL; +NOVOLOG100 UNIT/1 SC; +SYNTHROID125 MCG PO
== END | disposition home or self-care (01) ==
LOC: D.CT 09:30
PROVIDERS: ATTEND Student in an Organized Health Care Education/Training Program
DX: M62.838 Other muscle spasm (principal)

== ENCOUNTER 2018-10-08 22:21 | Inpatient (IN) | payer MEDICARE ==
[2018-10-08 22:54] LABS: BASOPHILS 0.7 % (0-2); EOSINOPHILS 5.8 % (0-7); HEMATOCRIT 32.2 % (36.0-48.0); HEMOGLOBIN 10.7 g/dL (12-16); IMMATURE GRANULOCYTES 0.4 % (0-5); LYMPHOCYTES 40.1 % (15-50); MCH 32.1 pg (26.0-34.0); MCHC 33.2 g/dL (31.0-37.0); MCV 96.7 fL (80.0-100.0); MEAN PLATELET VOLUME 9.3 fL (7.4-10.4); MONOCYTES 10.2 % (2-11); NEUTROPHILS 42.8 % (40-80); PLATELET COUNT 252 10x3/uL (130-400); RBC 3.33 10x6/uL (4.00-5.40); WBC 6.9 10x3/uL (4.8-10.8)
[2018-10-08 22:55] LABS: APPEARANCE CLEAR (CLEAR); BILIRUBIN NEGATIVE (NEGATIVE); COLOR YELLOW (YELLOW); GLUCOSE NEGATIVE (NEGATIVE); KETONE NEGATIVE (NEGATIVE); NITRITE NEGATIVE (NEGATIVE); PROTEIN NEGATIVE (NEGATIVE); UROBILINOGEN NORMAL (NORMAL)
[2018-10-08 22:58] LABS: BACTERIA FEW /hpf (NONE SEEN); EPITHELIAL CELLS 0-5 /hpf (0-5); RED CELLS - URINE 0-5 /hpf (0-5); YEAST RARE /hpf (NONE SEEN)
[2018-10-08 23:05] LABS: ALBUMIN 3.9 g/dL (3.4-5.0); BILIRUBIN - TOTAL 0.21 mg/dL (0.2-1.3); CALCIUM 10.2 mg/dL (8.5-10.1); CARBON DIOXIDE 22.7 mmol/L (21.0-32.0); CREATININE - SERUM 3.9 mg/dL (0.6-1.3); POTASSIUM - SERUM 5.7 mmol/L (3.5-5.1); PROTEIN - SERUM 7.8 g/dL (6.4-8.2)
[2018-10-09 00:22] LABS: MAGNESIUM - SERUM 1.8 mg/dL (1.8-2.4); PHOSPHOROUS 5.3 mg/dL (2.5-4.9); THYROID STIMULATING HORMONE 1.46 uIU/mL (0.36-3.74)
[2018-10-09] MEDS ORDERED: BENICAR5 MG (02:20)
[2018-10-09 02:30] VITALS: BP 120/56; BMI 40.4
[2018-10-09 04:00] VITALS: BP 104/50
--- NOTE | 2018-10-09 07:41 | NUR ---
REPORT RECEIVED. WILL CONTINUE WITH POC. PT CURRENTLY LYING SEMI FOWLERS. CALL LIGHT W/I REACH. PT IS AAO AND UP AD ERWIN. RR EVEN AND UNLABORED ON RA. NS INFUSING @100ML/HR VIA R.FOR PIV. NO S/S OF DISTRESS NOTED. PT DENIES ANY NEEDS AT THIS TIME. WILL CTM.
[2018-10-09 08:12] VITALS: BP 104/40
[2018-10-09 10:17] LABS: ANION GAP 16.7 mmol/L (8-16); CALCIUM 9.5 mg/dL (8.5-10.1); CREATININE - SERUM 3.4 mg/dL (0.6-1.3); POTASSIUM - SERUM 5.7 mmol/L (3.5-5.1)
[2018-10-09 12:12] VITALS: BP 128/56
[2018-10-09 12:41] VITALS: BMI 40.3
[2018-10-09 12:46] LABS: COMPLEMENT C4 32.4 mg/dL (17.4-52.2)
[2018-10-09 13:51] LABS: ERYTHROCYTE SEDIMENTATION RATE 31 mm/hr (0-30)
--- NOTE | 2018-10-09 15:55 | NUR ---
I have reviewed this patient and I concur with the Shift Assessment completed by the Licensed Practical Nurse today this shift.
[2018-10-09 16:30] VITALS: BP 147/44
[2018-10-09 19:01] LABS: ANION GAP 11.8 mmol/L (8-16); CALCIUM 9.7 mg/dL (8.5-10.1); CARBON DIOXIDE 25.5 mmol/L (21.0-32.0); CREATININE - SERUM 3.1 mg/dL (0.6-1.3); POTASSIUM - SERUM 5.3 mmol/L (3.5-5.1)
--- NOTE | 2018-10-09 19:20 | NUR ---
EVENING ROUNDS MADE. PT LAYING IN BED RESTING. PT CONCERNED THAT NON OF HER HOME MEDICATIONS HAVE BEEN RESTARTED. PT STATED TAHT LAST NIGHT UPON ARRIVAL THE NURSE DID NOT GO OVER ALL HER HOME MEDICATIONS. PT ASKED WHY THE DOCTOR DID NOT START HER HOME MEDICATIONS WHY THEY WERE HERE TODAY MAKING ROUNDS. PT ALSO CONCERNED TO WHY HER BS IS NOT BEING CHECKED AND SHE IS A DIABETIC. INFORMED PT THAT I HAVE JUST ARRIVED FOR MY SHIFT AND I WOULD READ HER CHART AND SEE WHAT I COULD FIGURE OUT. I APOLOGIZED FOR THE CONFUSION. NO FURTHER CONCERNS AT THIS TIME. FALL PRECAUTIONS IN PLACE. BED LOWERED AND LOCKED. CL IN REACH. WILL CTM.
[2018-10-09 20:00] VITALS: BP 114/55
--- NOTE | 2018-10-09 20:14 | NUR ---
DR. HERRERA CALLED AND INFORMED OF PT K+ OF 5.3, STATED THAT IT WAS OKAY DUE TO PT GETTING NS AND LASIX, ALSO INFORMED THAT PT WAS DIABETIC AND HAD NOT BEEN CHECKED FOR BS, ORDERS GIVEN FOR FSBS ACHS AND HUMULIN REGULAR INSULIN LOW SLIDING SCALE. ORDERS ALSO GIVEN FOR 75 MG PLAVIX QHS, AND SYNTHROID 125 MCG 0600 DAILY, NO FURTHER CONCERNS AT THIS TIME. WILL CTM.
--- NOTE | 2018-10-09 20:47 | NUR ---
PT BS 246, 4 UNITS OF HUMULIN R GIVEN. SEE EMAR.
--- NOTE | 2018-10-09 20:48 | NUR ---
VITALS STABLE. PT TOOK MEDS WITHOUT DIFFICULTY. PT AGGITATED THAT SHE ONLY GOT 4 UNITS OF INSULIN FOR HER BS OF 246, STATED THAT AT HOME SHE WOULD HAVE TAKEN AT LEAST 12 UNITS. INFORMED PT THAT SHE WOULD GET THE 4 UNITS AND WAIT UNTIL THE DOCTOR MADE ROUNDS IN THE MORNING AND HE WOULD ASSESS IF SHE NEEDED A HIGHER SLIDING SCALE. PT STATED "I AM SICK OF BEING THROWN AROUND IN THE HOSPTIAL LIKE THIS" DENIES FURTHER NEEDS AT THIS TIME. WILL CTM.
[2018-10-10] VITALS (7 sets, daily range): BP systolic 109–123; BP diastolic 39–63
--- NOTE | 2018-10-10 03:23 | NUR ---
I have reviewed this patient and I concur with the Shift Assessment completed by the Licensed Practical Nurse today this shift.
[2018-10-10 03:37] LABS: BASOPHILS 0.6 % (0-2); EOSINOPHILS 5.7 % (0-7); HEMATOCRIT 30.8 % (36.0-48.0); HEMOGLOBIN 10.2 g/dL (12-16); IMMATURE GRANULOCYTES 0.3 % (0-5); LYMPHOCYTES 44.5 % (15-50); MCH 31.7 pg (26.0-34.0); MCHC 33.1 g/dL (31.0-37.0); MCV 95.7 fL (80.0-100.0); MEAN PLATELET VOLUME 9.3 fL (7.4-10.4); MONOCYTES 9.6 % (2-11); NEUTROPHILS 39.3 % (40-80); PLATELET COUNT 232 10x3/uL (130-400); RBC 3.22 10x6/uL (4.00-5.40); RDW 13.8 % (11.5-14.5); WBC 6.2 10x3/uL (4.8-10.8)
[2018-10-10 03:50] LABS: ANION GAP 15.9 mmol/L (8-16); CALCIUM 9.4 mg/dL (8.5-10.1); CARBON DIOXIDE 25.4 mmol/L (21.0-32.0); CREATININE - SERUM 3.2 mg/dL (0.6-1.3); POTASSIUM - SERUM 5.3 mmol/L (3.5-5.1)
--- NOTE | 2018-10-10 05:10 | NUR ---
PT LAYING IN BED RESTING COMFORTABLY. DENIES PAIN AT THIS TIME. BREATHING SHALLOW, DSYNEA NOTED UPON EXERTION. NO FURTHER COMPLAINTS FROM PT AT THIS TIME. FALL PRECAUTIONS IN PLACE. BED LOWERED AND LOCKED. CL IN REACH. WILL CTM.
--- NOTE | 2018-10-10 07:27 | NUR ---
PT IS AWAKE AND ORIENTED. LYINGIN BED, S/S OF ACUTE DISTRESS NOTED, PT STATES NO COMPLAINTS/CONCERN AT THIS TIME. CL IN REACH, SRX2.
--- NOTE | 2018-10-10 12:49 | NUR ---
I have reviewed this patient and I concur with the Shift Assessment completed by the Licensed Practical Nurse today this shift
--- NOTE | 2018-10-10 18:34 | NUR ---
PT IS AWAKE AND ORIENTED WATCHING TV. STATES SHE IS HAPPY THAT HER MEDICATIONS ARE ALL NOW CORRECT BUT SHE IS CONCERNED ABOUT HER BLOOD SUGARS BEING HIGH. EXPLAINED TO PT THAT NOW THAT ALL HER INSULINS ARE CORRECT WE WILL SEE (HOPEFULLY) A GRADUAL DECLINE BACK INTER NORMAL RANGE OF BLOOD SUGARS. NO OTHER COMPLAINTS/CONCERNS VOICED AT THIS TIME. CL IN REACH, SRX2.
[2018-10-10 19:01] LABS: ANION GAP 13.5 mmol/L (8-16); CALCIUM 9.5 mg/dL (8.5-10.1); CARBON DIOXIDE 26.1 mmol/L (21.0-32.0); CREATININE - SERUM 3.5 mg/dL (0.6-1.3); POTASSIUM - SERUM 4.6 mmol/L (3.5-5.1)
--- NOTE | 2018-10-10 22:10 | NUR ---
PT ALERT AND ORIENTED X4. 20G IV INFILTRATED. SOME SWELLING NOTED. WARM COMPRESS APPLIED. 20G IV DC'D WITH CATHETER TIP IN PLACE. PT REQUESTED A SANDWICH FOR SNACK. BROUGHT PT TURKEY SANDWICH. PT DENIES ANY PAIN OR FURTHER NEEDS AT THIS TIME. BED LOW, CALL LIGHT WITHIN REACH, WILL CONTINUE TO MONITOR.
--- NOTE | 2018-10-11 03:36 | NUR ---
I have reviewed this patient and I concur with the Shift Assessment completed by the Licensed Practical Nurse today this shift.
[2018-10-11 03:43] VITALS: BP 98/40
--- NOTE | 2018-10-11 06:40 | NUR ---
X3 IV STICK ATTEMPT. NO ACCESS. BED LOW CALL LIGHT WITHIN REACH. WILL CONTINUE TO MONITOR.
[2018-10-11 07:06] LABS: BASOPHILS 0.6 % (0-2); EOSINOPHILS 3.8 % (0-7); HEMATOCRIT 31.3 % (36.0-48.0); HEMOGLOBIN 10.4 g/dL (12-16); IMMATURE GRANULOCYTES 0.3 % (0-5); LYMPHOCYTES 43.8 % (15-50); MCH 31.8 pg (26.0-34.0); MCHC 33.2 g/dL (31.0-37.0); MCV 95.7 fL (80.0-100.0); MEAN PLATELET VOLUME 9.2 fL (7.4-10.4); MONOCYTES 8.3 % (2-11); NEUTROPHILS 43.2 % (40-80); PLATELET COUNT 222 10x3/uL (130-400); RBC 3.27 10x6/uL (4.00-5.40); RDW 13.6 % (11.5-14.5); WBC 6.6 10x3/uL (4.8-10.8)
[2018-10-11 07:14] LABS: ANION GAP 17.6 mmol/L (8-16); CALCIUM 9.4 mg/dL (8.5-10.1); CARBON DIOXIDE 24.4 mmol/L (21.0-32.0); CREATININE - SERUM 3.4 mg/dL (0.6-1.3)
[2018-10-11 08:28] VITALS: BP 95/49
[2018-10-11 11:18] VITALS: BP 106/58
--- NOTE | 2018-10-11 11:38 | NUR ---
ALERT AND ORIENTED X4. REFUSE TO SITE EJ. NOTIFY AARON OLSON. PATIENT STATES, "I JUST WANT TO WAIT FOR [facility] TO START PICC TOMORROW. " DENIES ANY NEEDS AT THIS TIME. CONTINUE PLAN OF CARE AND SAFETY PRECAUTIONS.
[2018-10-11 15:45] VITALS: BP 102/52
--- NOTE | 2018-10-11 15:49 | MORECARE ---
CASE MANAGEMENT DISCHARGE SUMMARY PATIENT: KELLY DAS UNIT: [id number] ADM DATE: 10/09/18 AGE: 68 : 50 SEX: F ROOM/BED: D.5807 AUTHOR: TAMMY DAVIES PHYSICIAN: REFERRING PHYSICIAN: DAVEY ANN MD DATE OF SERVICE: 10/11/18 Discharge Plan Patient Name: KELLY DAS Facility: [facility]:[place] : 1950 Planned Disposition: Home Anticipated Discharge Date: Discharge Date: Expected LOS: Initial Reviewer: [id number] Initial Review Date: 10/11/2018 Generated: 10/11/18 4:49 pm Comments DCP- Discharge Planning Updated by [email or web address]: Pat Joya on 10/11/18 2:[address] Patient Name: KELLY DAS Admission Status: ER Accout number: [id number] Admission Date: 10-09-2018 : 1950 Admission Diagnosis:HYPERKALEMIA Attending: DAVEY ANN Current LOS: 2 Anticipated DC Date: Planned Disposition: Primary Insurance: MEDICARE A & B Discharge Planning Comments: PT WAS RECENTLY SENT HOME ON IV ABX TX. SHE STATES SHE WAS OFF THE ABX WHEN SHE CAME IN THIS TIME. SHE USES [facility]. SHE WOUJLD LIKE TO CONTINUE WITH THEM AT [place] IF NEEDED. HER IS CURRENTLY IN THE HOSPITAL IN [place] AND SHE IS WANTING TO GET OUT OF HOSPITAL SOON POSSIBLE. Pressed Or Blown Glass Worker: Pat Joya DCPIA - Discharge Planning Initial Assessment Updated by [id number]: Pat Joya on 10/11/18 3:47 pm * Is the patient Alert and Oriented? Yes * PCP DAE GUAJARDO * Pharmacy [facility] * Preadmission Environment Home with Family * ADLs Independent * Verbal permission to speak to the caregivers and representatives has been obtained from the patient. N/A * Additional services required to return to the preadmission environment? No * Can the patient safely return to the preadmission environment? Yes * Has this patient been hospitalized within the prior 30 days at any hospital? Yes Patient Name: KELLY DAS Page [phone] at 1549 All edits/amendments must be made on the electronic document DICTATION DATE: 10/11/18 1548 DECALER: DESIRAE 10/11/18 1548 RPT#: [id number] DC DATE: STATUS: ADM IN [facility] [address] [place] [address] END OF REPORT
--- NOTE | 2018-10-11 17:00 | NUR ---
ALERT AND ORIENTED X4. IV SITED TO RT FA BY STEVE EMERSON. IV FLUIDS CONTINUED ORDERED. EXPRESSES CONCERNS REGARDING LANTUS. MED REC HAS LATUS 50 UNITS BID. PATIENT REPORTS CORRECT. CURRENT ORDER LANTUS 20 UNITS BID. NOTIFY . LANTUS 35 UNITS BID ORDERED VIA TELEPHONE PER . DENIES ANY OTHER NEEDS AT THIS TIME. CONTINUE PLAN OF CARE AND SAFETY PRECAUTIONS.
[2018-10-11 19:15] LABS: ANION GAP 15.5 mmol/L (8-16); CALCIUM 9.8 mg/dL (8.5-10.1); CARBON DIOXIDE 25.4 mmol/L (21.0-32.0); CREATININE - SERUM 2.8 mg/dL (0.6-1.3); POTASSIUM - SERUM 4.9 mmol/L (3.5-5.1)
[2018-10-11 19:49] VITALS: BP 158/68
--- NOTE | 2018-10-11 19:54 | NUR ---
RECIEVED UP IN VBED WITH EYES OPEN AND TV ON. ALERT AND ORIENTED X4. UP AD ERWIN TO B/R. IV TO RT FA WITH NS AT 125ML/HR. REPORTED POSSIBLE MID LINE PLACEMENT TOMMOROW. PSORISIS GENERALIZED OVER ENTIRE BODY. TX IN PLACE. DENIES ANY NEEDS AT THIS TIME.
[2018-10-11 23:18] VITALS: BP 159/65
[2018-10-12] VITALS (13 sets, daily range): BP systolic 93–123; BP diastolic 41–64
[2018-10-12 06:28] LABS: ANION GAP 17.2 mmol/L (8-16); CALCIUM 9.9 mg/dL (8.5-10.1); CARBON DIOXIDE 25.7 mmol/L (21.0-32.0); CREATININE - SERUM 2.6 mg/dL (0.6-1.3); POTASSIUM - SERUM 4.9 mmol/L (3.5-5.1)
[2018-10-12 09:35] LABS: INR 0.98 (0.85-1.17); PROTIME 12.5 SECONDS (11.6-15.0)
--- NOTE | 2018-10-12 10:39 | NUR ---
ALERT AND ORIENTED X4. SITTING UP IN BED. CONSENTS SIGNED ON CHART FOR PROCEDURE. TAKEN TO IR VIA BED. CONTINUE PLAN OF CARE AND SAFETY PRECAUTIONS.
--- NOTE | 2018-10-12 12:59 | NUR ---
Nutrition follow-up: Pt currently NPO for procedure PO intake of renal ada diet has been 75-100% of all meals Labs reviewed Wt:226# +BM RDN following.
--- NOTE | 2018-10-12 20:00 | NUR ---
RECIEVED UP IN BED WITH EYES OPEN AND TV ON. ALERT AND ORIENTED X4. UP AD ERWIN TO B/R. MIDLINE TO RIGHT UPPER ARM WITH DSG INTACT. RASH ALL OVER BODY AND ARM WITH TX IN PLACE. DENIES ANY NEEDS AT THIS TIME.
[2018-10-13 04:06] VITALS: BP 116/40
[2018-10-13 06:14] LABS: HEMATOCRIT 30.7 % (36.0-48.0); HEMOGLOBIN 10.5 g/dL (12-16); MCH 31.9 pg (26.0-34.0); MCHC 34.2 g/dL (31.0-37.0); MEAN PLATELET VOLUME 9.6 fL (7.4-10.4); RBC 3.29 10x6/uL (4.00-5.40); RDW 13.3 % (11.5-14.5); WBC 6.7 10x3/uL (4.8-10.8)
[2018-10-13 06:16] LABS: ANION GAP 13.4 mmol/L (8-16); CALCIUM 9.6 mg/dL (8.5-10.1); CARBON DIOXIDE 27.4 mmol/L (21.0-32.0); POTASSIUM - SERUM 4.8 mmol/L (3.5-5.1)
[2018-10-13 06:27] LABS: MCV 93.3 fL (80.0-100.0); PLATELET COUNT 140 10x3/uL (130-400)
[2018-10-13 07:28] VITALS: BP 163/65
[2018-10-13 08:05] LABS: ANISOCYTOSIS OCC; EOSINOPHILS 5 % (0-7); LYMPHOCYTES 21 % (15-50); MONOCYTES 10 % (2-11); NEUTROPHILS 63 % (40-80); PLATELET ESTIMATE NORMAL; PLATELET MORPHOLOGY PLT CLUMPS PRESENT; SMUDGE CELLS OCC
[2018-10-13 10:11] LABS: APPEARANCE CLOUDY (CLEAR); BACTERIA MANY /hpf (NONE SEEN); BILIRUBIN NEGATIVE (NEGATIVE); COLOR YELLOW (YELLOW); EPITHELIAL CELLS 0-5 /hpf (0-5); GLUCOSE 500 mg/dL (NEGATIVE); KETONE NEGATIVE (NEGATIVE); MUCUS <1+ /lpf (NONE SEEN); NITRITE POSITIVE (NEGATIVE); PROTEIN TRACE mg/dL (NEGATIVE); RED CELLS - URINE OCC /hpf (0-5); SPECIFIC GRAVITY 1.015 (1.005-1.020); UROBILINOGEN NORMAL (NORMAL); WHITE CELLS - URINE 25-50 /hpf (0-5)
[2018-10-13 10:42] LABS: CREATININE - URINE 69.6 mg/dL (30-125); PRO/CRE RATIO URINE 0.5 mg/g; PROTEIN - URINE 36.2 mg/dL (0.0-11.9)
[2018-10-13 11:39] VITALS: BP 124/52
[2018-10-13 15:34] VITALS: BP 143/51
[2018-10-13 19:29] LABS: CALCIUM 9.6 mg/dL (8.5-10.1); CARBON DIOXIDE 21.7 mmol/L (21.0-32.0); CREATININE - SERUM 1.6 mg/dL (0.6-1.3)
[2018-10-13 19:30] LABS: POTASSIUM - SERUM 5.7 mmol/L (3.5-5.1)
--- NOTE | 2018-10-13 19:50 | NUR ---
EVENING ROUNDS COMPLETED. VSS, AA0X4. NO S/S OF RESP. DISTRESS. PT UP IN BED WITH EYES OPEN. RIGHT UPPER ARM MID-LINE INTACT. BILIDRAIN C/D/I. GENERALIZED RASH OBSERVED WITH TX IN PLACE. WATER PROVIDED PER PT REQUEST. DENIES ANY FURTHER NEEDS AT THIS TIME. WILL CPOC. CL WITHIN REACH, BED IN LOW.
[2018-10-13 20:00] VITALS: BP 105/46
--- NOTE | 2018-10-13 21:56 | NUR ---
PT FSBS 256. 16UNITS OF INSULIN AND 50 UNITS OF LANTUS GIVEN PER SLIDING SCALE. FLUSHED PT BILI-DRAIN WITH 10CC'S NS. CUP OF ICE PROVIDED PER PT REQUEST. WILL CPOC. CL IN REACH.
[2018-10-14] VITALS: BP 98/52
[2018-10-14 04:30] VITALS: BP 115/62
--- NOTE | 2018-10-14 07:05 | NUR ---
ALERT ABLE TO VOICE NEEDS. DENIES ANY CURRENT NEEDS. BILI DRAIN INTACT WITH SCANT AMOUNT OF RED DRAINAGE AND 5CC EMPTIED AT THIS TIME. CL IN REACH.
--- NOTE | 2018-10-14 08:30 | NUR ---
MEDS GIVEN PER ORDERS. CL IN REACH RESP EVEN WITHOUT LABOR. ALERT TAKING PO FLUIDS WELL.
[2018-10-14 08:33] LABS: ANION GAP 16.6 mmol/L (8-16); CALCIUM 10.1 mg/dL (8.5-10.1); CARBON DIOXIDE 23.9 mmol/L (21.0-32.0); CREATININE - SERUM 1.4 mg/dL (0.6-1.3)
[2018-10-14 08:34] LABS: POTASSIUM - SERUM 4.5 mmol/L (3.5-5.1)
[2018-10-14 08:40] VITALS: BP 134/44
--- NOTE | 2018-10-14 08:45 | NUR ---
DR MILLS AT BEDSIDE AND SPOKE WITH HER. LASHAWN FROM IR CAME IN ALSO. BOTH ARE AWARE OF DRAINAGE FROM LAST NIGHT AND WHAT I EMPTIED THIS AM.
--- NOTE | 2018-10-14 11:00 | NUR ---
LASHAWN FROM IR PUT TPA IN BILI LINE AND CLAMPED IT. TOLD ME TO OPEN IT AT 1215 TO DRAIN BUT HE WAS ONLY ABLE TO GET 7CC IN IT. ALSO STATED TO SKIP THE FLUSH AT 1400 AND JUST DO ONE AT AROUND 7 TONIGHT.
--- NOTE | 2018-10-14 12:15 | NUR ---
CLAMP UNCLAMPED TO BILI LINE WITH 10 CC RETURN OF SLIGHTLY BLOODY DRAINAGE. NO C/O VOICED.
[2018-10-14 12:30] VITALS: BP 147/56
[2018-10-14 15:14] LABS: ANA REFLEX - DIRECT Negative (Negative)
--- NOTE | 2018-10-14 15:41 | NUR ---
SHE IS HAVING MUSCLE SPASMS. REPOSITIONED IN BED AND OXYCODONE GIVEN BECAUSE SHE DID NOT WANT ULTRAM. SHE DOES WANT TO TAKE ZANAFLEX BUT IT IS ONLY AT [facility] PR[facility]. I TOLD HER IF OXYCODONE DID NOT HELP WE WOULD SEE ABOUT A ONE TIME ORDER AND SHE AGREED TO THIS.
--- NOTE | 2018-10-14 16:30 | NUR ---
PAIN MED HELPED HER MUSCLE SPASMS. SON HAS CAME FOR VISIT. BILI-DRAIN IS INTACT WITH SMALL AMOUNT OF RED DRAINAGE. CL IN REACH.
[2018-10-14 16:36] VITALS: BP 132/54
[2018-10-14 17:09] LABS: ANCA - ANTIMYELOPEROXIDASE <9.0 U/mL (0.0-9.0); ANCA - ANTIPROTEINASE 3 <3.5 U/mL (0.0-3.5); ANCA - ATYPICAL <1:20 titer (Neg:<1:20); ANCA - CYTOPLASMIC <1:20 titer (Neg:<1:20); ANCA - PERINUCLEAR <1:20 titer (Neg:<1:20)
[2018-10-14 19:41] LABS: ANION GAP 17.2 mmol/L (8-16); CALCIUM 10.5 mg/dL (8.5-10.1); CARBON DIOXIDE 22.2 mmol/L (21.0-32.0); CREATININE - SERUM 1.5 mg/dL (0.6-1.3); POTASSIUM - SERUM 4.4 mmol/L (3.5-5.1)
[2018-10-14 20:00] VITALS: BP 146/74
--- NOTE | 2018-10-14 21:30 | NUR ---
EVENING ROUNDS COMPLETED. VSS, AAOX4. NO S/S OF RESP DISTRESS. MIDLINE TO RIGHT UPPER ARM INTACT. BILI-DRAIN INTACT, FLUSHED WITH 10CC'S. GENERELIZED RASH NOTED. FSBS 254, 16 UNIT OF HUMULIN AND 50 UNIT OF LANTUS GIVEN. PT VOICED THANKS. DENIES ANY FURTHER NEEDS AT THIS TIME. WILL CPOC.
[2018-10-15 00:30] VITALS: BP 147/56
--- NOTE | 2018-10-15 00:39 | NUR ---
PT RESTING COMFORTABLY IN BED WITH EYES CLOSE. DENIES ANY FURTHER NEEDS AT THIS TIME.
[2018-10-15 04:20] VITALS: BP 141/58
[2018-10-15 06:05] LABS: BASOPHILS 0.6 % (0-2); EOSINOPHILS 3.3 % (0-7); HEMATOCRIT 32.1 % (36.0-48.0); HEMOGLOBIN 10.9 g/dL (12-16); IMMATURE GRANULOCYTES 0.1 % (0-5); LYMPHOCYTES 31.7 % (15-50); MCH 31.7 pg (26.0-34.0); MCV 93.3 fL (80.0-100.0); MEAN PLATELET VOLUME 9.2 fL (7.4-10.4); MONOCYTES 7.8 % (2-11); NEUTROPHILS 56.5 % (40-80); RBC 3.44 10x6/uL (4.00-5.40); RDW 13.7 % (11.5-14.5); WBC 6.9 10x3/uL (4.8-10.8)
[2018-10-15 06:18] LABS: PLATELET COUNT 200 10x3/uL (130-400)
[2018-10-15 06:25] LABS: ANION GAP 15.4 mmol/L (8-16); CALCIUM 10.4 mg/dL (8.5-10.1); CARBON DIOXIDE 23.1 mmol/L (21.0-32.0); CREATININE - SERUM 1.4 mg/dL (0.6-1.3); POTASSIUM - SERUM 4.5 mmol/L (3.5-5.1)
--- NOTE | 2018-10-15 06:27 | NUR ---
PT FSBS 164. PT REFUSED HUMULIN PER SLIDING SCALE. STATES SHE WILL GET HER 20UNITS INSULIN BEFORE HER MEAL. WILL NOTIFY INCOMING NURSE ABOUT PT'S REQUEST.
--- NOTE | 2018-10-15 07:05 | NUR ---
ALERT ABLE TO VOICE NEEDS. SITTING IN BED WATCHING TV. CL IN REACH. RESP EVEN WITHOUT LABOR. BILI-TUBE TO LEFT SIDE INTACT WITH DRESSING CLEAN AND DRY. MINIMAL AMOUNT OF BLOODY DRAINAGE NOTED
[2018-10-15 08:23] VITALS: BP 152/58
--- NOTE | 2018-10-15 10:00 | NUR ---
RESP EVEN WITHOUT LABOR. WILL CONTINUE CURRENT PLAN OF CARE AND MONITOR. SHE IS NAPPING ON AND OFF BUT AROUSES EASILY.
[2018-10-15 11:14] LABS: SPE - A/G RATIO 1.1 (0.7-1.7); SPE - ALBUMIN 3.4 g/dL (2.9-4.4); SPE - ALPHA-1 GLOBULIN 0.2 g/dL (0.0-0.4); SPE - ALPHA-2 GLOBULIN 0.9 g/dL (0.4-1.0); SPE - BETA GLOBULIN 1.1 g/dL (0.7-1.3); SPE - M-SPIKE Not Observed g/dL (Not Observed); SPE - TOTAL PROTEIN 6.6 g/dL (6.0-8.5)
[2018-10-15 11:29] VITALS: BP 143/62
--- NOTE | 2018-10-15 12:30 | NUR ---
NO C/O VOICED. BILI LINE REMAINS INTACT. CL IN REACH.
--- NOTE | 2018-10-15 13:16 | MORECARE ---
CASE MANAGEMENT DISCHARGE SUMMARY PATIENT: KELLY DAS UNIT: [id number] ADM DATE: 10/09/18 AGE: 68 : 50 SEX: F ROOM/BED: D.5903 AUTHOR: KEKE,DOC PHYSICIAN: REFERRING PHYSICIAN: DAVEY ANN MD DATE OF SERVICE: 10/15/18 Discharge Plan Patient Name: KELLY DAS Facility: [facility]:[place] : 1950 Planned Disposition: Home with Infusion Therapy Services Anticipated Discharge Date: Discharge Date: Expected LOS: Initial Reviewer: JENN Initial Review Date: 10/11/2018 Generated: 10/15/18 2:16 pm Comments DCP- Discharge Planning Updated by [id number]: Pat Joya on 10/11/18 2:[address] Patient Name: KELLY DAS Admission Status: ER Accout number: [id number] Admission Date: 10-09-2018 : 1950 Admission Diagnosis:HYPERKALEMIA Attending: DAVEY ANN Current LOS: 2 Anticipated DC Date: Planned Disposition: Primary Insurance: MEDICARE A & B Discharge Planning Comments: PT WAS RECENTLY SENT HOME ON IV ABX TX. SHE STATES SHE WAS OFF THE ABX WHEN SHE CAME IN THIS TIME. SHE USES [facility] AND [facility]. SHE WOUJLD LIKE TO CONTINUE WITH THEM AT [place] IF NEEDED. HER IS CURRENTLY IN THE HOSPITAL IN [place] AND SHE IS WANTING TO GET OUT OF HOSPITAL SOON POSSIBLE. Dental Assistant: Pat Joya DCPIA - Discharge Planning Initial Assessment Updated by [id number]: Pat Joya on 10/11/18 3:47 pm * Is the patient Alert and Oriented? Yes * PCP DAE GUAJARDO * Pharmacy [facility] * Preadmission Environment Home with Family * ADLs Independent * Verbal permission to speak to the caregivers and representatives has been obtained from the patient. N/A * Additional services required to return to the preadmission environment? No * Can the patient safely return to the preadmission environment? Yes * Has this patient been hospitalized within the prior 30 days at any hospital? Yes External Providers External Provider: [facility] Next Contact Date: 10/15/2018 Service Request Date: Service Type: Resolution: Reviewer: Comments: [facility] Next Contact Date: 10/15/2018 Service Request Date: Service Type: Resolution: Reviewer: Comments: Coverage Notice Reviewer: [id number] Jama Notice Issued Date-Time: 10/15/2018 12:10 Notice Type: Patient Choice Letter Notice Delivered To: Patient Relationship to Patient: Director Data Processing Name: Delivery Method: HAND - Hand Delivered Renetta Days: Prior Verbal Notification: Recipient Understood Notice: Yes Recipient Signature: Yes Med Rec Note Co-signed by Attending: Coverage Notice Comment: [facility] Reviewer: [id number] Simran Jama Notice Issued Date-Time: 10/15/2018 12:10 Notice Type: IM Discharge Notice Notice Delivered To: Patient Relationship to Patient: Director Data Processing Name: Delivery Method: HAND - Hand Delivered Renetta Days: Prior Verbal Notification: Recipient Understood Notice: Yes Recipient Signature: Yes Med Rec Note Co-signed by Attending: Coverage Notice Comment: Last DP export: 10/11/18 2:49 pm Patient Name: KELLY DAS Page 70440 at 1316 All edits/amendments must be made on the electronic document DICTATION DATE: 10/15/18 1316 GLOBAL MARKETING INTERN: DESIRAE 10/15/18 1316 RPT#: [id number] DC DATE: STATUS: ADM IN [facility] [address] [place] [address] END OF REPORT
--- NOTE | 2018-10-15 14:05 | NUR ---
BILI-LINE FLUSH DONE WITH 10CC NS. FLUSHED EASILY.
--- NOTE | 2018-10-15 14:10 | MORECARE ---
CASE MANAGEMENT DISCHARGE SUMMARY PATIENT: KELLY DAS UNIT: [id number] ADM DATE: 10/09/18 AGE: 68 : 50 SEX: F ROOM/BED: D.3343 AUTHOR: KEKE,DOC PHYSICIAN: REFERRING PHYSICIAN: DAVEY ANN MD DATE OF SERVICE: 10/15/18 Discharge Plan Patient Name: KELLY DAS Facility: [facility]:[place] : 1950 Planned Disposition: Home with Infusion Therapy Services Anticipated Discharge Date: Discharge Date: Expected LOS: Initial Reviewer: [id number] Initial Review Date: 10/11/2018 Generated: 10/15/18 3:10 pm Comments DCP- Discharge Planning Updated by [id number]: Niels Jama on 10/15/18 1:[address] Patient Name: KELLY DAS Encounter No: [id number] : 1950 Primary Insurance: MEDICARE A & B Anticipated DC Date: Planned Disposition: Home with Infusion Therapy Services External Planned Provider: [facility] ([place]) DCP follow-up note: CM RECEIVED HOME HEALTH AND HOME INFUSION ORDER FROM DR. GOFF. CM MET WITH PT IN ROOM TO DISCUSS DISCHARGE NEEDS AND PLANNING. CM DISCUSSED AVAILABILITY OF HOME HEALTH, REHAB SERVICES AND MEDICAL EQUIPMENT. PT WANTS TO USE [facility] AND [facility] IN [place]. CHOICE SIGNED. IMPORTANT MESSAGE FROM MEDICARE PROVIDED AND EXPLAINED. CM CALLED [facility]ICE, , SPOKE TO MOI WHO ACCEPTED REFERRAL FOR HOME HEALTH INFUSION SERVICES. CM FAXED REFERRAL TO [facility] AT [phone]. CM CALLED [facility], , SPOKE TO KELLY WHO TOOK REFERRAL FOR HOME INFUSION. CM FAXED REFERRAL TO [facility] AT [phone]. [facility] WILL DELIVER MEDICATIONS TO PT'S HOME SAME DAY WHEN NOTIFIED OF DISCHARGE. [facility] CAN DELIVER WEEKENDS ALSO AND REPORTS TO BE A 24 HOUR PHARMACY. FOR DISCHARGE FAX ORDER AND DISCHARGE INFORMATION TO [facility] AT [phone], CALL AND NOTIFY [facility] OF DISCHARGE HOME AT [phone]. NOTIFY [facility] OF DISCHARGE AT [phone] FOR THEM TO DELIVER MEDICATIONS TO PT'S HOME. Niels Jama, CASE MANAGEMENT DCP- Discharge Planning Updated by [id number]: Pat Joya on 10/11/18 2:[address] Patient Name: KELLY DAS Admission Status: ER Accout number: [id number] Admission Date: 10-09-2018 : 1950 Admission Diagnosis:HYPERKALEMIA Attending: DAVEY ANN Current LOS: 2 Anticipated DC Date: Planned Disposition: Primary Insurance: MEDICARE A & B Discharge Planning Comments: PT WAS RECENTLY SENT HOME ON IV ABX TX. SHE STATES SHE WAS OFF THE ABX WHEN SHE CAME IN THIS TIME. SHE USES [facility] AND [facility]. SHE WOUJLD LIKE TO CONTINUE WITH THEM AT [place] IF NEEDED. HER IS CURRENTLY IN THE HOSPITAL IN [place] AND SHE IS WANTING TO GET OUT OF HOSPITAL SOON POSSIBLE. Service Desk Analyst: Pat Joya DCPIA - Discharge Planning Initial Assessment Updated by [id number]: Pat Joya on 10/11/18 3:47 pm * Is the patient Alert and Oriented? Yes * PCP DAE GUAJARDO * Pharmacy [facility] * Preadmission Environment Home with Family * ADLs Independent * Verbal permission to speak to the caregivers and representatives has been obtained from the patient. N/A * Additional services required to return to the preadmission environment? No * Can the patient safely return to the preadmission environment? Yes * Has this patient been hospitalized within the prior 30 days at any hospital? Yes Coverage Notice Reviewer: [id number] Simran Jama Notice Issued Date-Time: 10/15/2018 12:10 Notice Type: Patient Choice Letter Notice Delivered To: Patient Relationship to Patient: Cycle Specialist Name: Delivery Method: HAND - Hand Delivered Renetta Days: Prior Verbal Notification: Recipient Understood Notice: Yes Recipient Signature: Yes Med Rec Note Co-signed by Attending: Coverage Notice Comment: [facility] Reviewer: [id number] Simran Jama Notice Issued Date-Time: 10/15/2018 12:10 Notice Type: IM Discharge Notice Notice Delivered To: Patient Relationship to Patient: Cycle Specialist Name: Delivery Method: HAND - Hand Delivered Renetta Days: Prior Verbal Notification: Recipient Understood Notice: Yes Recipient Signature: Yes Med Rec Note Co-signed by Attending: Coverage Notice Comment: Last DP export: 10/15/18 12:16 pm Patient Name: KELLY DAS Page 71018 at 1410 All edits/amendments must be made on the electronic document DICTATION DATE: 10/15/181409 FIBREGLASS LAY UP WORKER: DESIRAE 10/15/181409 RPT#: [id number] DC DATE: STATUS: ADM IN [facility] [address] [place] [address] END OF REPORT
[2018-10-15 15:14] LABS: UPE RAND - ALPHA 1 GLOBULIN 4.1 % (()); UPE RAND - ALPHA 2 GLOBULIN 12.8 % (()); UPE RAND - BETA GLOBULIN 29.9 % (()); UPE RAND - GAMMA GLOBULIN 18.1 % (())
[2018-10-15 15:58] VITALS: BP 119/52
--- NOTE | 2018-10-15 15:58 | MORECARE ---
CASE MANAGEMENT DISCHARGE SUMMARY PATIENT: KELLY DAS UNIT: [id number] ADM DATE: 10/09/18 AGE: 68 : 50 SEX: F ROOM/BED: D.0446 AUTHOR: KEKE,DOC PHYSICIAN: REFERRING PHYSICIAN: DAVEY ANN MD DATE OF SERVICE: 10/15/18 Discharge Plan Patient Name: KELLY DAS Facility: [facility]:[place] : 1950 Planned Disposition: Home with Infusion Therapy Services Anticipated Discharge Date: Discharge Date: Expected LOS: Initial Reviewer: [email or web address] Initial Review Date: 10/11/2018 Generated: 10/15/18 4:58 pm Comments DCP- Discharge Planning Updated by [id number]: Niels Jama on 10/15/18 2:[address] Patient Name: KELLY DAS Encounter No: [id number] : 1950 Primary Insurance: MEDICARE A & B Anticipated DC Date: Planned Disposition: Home with Infusion Therapy Services External Planned Provider: [facility] ([place]) DCP follow-up note: CM RECEIVED HOME HEALTH AND HOME INFUSION ORDER FROM DR. GOFF. CM MET WITH PT IN ROOM TO DISCUSS DISCHARGE NEEDS AND PLANNING. CM DISCUSSED AVAILABILITY OF HOME HEALTH, REHAB SERVICES AND MEDICAL EQUIPMENT. PT WANTS TO USE [facility] AND [facility] IN [place]. CHOICE SIGNED. IMPORTANT MESSAGE FROM MEDICARE PROVIDED AND EXPLAINED. CM CALLED [facility]ICE, , SPOKE TO MOI WHO ACCEPTED REFERRAL FOR HOME HEALTH INFUSION SERVICES. CM FAXED REFERRAL TO [facility] AT [phone]. CM CALLED [facility], , SPOKE TO KELLY WHO TOOK REFERRAL FOR HOME INFUSION. CM FAXED REFERRAL TO [facility] AT [phone]. [facility] WILL DELIVER MEDICATIONS TO PT'S HOME SAME DAY WHEN NOTIFIED OF DISCHARGE. [facility] CAN DELIVER WEEKENDS ALSO AND REPORTS TO BE A 24 HOUR PHARMACY. FOR DISCHARGE FAX ORDER AND DISCHARGE INFORMATION TO [facility] AT [phone], CALL AND NOTIFY [facility] OF DISCHARGE HOME AT [phone]. NOTIFY [facility] OF DISCHARGE AT [phone] FOR THEM TO DELIVER MEDICATIONS TO PT'S HOME. Niels Jama, CASE MANAGEMENT Appended by Niels Jama on 10/15/2018 15:48 CDT: CM RECEIVED CALL FROM [facility] IN [place], THEY WILL PROCESS PT'S MEDICATION ORDER FOR DISCHARGE HOME. FOR DISCHARGE FAX ORDER AND DISCHARGE INFORMATION TO [facility] [place] OFFICE AT [phone], CALL AND NOTIFY [facility] OF DISCHARGE HOME AT [phone]. NOTIFY [facility] OF DISCHARGE AT [phone] FOR THEM TO DELIVER MEDICATIONS TO PT'S HOME. Niels Jama, CASE MANAGEMENT DCP- Discharge Planning Updated by [id number]: Pat Joya on 10/11/18 2:[address] Patient Name: KELLY DAS Admission Status: ER Accout number: [id number] Admission Date: 10-09-2018 : 1950 Admission Diagnosis:HYPERKALEMIA Attending: DAVEY ANN Current LOS: 2 Anticipated DC Date: Planned Disposition: Primary Insurance: MEDICARE A & B Discharge Planning Comments: PT WAS RECENTLY SENT HOME ON IV ABX TX. SHE STATES SHE WAS OFF THE ABX WHEN SHE CAME IN THIS TIME. SHE US[facility]. SHE WOUJLD LIKE TO CONTINUE WITH THEM AT [place] IF NEEDED. HER IS CURRENTLY IN THE HOSPITAL IN [place] AND SHE IS WANTING TO GET OUT OF HOSPITAL SOON POSSIBLE. Traditional Ma[facility] Health Practitioner: Pat Joya DCPIA - Discharge Planning Initial Assessment Updated by [id number]: Pat Joya on 10/11/18 3:47 pm * Is the patient Alert and Oriented? Yes * PCP DAE GUAJARDO * Pharmacy [facility] * Preadmission Environment Home with Family * ADLs Independent * Verbal permission to speak to the caregivers and representatives has been obtained from the patient. N/A * Additional services required to return to the preadmission environment? No * Can the patient safely return to the preadmission environment? Yes * Has this patient been hospitalized within the prior 30 days at any hospital? Yes Coverage Notice Reviewer: [id number] - Niels Jama Notice Issued Date-Time: 10/15/2018 12:10 Notice Type: Patient Choice Letter Notice Delivered To: Patient Relationship to Patient: Residential Service Technician Name: Delivery Method: HAND - Hand Delivered Renetta Days: Prior Verbal Notification: Recipient Understood Notice: Yes Recipient Signature: Yes Med Rec Note Co-signed by Attending: Coverage Notice Comment: [facility] Reviewer: [id number] Simran Jama Notice Issued Date-Time: 10/15/2018 12:10 Notice Type: IM Discharge Notice Notice Delivered To: Patient Relationship to Patient: Residential Service Technician Name: Delivery Method: HAND - Hand Delivered Renetta Days: Prior Verbal Notification: Recipient Understood Notice: Yes Recipient Signature: Yes Med Rec Note Co-signed by Attending: Coverage Notice Comment: Last DP export: 10/15/18 1:10 pm Patient Name: KELLY DAS Page 89554 at 1558 All edits/amendments must be made on the electronic document DICTATION DATE: 10/15/188 SUPERVISOR ELEMENTARY EDUCATION: DESIRAE 10/15/18 1558 RPT#: [id number] DC DATE: STATUS: ADM IN [facility] [address] [place] [address] END OF REPORT
--- NOTE | 2018-10-15 16:00 | NUR ---
DENIES ANY NEEDS. UP TO BATHROOM GERARDO WELL. STATED IT DIDNT BURN BAD WHEN SHE URINATED THIS TIME.
--- NOTE | 2018-10-15 18:35 | NUR ---
TOTAL OUT OF BILI-TUBE WAS 15CC THIS SHIFT. DRESSING IS INTACT JUST MINIMAL DRAINAGE NOTED. SHE DENIES ANY NEEDS AT THIS TIME.
[2018-10-15 19:21] LABS: ANION GAP 16.2 mmol/L (8-16); CALCIUM 10.4 mg/dL (8.5-10.1); CREATININE - SERUM 1.4 mg/dL (0.6-1.3); POTASSIUM - SERUM 4.2 mmol/L (3.5-5.1)
--- NOTE | 2018-10-15 19:35 | NUR ---
PT RESTING IN BED LAYING ON RIGHT SIDE. PT IS AAO, DENIES ANY NEEDS, STATES SHE DOESNT FEEL VERY WELL. COMPLAINS OF BURNING DURING URINATION AND STATES IF ALSO GOMEZ WHEN NOT URINATING. PT HAS NO S/S OF DISTRESS. BEDLOW AND CALL LIGHT IN REACH. NAME AND DATE PLACED ON BOARD. WILL CPOC
[2018-10-15 20:00] VITALS: BP 133/62
--- NOTE | 2018-10-15 22:51 | NUR ---
50 UNITS OF LANTUS ORDERED. 8 UNITS OF HUMILIN ORDERED. PT GIVEN A SANDWICH FOR A SNACK. CREAM APPLIED ORDERED. PT ASKING FOR XANAFLEX MUSCLE RELAXER. WILL GIVE ORDERED. PT DENIES ANY OTHER NEEDS. WILL CPOC
--- NOTE | 2018-10-15 23:06 | NUR ---
XANAFLEX GIVEN. PT BILI DRAIN FLUSHED WITH 10ML OF NS. PT DENIES ANY OTHER NEEDS. WILL CPOC
[2018-10-16] VITALS: BP 129/85
--- NOTE | 2018-10-16 01:08 | NUR ---
PT GIVEN BREIFS. PT DENIES ANY NEEDS. LOWER BACK DRSG CDI. PT HAS NO S/S OF DISTRESS. PT WILL CPOC
[2018-10-16 04:00] VITALS: BP 120/51
--- NOTE | 2018-10-16 06:39 | NUR ---
FLUSHED BILI DRAIN. PT FSBS IS 191 TREATED PT WITH 20 UNITS HUMILIN FOR AC DOSE PLUS THE 8 UNITS OF SLIDLING SCALE DOSE TOTAL OF 28 UNITS OF HUMILIN PT REQUESTED LANTUS AT THIS TIME. GAVE 50 UNITS OF LANTUS. SNACK PROVIDED. PAIN MEDICATION GIVEN FOR PAIN. PT DENIES ANY OTHER NEEDS. NO S/S OF DISTRESS. WILL CPOC
[2018-10-16 07:38] LABS: BASOPHILS 0.2 % (0-2); EOSINOPHILS 3.6 % (0-7); HEMOGLOBIN 11.6 g/dL (12-16); IMMATURE GRANULOCYTES 0.2 % (0-5); LYMPHOCYTES 28.2 % (15-50); MCH 31.7 pg (26.0-34.0); MCHC 34.1 g/dL (31.0-37.0); MCV 92.9 fL (80.0-100.0); MEAN PLATELET VOLUME 9.2 fL (7.4-10.4); MONOCYTES 7.4 % (2-11); NEUTROPHILS 60.4 % (40-80); PLATELET COUNT 209 10x3/uL (130-400); RBC 3.66 10x6/uL (4.00-5.40); RDW 13.6 % (11.5-14.5); WBC 8.4 10x3/uL (4.8-10.8)
[2018-10-16 08:14] LABS: CALCIUM 10.2 mg/dL (8.5-10.1); CARBON DIOXIDE 21.4 mmol/L (21.0-32.0); CREATININE - SERUM 1.3 mg/dL (0.6-1.3); POTASSIUM - SERUM 4.4 mmol/L (3.5-5.1)
[2018-10-16 08:28] VITALS: BP 179/67
[2018-10-16 10:02] LABS: APPEARANCE CLEAR (CLEAR); COLOR ORANGE (YELLOW); SPECIFIC GRAVITY 1.015 (1.005-1.020)
[2018-10-16 10:06] LABS: BACTERIA FEW /hpf (NONE SEEN); EPITHELIAL CELLS 0-5 /hpf (0-5); RED CELLS - URINE OCC /hpf (0-5)
[2018-10-16 10:07] LABS: HYALINE CAST 0-5 /lpf (NONE SEEN); MUCUS <1+ /lpf (NONE SEEN)
--- NOTE | 2018-10-16 10:17 | NUR ---
PT ALERT X 4. BREATH SOUNDS CLEAR BILAT. MIDLINE TO RIGHT UPPER ARM, SALINE LOCKED. DRAIN TO RLQ OF BACK, REMOVED BY IR NOW. PT REPORTING MILD PAIN, WILL MONITOR. BED LOW, CALL LIGHT IN REACH. NO OTHER NEEDS AT THIS TIME.
--- NOTE | 2018-10-16 11:35 | NUR ---
SPOKE WITH DR ANN, GIVEN RESULTS OF UA. INFORMED OF DRAIN REMOVAL. IF OK WITH DR GOFF WILL DC PT TODAY
[2018-10-16 12:34] VITALS: BP 159/63
[2018-10-16] MEDS ORDERED: TEMOVATE 0.05%15 G1 TOPICAL (12:35)
[2018-10-16] MEDS ORDERED: PHENAZOPYRIDIN100 MG PO (12:35)
[2018-10-16] MEDS ORDERED: LEVOFLOXACIN500 MG PO (12:36)
--- NOTE | 2018-10-16 12:36 | NUR ---
SPOKE WITH DR GOFF. SHE STATED THAT SHE IS OK WITH PT DC'ING HOME WITH HOME HEALTH.
--- NOTE | 2018-10-16 14:12 | MORECARE ---
CASE MANAGEMENT DISCHARGE SUMMARY PATIENT: KELLY DAS UNIT: [id number] ADM DATE: 10/09/18 AGE: 68 : 50 SEX: F ROOM/BED: D.6293 AUTHOR: KEKE,DOC PHYSICIAN: REFERRING PHYSICIAN: DAVEY ANN MD DATE OF SERVICE: 10/16/18 Discharge Plan Patient Name: KELLY DAS Facility: [facility]:[place] : 1950 Planned Disposition: Home with Infusion Therapy Services Anticipated Discharge Date: Discharge Date: Expected LOS: Initial Reviewer: [id number] Initial Review Date: 10/11/2018 Generated: 10/16/18 3:11 pm Comments DCP- Discharge Planning Updated by [id number]: Niels Jama on 10/16/18 1:[address] Patient Name: KELLY DAS Encounter No: [id number] : 1950 Primary Insurance: MEDICARE A & B Anticipated DC Date: Planned Disposition: Home with Infusion Therapy Services External Planned Provider: [facility] DCP follow-up note: CM SPOKE TO DR. GOFF WHO INFORMED CM THAT PT IS READY TO DISCHARGE FROM HER STANDPOINT, NEED FOLLOW UP WITH DR. GOFF ON 10-23, AND DR ANN NEEDS NOTIFIED FOR DISCHARGE. CM CALLED DR. GOLDEN OFFICE, NOTIFEID NURSE AYO. CM PROVIDED PRESS CUTTER WITH NEED FOR DR. GOFF FOLLOW UP APPOINTMENT. CM SPOKE TO PT IN ROOM, PT IN AGREEMENT WITH DISCHARGE TODAY, HER SON WILL PICK HER UP. PT DENIES FURTHER DISCHARGE NEEDS. CM FAXED ORDER AND DISCHARGE INFORMATION TO Consult A [facility] OFFICE AT [phone], CALLED AND NOTIFIED ALBERTINA DALTON OF DISCHARGE HOME AT [phone]. NOTIFIED [facility] OF DISCHARGE AT [phone] FOR THEM TO DELIVER MEDICATIONS TO PT'S HOME. [facility] WILL ADMIT PT TOMORROW FOR HOME INFUSION SERVICES. VENESSA Harris MANAGEMENT DCP- Discharge Planning Updated by [id number]: Niels Jama on 10/15/18 2:[address] Patient Name: KELLY DAS Encounter No: [id number] : 1950 Primary Insurance: MEDICARE A & B Anticipated DC Date: Planned Disposition: Home with Infusion Therapy Services External Planned Provider: [facility], [facility] / [facility] ([place]) DCP follow-up note: CM RECEIVED HOME HEALTH AND HOME INFUSION ORDER FROM DR. GOFF. CM MET WITH PT IN ROOM TO DISCUSS DISCHARGE NEEDS AND PLANNING. CM DISCUSSED AVAILABILITY OF HOME HEALTH, REHAB SERVICES AND MEDICAL EQUIPMENT. PT WANTS TO USE [facility] AND [facility] IN [place]. CHOICE SIGNED. IMPORTANT MESSAGE FROM MEDICARE PROVIDED AND EXPLAINED. CM CALLED [facility], [facility] OFFICE, , SPOKE TO MOI WHO ACCEPTED REFERRAL FOR HOME HEALTH INFUSION SERVICES. CM FAXED REFERRAL TO [facility] AT [phone]. CM CALLED [facility], , SPOKE TO KELLY WHO TOOK REFERRAL FOR HOME INFUSION. CM FAXED REFERRAL TO [facility] AT [phone]. [facility] WILL DELIVER MEDICATIONS TO PT'S HOME SAME DAY WHEN NOTIFIED OF DISCHARGE. [facility] CAN DELIVER WEEKENDS ALSO AND REPORTS TO BE A 24 HOUR PHARMACY. FOR DISCHARGE FAX ORDER AND DISCHARGE INFORMATION TO [facility] OFFICE AT [phone], CALL AND NOTIFY Consult A Doctor OF DISCHARGE HOME AT [phone]. NOTIFY [facility] OF DISCHARGE AT [phone] FOR THEM TO DELIVER MEDICATIONS TO PT'S HOME. Niels Jama, CASE MANAGEMENT Appended by Niels Jama on 10/15/2018 15:48 CDT: CM RECEIVED CALL FROM [facility] IN [place], THEY WILL PROCESS PT'S MEDICATION ORDER FOR DISCHARGE HOME. FOR DISCHARGE FAX ORDER AND DISCHARGE INFORMATION TO [facility] OFFICE AT [phone], CALL AND NOTIFY Consult A Doctor OF DISCHARGE HOME AT [phone]. NOTIFY [facility] OF DISCHARGE AT [phone] FOR THEM TO DELIVER MEDICATIONS TO PT'S HOME. Niels Jama, CASE MANAGEMENT DCP- Discharge Planning Updated by [id number]: Pat Joya on 10/11/18 2:[address] Patient Name: KELLY DAS Admission Status: ER Accout number: [id number] Admission Date: 10-09-2018 : 1950 Admission Diagnosis:HYPERKALEMIA Attending: DAVEY ANN Current LOS: 2 Anticipated DC Date: Planned Disposition: Primary Insurance: MEDICARE A & B Discharge Planning Comments: PT WAS RECENTLY SENT HOME ON IV ABX [place]. SHE STATES SHE WAS OFF THE ABX WHEN SHE CAME IN THIS TIME. SHE USES [facility] AND [facility]. SHE WOUJLD LIKE TO CONTINUE WITH THEM AT DC IF NEEDED. HER IS CURRENTLY IN THE HOSPITAL IN [place] AND SHE IS WANTING TO GET OUT OF HOSPITAL SOON POSSIBLE. Flame Hardening Machine Setter: Pat Joya DCPIA - Discharge Planning Initial Assessment Updated by [id number]: Pat Joya on 10/11/18 3:47 pm * Is the patient Alert and Oriented? Yes * PCP DAE GUAJARDO * Pharmacy [facility] * Preadmission Environment Home with Family * ADLs Independent * Verbal permission to speak to the caregivers and representatives has been obtained from the patient. N/A * Additional services required to return to the preadmission environment? No * Can the patient safely return to the preadmission environment? Yes * Has this patient been hospitalized within the prior 30 days at any hospital? Yes Coverage Notice Reviewer: [id number] Simran Jama Notice Issued Date-Time: 10/15/2018 12:10 Notice Type: Patient Choice Letter Notice Delivered To: Patient Relationship to Patient: Energy Crop Farmer Name: Delivery Method: HAND - Hand Delivered Renetta Days: Prior Verbal Notification: Recipient Understood Notice: Yes Recipient Signature: Yes Med Rec Note Co-signed by Attending: Coverage Notice Comment: [facility], [facility]ION Reviewer: [id number] Simran Jama Notice Issued Date-Time: 10/15/2018 12:10 Notice Type: IM Discharge Notice Notice Delivered To: Patient Relationship to Patient: Energy Crop Farmer Name: Delivery Method: HAND - Hand Delivered Renetta Days: Prior Verbal Notification: Recipient Understood Notice: Yes Recipient Signature: Yes Med Rec Note Co-signed by Attending: Coverage Notice Comment: Last DP export: 10/15/18 2:58 pm Patient Name: KELLY DAS Page 00210 at 1412 All edits/amendments must be made on the electronic document DICTATION DATE: 10/16/18 1411 DUST CONTROL ENGINEER: DESIRAE 10/16/18 1411 RPT#: [id number] DC DATE: STATUS: ADM IN [facility] [address] [place] [address] END OF REPORT
--- NOTE | 2018-10-16 15:18 | NUR ---
DISCHARGE PAPERWORK SIGNED, ALL QUESTIONS ANSWERED. MIDLINE LEFT IN RIGHT UPPER ARM FOR HOME HEALTH ACCESS.
--- NOTE | 2018-10-16 16:50 | MORECARE ---
CASE MANAGEMENT DISCHARGE SUMMARY PATIENT: KELLY DAS UNIT: [id number] ADM DATE: 10/09/18 AGE: 68 : 50 SEX: F ROOM/BED: D.9814 AUTHOR: KEKE,DOC PHYSICIAN: REFERRING PHYSICIAN: DAVEY ANN MD DATE OF SERVICE: 10/16/18 Discharge Plan Patient Name: KELLY DAS Facility: [facility]:[place] : 1950 Planned Disposition: Home with Infusion Therapy Services Anticipated Discharge Date: 10/16/18 Discharge Date: 10/16/2018 Expected LOS: 7 Initial Reviewer: [id number] Initial Review Date: 10/11/2018 Generated: 10/16/18 5:50 pm Comments DCP- Discharge Planning Updated by [id number]: Niels Jama on 10/16/18 1:[address] Patient Name: KELLY DAS Encounter No: [id number] : 1950 Primary Insurance: MEDICARE A & B Anticipated DC Date: Planned Disposition: Home with Infusion Therapy Services External Planned Provider: KRYSTLE RICHWOOD [email or web address] DCP follow-up note: CM SPOKE TO DR. GOFF WHO INFORMED CM THAT PT IS READY TO DISCHARGE FROM HER STANDPOINT, NEED FOLLOW UP WITH DR. GOFF ON 10-23, AND DR ANN NEEDS NOTIFIED FOR DISCHARGE. CM CALLED DR. GOLDEN OFFICE, NOTIFEID NURSE AYO. CM PROVIDED ORTHOPEDIC TECHNICIAN WITH NEED FOR DR. GOFF FOLLOW UP APPOINTMENT. CM SPOKE TO PT IN ROOM, PT IN AGREEMENT WITH DISCHARGE TODAY, HER SON WILL PICK HER UP. PT DENIES FURTHER DISCHARGE NEEDS. CM FAXED ORDER AND DISCHARGE INFORMATION TO [facility] OFFICE AT [phone], CALLED AND NOTIFIED ALBERTINA DALTON OF DISCHARGE HOME AT [phone]. NOTIFIED [facility] OF DISCHARGE AT [phone] FOR THEM TO DELIVER MEDICATIONS TO PT'S HOME. [facility] WILL [facility]MIT PT TOMORROW FOR HOME INFUSION SERVICES. VENESSA Harris DCP- Discharge Planning Updated by [email or web address]: Niels Jama on 10/15/18 2:[address] Patient Name: KELLY DAS Encounter No: [id number] : 1950 Primary Insurance: MEDICARE A & B Anticipated DC Date: Planned Disposition: Home with Infusion Therapy Services External Planned Provider: [facility], [facility] / [facility] ([place]) DCP follow-up note: CM RECEIVED HOME HEALTH AND HOME INFUSION ORDER FROM DR. GOFF. CM MET WITH PT IN ROOM TO DISCUSS DISCHARGE NEEDS AND PLANNING. CM DISCUSSED AVAILABILITY OF HOME HEALTH, REHAB SERVICES AND MEDICAL EQUIPMENT. PT WANTS TO USE [facility] AND [facility] IN [place]. CHOICE SIGNED. IMPORTANT MESSAGE FROM MEDICARE PROVIDED AND EXPLAINED. CM CALLED [facility], [facility] OFFICE, , SPOKE TO MOI WHO ACCEPTED REFERRAL FOR HOME HEALTH INFUSION SERVICES. CM FAXED REFERRAL TO [facility] AT [phone]. CM CALLED [facility], , SPOKE TO KELLY WHO TOOK REFERRAL FOR HOME INFUSION. CM FAXED REFERRAL TO [facility] AT [phone]. [facility] WILL DELIVER MEDICATIONS TO PT'S HOME SAME DAY WHEN NOTIFIED OF DISCHARGE. [facility] CAN DELIVER WEEKENDS ALSO AND REPORTS TO BE A 24 HOUR PHARMACY. FOR DISCHARGE FAX ORDER AND DISCHARGE INFORMATION TO [facility] OFFICE AT [phone], CALL AND NOTIFY [facility] OF DISCHARGE HOME AT [phone]. NOTIFY [facility] OF DISCHARGE AT [phone] FOR THEM TO DELIVER MEDICATIONS TO PT'S HOME. Niels Jama, CASE MANAGEMENT Appended by Niels Jama on 10/15/2018 15:48 CDT: CM RECEIVED CALL FROM [facility] IN [place], THEY WILL PROCESS PT'S MEDICATION ORDER FOR DISCHARGE HOME. FOR DISCHARGE FAX ORDER AND DISCHARGE INFORMATION TO [facility] OFFICE AT [phone], CALL AND NOTIFY [facility] OF DISCHARGE HOME AT [phone]. NOTIFY [facility] OF DISCHARGE AT [phone] FOR THEM TO DELIVER MEDICATIONS TO PT'S HOME. Niels Jama, CASE MANAGEMENT DCP- Discharge Planning Updated by [id number]: Pat Joya on 10/11/18 2:[address] Patient Name: KELLY DAS Admission Status: ER Accout number: [id number] Admission Date: 10-09-2018 : 1950 Admission Diagnosis:HYPERKALEMIA Attending: DAVEY ANN Current LOS: 2 Anticipated DC Date: Planned Disposition: Primary Insurance: MEDICARE A & B Discharge Planning Comments: PT WAS RECENTLY SENT HOME ON IV ABX TX. SHE STATES SHE WAS OFF THE ABX WHEN SHE CAME IN THIS TIME. SHE USES [facility] AND [facility]. SHE WOUJLD LIKE TO CONTINUE WITH THEM AT DC IF NEEDED. HER IS CURRENTLY IN THE HOSPITAL IN [place] AND SHE IS WANTING TO GET OUT OF HOSPITAL SOON POSSIBLE. Certified Nurse Operating Room: Pat Joya DCPIA - Discharge Planning Initial Assessment Updated by [id number]: Patjoie Gaviriaman on 10/11/18 3:47 pm * Is the patient Alert and Oriented? Yes * PCP DAE GUAJARDO * Pharmacy [facility] * Preadmission Environment Home with Family * ADLs Independent * Verbal permission to speak to the caregivers and representatives has been obtained from the patient. N/A * Additional services required to return to the preadmission environment? No * Can the patient safely return to the preadmission environment? Yes * Has this patient been hospitalized within the prior 30 days at any hospital? Yes Coverage Notice Reviewer: [id number] Simran Jama Notice Issued Date-Time: 10/15/2018 12:10 Notice Type: Patient Choice Letter Notice Delivered To: Patient Relationship to Patient: Dance Coach Name: Delivery Method: HAND - Hand Delivered Renetta Days: Prior Verbal Notification: Recipient Understood Notice: Yes Recipient Signature: Yes Med Rec Note Co-signed by Attending: Coverage Notice Comment: [facility], [facility] Reviewer: [id number] Simran Jama Notice Issued Date-Time: 10/15/2018 12:10 Notice Type: IM Discharge Notice Notice Delivered To: Patient Relationship to Patient: Dance Coach Name: Delivery Method: HAND - Hand Delivered Renetta Days: Prior Verbal Notification: Recipient Understood Notice: Yes Recipient Signature: Yes Med Rec Note Co-signed by Attending: Coverage Notice Comment: Last DP export: 10/16/18 1:12 pm Patient Name: KELLY DAS Page 26038 at 1650 All edits/amendments must be made on the electronic document DICTATION DATE: 06/11/278 WEB ASSISTANT: DESIRAE 10/16/18 1649 RPT#: [id number] DC DATE:10/16/18 STATUS: DIS IN [facility] [address] [place] [address] END OF REPORT
== END 2018-10-16 15:44 | disposition home health service (06) | DRG 683 ==
LOC: D.ER 22:21 → D.M2 10-09 00:06
PROVIDERS: Emergency Medicine; General Practice; Internal Medicine Nephrology; ADMIT Family Medicine; ATTEND Family Medicine
PROC: 05HB33Z Insertion of Infusion Device into Right Basilic Vein, Percutaneous Approach (ICD-10-PCS; 2018-10-12)
PROC: B54MZZA Ultrasonography of Right Upper Extremity Veins, Guidance (ICD-10-PCS; 2018-10-12)
PROC: 0K9 Muscles, Drainage (ICD-10-PCS; principal; 2018-10-12 10:55)
DX: N17.9 Acute kidney failure, unspecified (principal); M60.08 Infective myositis, other site; B37.49 Other urogenital candidiasis; R78.81 Bacteremia; E87.5 Hyperkalemia; L40.9 Psoriasis, unspecified; E11.9 Type 2 diabetes mellitus without complications; I11.0 Hypertensive heart disease with heart failure; I50.9 Heart failure, unspecified; I25.10 Atherosclerotic heart disease of native coronary artery without angina pectoris; K21.9 Gastro-esophageal reflux disease without esophagitis; F32.9 Major depressive disorder, single episode, unspecified; F41.9 Anxiety disorder, unspecified; B95.62 Methicillin resistant Staphylococcus aureus infection as the cause of diseases classified elsewhere; B96.20 Unspecified Escherichia coli [E. coli] as the cause of diseases classified elsewhere; E11.65 Type 2 diabetes mellitus with hyperglycemia; N12 Tubulo-interstitial nephritis, not specified as acute or chronic; N14.1 Nephropathy induced by other drugs, medicaments and biological substances; T50.8X5A Adverse effect of diagnostic agents, initial encounter; D50.9 Iron deficiency anemia, unspecified; Z87.891 Personal history of nicotine dependence

== ENCOUNTER → 2019-03-10 11:32 | Outpatient (CLI) | payer MEDICARE ==
[~2019-03-10 11:32] MED LIST changes: +BENICAR5 MG; +LEVOFLOXACIN500 MG PO; +PHENAZOPYRIDIN100 MG PO; +TEMOVATE 0.05%15 G1 TOPICAL
== END | disposition home or self-care (01) ==
LOC: D.US 11:30
PROVIDERS: ATTEND Obstetrics & Gynecology
DX: R19.00 Intra-abdominal and pelvic swelling, mass and lump, unspecified site (principal)

== ENCOUNTER → 2019-03-16 06:26 | Outpatient (CLI) | payer MEDICARE ==
[2019-03-16 08:21] LABS: ALBUMIN 3.9 g/dL (3.4-5.0); BILIRUBIN - DIRECT 0.17 mg/dL (0.00-0.30); BILIRUBIN - INDIRECT 0.4 mg/dL (0.00-1.00); BILIRUBIN - TOTAL 0.57 mg/dL (0.2-1.3); PROTEIN - SERUM 7.6 g/dL (6.4-8.2)
== END | disposition home or self-care (01) ==
LOC: D.US 06:26
PROVIDERS: ATTEND Internal Medicine Gastroenterology
DX: K76.0 Fatty (change of) liver, not elsewhere classified (principal)

== ENCOUNTER → 2019-03-25 11:36 | Outpatient (CLI) | payer MEDICARE ==
[2019-03-25 12:05] LABS: ANION GAP 16.4 mmol/L (8-16); CALCIUM 9.5 mg/dL (8.5-10.1); CARBON DIOXIDE 20.4 mmol/L (21.0-32.0); CREATININE - SERUM 1.3 mg/dL (0.6-1.3); POTASSIUM - SERUM 4.8 mmol/L (3.5-5.1)
== END | disposition home or self-care (01) ==
LOC: D.LAB 11:36
PROVIDERS: ATTEND Internal Medicine Gastroenterology
DX: E11.9 Type 2 diabetes mellitus without complications (principal)

== ENCOUNTER → 2019-05-13 16:54 | Outpatient (CLI) | payer MEDICARE ==
[2019-05-17 12:08] LABS: ANGIOTENSIN CONVERTING ENZYME 28 U/L (14-82)
== END | disposition home or self-care (01) ==
LOC: D.LABREF 16:54
PROVIDERS: ATTEND Internal Medicine Pulmonary Disease
DX: J44.9 Chronic obstructive pulmonary disease, unspecified (principal)

== ENCOUNTER → 2019-07-01 08:54 | Outpatient (CLI) | payer MEDICARE ==
[2019-07-01 09:55] LABS: ALBUMIN 3.9 g/dL (3.4-5.0); BILIRUBIN - DIRECT 0.13 mg/dL (0.00-0.30); BILIRUBIN - INDIRECT 0.25 mg/dL (0.00-1.00); BILIRUBIN - TOTAL 0.38 mg/dL (0.2-1.3)
[2019-07-02 11:10] LABS: ALPHA FETOPROTEIN -(TUMOR MRK) 2.1 ng/mL (0.0-8.3)
== END | disposition home or self-care (01) ==
LOC: D.US 06-02 11:30 → D.LAB 06-02 13:15 → D.US 06-02 13:30 → D.RAD 06-02 13:30 → D.RT 06-02 14:00 → D.US 08:54
PROVIDERS: ATTEND Internal Medicine Pulmonary Disease
DX: J44.9 Chronic obstructive pulmonary disease, unspecified (principal); I65.23 Occlusion and stenosis of bilateral carotid arteries; R91.8 Other nonspecific abnormal finding of lung field

== ENCOUNTER 2019-07-21 12:15 | Inpatient (IN) | payer MEDICARE ==
[~2019-07-21] VITALS: Ht 161.3 cm; Wt 104.2 kg
--- NOTE | ~2019-07-21 | HEMODYNAMI ---
PATIENT:KELLY DAS MEDICAL RECORD: [id number] : 50 LOCATION[id number] ADMISSION DATE: 07/27/19 Generatedon:07/27/201915:14 Patient name: KELLY DAS Patient #: [id number] SSN: : 1950 Date of study: 07/27/2019 Page: Of Hemodynamic Procedure Report Patient Data Patient Demographics Procedure consent was obtained First Name: KELLY Gender: Female Last Name: THIAGO : 1950 [facility] Initial: JENNIFER Age: 69 year(s) Patient #: [id number] Race: Unknown Additional ID: [id number] Contact details [address]: [address] [place] [address] [address] State: [place] City: [place] Zip code: [address] Past Medical History Allergies Allergen Reaction Date Comments Reported Other allergy 07/27/2019 protamine, antivenin ( crotalidae) Admission Admission Data Admission Date: 07/27/2019 Admission Time: 9:32 Room #: [facility] Procedure Procedure Types Cath Procedure Peripheral Cath Diagnostic Procedure 4-Vessel Right Carotid Arteriogram Procedure Description Procedure Date Procedure Date: 07/27/2019 Procedure Start Time: 13:38 Procedure Staff Name Function Jamir Álvarez MD Performing Physician Deborah Varghese RT Monitor Tc Brush RT Scrub Mallika Randhawa RN Nurse Cathy Cancino RN Nurse Procedure Data Cath Procedure Fluoroscopy Diagnostic fluoroscopy Total fluoroscopy Time: time: 16.1 min 16.1 min Diagnostic fluoroscopy Total fluoroscopy dose: dose: 1454 mGy 1454 mGy Contrast Material Contrast Material Type Amount (ml) Isovue 300 155 Entry Location Entry Primary Successful Side Size Upsize Upsize Entry Closure Succes sful Closure Location (Fr) 1 (Fr) 2 (Fr) Remarks Device Remarks Femoral Mynx artery Cathead Worker 6Fr/7Fr Diagnostic catheters Device Type Used For End Catheter Placement Matthew Limon 5FR. 100CM catheter ([id number]) Procedure Medications Medication Administration Route Dosage Heparin Flush Bag added to field 4 bags (1000units/500ml NS) Lidocaine 1% added to field 20 Versed I.V. 1 mg Fentanyl I.V. 50 mcg Heparin Bolus I.V. 6000 units Hydralizine I.V. 10 mg Versed I.V. 1 mg Versed I.V. 0.5 mg Fentanyl I.V. 25 mcg Atropine I.V. 0.5 mg Versed I.V. 0.5 mg Fentanyl I.V. 25 mcg Fentanyl I.V. 50 mcg Hemodynamics Rest Heart Rate: 63 (bpm) Snapshots Pre Cath Intra NCS Post Cath Vital Signs Time Heart Resp SPO2 etCO2 NIBP (mmHg) Rhythm Pain Sedation Rate (ipm) (%) (mmHg) Status Level (bpm) 13:11:18 63 1 99 37.8 Measuring NSR 0 (11) 10(A) , No pain 13:12:31 65 22 99 24.2 Out of NSR 0 (11) 10(A) range , No pain 13:17:30 63 34 99 30.2 Measuring NSR 0 (11) 10(A) , No pain 13:18:54 68 22 99 37.1 Time NSR 0 (11) 10(A) Exceeded , No pain 13:23:54 67 25 98 39.3 Measuring NSR 0 (11) 10(A) , No pain 13:25:17 65 23 98 39.3 Time NSR 0 (11) 10(A) Exceeded , No pain 13:30:17 66 30 98 39.3 Measuring NSR 0 (11) 10(A) , No pain 13:31:38 65 23 98 39.3 Time NSR 0 (11) 10(A) Exceeded , No pain 13:36:37 70 19 98 32.5 Measuring NSR 0 (11) 10(A) , No pain 13:37:51 66 17 99 37.1 No Cuff NSR 0 (11) 10(A) , No pain 13:40:23 66 44 99 35.5 198/85(157) NSR 0 (11) 10(A) , No pain 13:44:59 75 22 99 41.6 210/91(153) NSR 0 (11) 10(A) , No pain 13:49:36 72 21 97 42.4 203/90(152) NSR 0 (11) 10(A) , No pain 13:54:10 65 17 98 42.4 186/82(138) NSR 0 (11) 10(A) , No pain 13:59:09 66 26 98 40.8 Measuring NSR 0 (11) 10(A) , No pain 13:59:48 67 17 97 44.6 167/77(122) NSR 0 (11) 10(A) , No pain 14:04:16 63 11 98 28.7 173/75(120) NSR 0 (11) 10(A) , No pain 14:08:41 66 19 98 40 167/75(134) NSR 0 (11) 10(A) , No pain 14:13:09 71 19 98 38.5 178/77(109) NSR 0 (11) 10(A) , No pain 14:17:37 62 14 98 40.8 152/73(108) NSR 0 (11) 10(A) , No pain 14:22:36 69 18 97 39.3 Measuring NSR 0 (11) 10(A) , No pain 14:23:03 64 15 98 40 175/80(131) NSR 0 (11) 10(A) , No pain 14:27:29 61 25 98 36.3 138/51(118) NSR 0 (11) 10(A) , No pain 14:31:43 51 16 97 37 125/47(89) NSR 0 (11) 10(A) , No pain 14:36:42 39 25 92 30.2 Measuring NSR 0 (11) 10(A) , No pain 14:38:02 38 12 89 28.7 Time NSR 0 (11) 10(A) Exceeded , No pain 14:40:38 45 9 100 21.1 97/26(68) NSR 0 (11) 10(A) , No pain 14:43:03 51 16 100 30.2 98/38(72) NSR 0 (11) 10(A) , No pain 14:47:13 54 18 99 27.9 101/43(77) NSR 0 (11) 10(A) , No pain 14:52:08 56 7 98 23.4 112/48(70) NSR 0 (11) 10(A) , No pain 14:56:22 56 10 97 39.2 91/32(64) NSR 0 (11) 10(A) , No pain 15:01:05 59 11 98 20.4 95/83(92) NSR 0 (11) 10(A) , No pain 15:04:05 57 16 97 27.2 95/70(89) NSR 0 (11) 10(A) , No pain 15:09:04 61 10 27.2 Measuring NSR 0 (11) 10(A) , No pain 15:10:08 60 22 35.5 90/64(78) NSR 0 (11) 10(A) , No pain 15:14:07 0 No Cuff NSR 0 (11) 10(A) , No pain Medications Time Medication Route Dose Verified Delivered Reason Notes Ef fectiveness by by 13:38:57 Heparin Flush added 4 Jamir Bowie used for Bag to bags Preeti Álvarez procedure (1000units/500ml field MD SAM NS) 13:39:14 Lidocaine 1% added 20ml Jamir Bowie for local to vial Preeti Álvarez anesthetic field MD SAM 13:43:33 Versed I.V. 1 mg Jamir Tena for sedation Preeti Randhawa RN, MD 13:43:45 Fentanyl I.V. 50 Jamir Tena for sedation mcg Preeti Randhawa RN, MD 13:53:06 Heparin Bolus I.V. 6000 Jamir Tena Per units Preeti Randhawa RN physician 13:54:30 Hydralizine I.V. 10 mg Jamir Morgan for Preeti Cancino RN hypertension 13:54:59 Versed I.V. 1 mg Jamir Morgan for sedation Preeti Cancino RN, MD 14:14:27 Versed I.V. 0.5 Jamir Abduli for sedation mg Preeti Cancino RN, MD 14:14:40 Fentanyl I.V. 25 Jamir Morgan for sedation mcg Preeti Cancino RN, MD 14:39:57 Atropine I.V. 0.5 Jamir Abduli used for mg Preeti Cancino RN procedure 14:46:16 Versed I.V. 0.5 Jamir Abduli for sedation mg Preeti Cancino RN, MD 14:46:24 Fentanyl I.V. 25 Jamir Abduli for sedation mcg Preeti Cancino RN, MD 15:05:39 Fentanyl I.V. 50 Jamir Tena for sedation [facility] Preeti Randhawa RN, MD Procedure Log Time Note 12:56:40 Tc Ramoslulu RT (R) (CV) sent for patient. Start room use. 12:56:47 Time tracking: Regular hours (M-F 7:00 - 5:00) 12:56:56 Plan of Care:Hemodynamics will remain stable., Cardiac rhythm will remain stable., Comfort level will be maintained., Respiratory function will remain adequate., Patient/ family verbilizes understanding of procedure., Procedure tolerated without complication., Recovers from procedure without complications.. 12:57:45 Patient received from Outpatients to IR Alert and oriented. Tansferred to table in Supine position. 12:57:48 Signed procedure consent form obtained from patient. 12:57:49 Correct patient and procedure confirmed by team. 12:57:50 Full Disclosure recording started 12:57:54 Use device set IR Diagnostic 12:57:55 ACIST Syringe (60294) opened to sterile field. 12:57:55 ACIST Hand Control (61703) opened to sterile field. 12:57:55 ACIST Manifold (51490) opened to sterile field. 12:57:56 Bag Decanter (2002S) opened to sterile field. 12:57:56 Sterile Angiographic Pack opened to sterile field. 12:57:57 Tegaderm 4 x 4 (1626W) opened to sterile field. 12:58:44 ECG and BP/O2 sat monitors applied to patient. 12:58:48 - 12:58:53 H&P Date Dictated: 07/27/2019 H&P Addendum completed by physician on day of procedure. (MUST COMPLETE FOR ALL OUTPATIENTS). 12:58:55 Pre-procedure instructions explained to patient. 12:58:55 Pre-op teaching completed and patient verbalized understanding. 12:58:57 Family in waiting room. 12:59:00 Patient NPO since Midnight. 13:06:01 Patient allergic to Other allergyprotamine, antivenin ( crotalidae) 13:06:18 Is the patient allergic to Iodine/contrast media? No. 13:06:20 Is patient on blood thinner?Yes 13:06:25 Patient diabetic? Yes. 13:06:27 If diabetic: On Metformin? No 13:06:36 - 13:06:42 ----Pre-sedation anethsthesia assessment.---- 13:06:46 Previous problem with sedation/anesthesia? No ? 13:06:50 Snore? Yes 13:06:53 Sleep apnea? No 13:06:55 Deviated septum? No 13:06:58 Opens mouth fully? Yes 13:07:01 Sticks out tongue? Yes 13:07:11 Airway obstruction? Yes copd, asthma 13:07:24 Dentures? Yes uppers, secured 13:07:34 Pre procedure: right dorsailis pedis pulse Doppler 13:07:39 Pre procedure: right posterior tibial pulse Doppler 13:07:52 IV patent on arrival in right forearm with D5/.45%NaCl at KVO. 13:08:04 Right groin area was prepped with chlora-prep and draped in sterile fashion 13:08:05 - 13:08:21 3a) 45-59 Moderately reduced kidney function. 13:08:46 Maximum allowable contrast dose (3.7 X eGFR X 0.75)160 ml. 13:09:28 Vital chart was started 13:09:30 Baseline sample Acquired. 13:09:36 - 13:32:54 CHOICE PT Extra Support J 300cm guide wire ([id number]) opened to steril e field. 13:32:55 TUBING Contrast Injection High Pressure (JGD944G) opened to sterile field. 13:33:01 SHEATH 5FR Inavale (SYX628) opened to sterile field. 13:33:02 INFLATOR BasixTOUCH (WU4459) opened to sterile field. 13:33:04 Micropuncture VSI 4FR kit opened to sterile field. 13:33:05 BENTSON 145cm wire (X82573) opened to sterile field. 13:33:06 CROOK 260 wire (S09420) opened to sterile field. 13:33:23 A Matthew Barnett Limon 5FR. 100CM catheter ([id number]) was advanced over the wire and used for . 13:37:07 - 13:37:18 Physician arrived 13:37:19 --------ALL STOP TIME OUT------ 13:37:20 Final Timeout: patient, procedure, and site verified with staff and physician. All members of the team are in agreement. 13:37:47 Fire Safety Assessment: A--An alcohol-based skin anteseptic being used preoperatively., C--Open oxygen or nitrous oxide is being used. 13:38:03 Procedure started. 13:38:09 Local anesthetic to right femoral artery with Lidocaine 1% by Jamir Álvarez MD.INITIAL ACCESS ONLY 13:38:13 Arterial access obtained using ultrasound guidance. 13:38:57 Heparin Flush Bag (1000units/500ml NS) 4 bags added to field was administered by Jamir Álvarez MD; used for procedure; Verbal order read back and verified. 13:39:14 Lidocaine 1% 20ml vial added to field was administered by Jamir arroyo MD; for local anesthetic; Verbal order read back and verified. 13:43:33 Versed 1 mg I.V. was administered by Mallika Randhawa RN; for sedation; Verbal order read back and verified. 13:43:45 Fentanyl 50 mcg I.V. was administered by Mallika Randhawa RN; for sedation ; Verbal order read back and verified. 13:51:17 Cook RAABE 6FR. 90cm guide sheath opened to sterile field. 13:53:06 Heparin Bolus 6000 units I.V. was administered by Mallika Randhawa RN; Per physician; Verbal order read back and verified. 13:54:30 Hydralizine 10 mg I.V. was administered by Cathy Cancino RN; for hypertension; Verbal order read back and verified. 13:54:59 Versed 1 mg I.V. was administered by Cathy Cancino RN; for sedation; Verbal order read back and verified. 13:58:04 SPIDER EMBOLIC PROTECTION DEVICE 6MM ([id number]) opened to sterile field. 14:04:12 PROTEGE RX TAPERED 8-6MM X 30MM X 135CM stent ([id number]) was deploye d across Undefined1 . 14:14:27 Versed 0.5 mg I.V. was administered by Cathy Cancino RN; for sedation; Verbal order read back and verified. 14:14:40 Fentanyl 25 mcg I.V. was administered by Cathy Cancino RN; for sedation; Verbal order read back and verified. 14:20:35 Inflate balloon Inflation number: 1 A VIATRAC 4 x 2 x 135 balloon ([id number]) was prepped and advanced across the Undefined1 , then inflated. 14:28:58 Inflate balloon Inflation number: 2 A VIATRAC 6 x 2 x 135 balloon ([id number]) was prepped and advanced across the Undefined1 , then inflated . 14:37:58 Zero performed for pressure channel P1 14:38:07 Zero performed for pressure channel P1 14:39:57 Atropine 0.5 mg I.V. was administered by Cathy Cancino RN; used for procedure; Verbal order read back and verified. 14:46:16 Versed 0.5 mg I.V. was administered by Cathy Cancino RN; for sedation; Verbal order read back and verified. 14:46:24 Fentanyl 25 mcg I.V. was administered by Cathy Cancino RN; for sedation; Verbal order read back and verified. 14:48:56 SHEATH 6FR Inavale (FLJ809) opened to sterile field. 14:54:55 MYNX GROUP SOCIAL WORKER 6FR/7FR (KG2892) opened to sterile field. 14:55:48 A sheath was inserted into the Femoral artery 14:55:48 Sheath removed intact; hemostasis achieved with Mynx Cathead Worker 6Fr/7Fr to th e Femoral artery. 14:55:51 Procedure ended.(Physican Out) 14:56:13 Fluoroscopy time 16.10 minutes. 14:56:25 Fluoroscopy dose: 1454 mGy 14:56:25 Flurop Dose total: 1454 14:56:36 Contrast amount:Isovue 300 155ml. 14:58:18 Procedure and supply charges have been captured, reviewed, submitted an d are correct. 15:05:39 Fentanyl 50 mcg I.V. was administered by Mallika Randhawa RN; for sedation ; Verbal order read back and verified. 15:14:46 Vital chart was stopped Intervention Summary Intervention Notes Time ActionType Lesion and Equipment Action# Pressure Duration Attributes Used 14:04:12 Deploy self Undefined1 PROTEGE RX 1 expanding TAPERED 8-6MM stent X 30MM X 135CM stent ([id number]) 14:20:35 Inflate Undefined1 VIATRAC 4 x 2 1 0 00:00 balloon x 135 balloon ([id number]) 14:28:58 Inflate Undefined1 VIATRAC 6 x 2 2 0 00:00 balloon x 135 balloon ([id number]) Device Usage Item Name Manufacture Quantity Catalog Number Hospital Part Current Minimal Lot# / Charge Number Stock Stock Serial# Code ACIST Syringe Acist 1 58036 566382 907222 426139 20 (19655) Medical Systems Inc ACIST Hand Acist 1 71842 035232 742161 006593 5 Control Medical (92761) Systems Inc ACIST Manifold Acist 1 19205 545771 241827 756118 5 (76530) Medical Systems Inc Bag Decanter Microtek 1 2001S 270312 32508 079759 5 (2001S) Medical Inc. Sterile Cardinal 1 [id number] 618979 765122 5 Angiographic Health Pack Tegaderm 4 x 4 3M 1 1626W 132314 471337 969822 5 (1626W) CHOICE PT Altus 1 [id number] 280403 840668 217690 5 [id number] Extra Support Scientific J 300cm guide wire (9679206T4) TUBING Merit 1 [id number] 009831 511505 017059 5 Contrast Medical Injection High Pressure (VUW054P) SHEATH 5FR Terumo 1 QVP717 873221 397243 021961 5 Inavale (UIB586) INFLATOR Merit 1 EW7425 443961 640484 088883 5 [employer] supply chain (JB5016) Micropuncture VSI VASCULAR 1 7266V 758540 827658 5 VSI 4FR kit SOLUTIONS BENTSON 145cm [facility] 1 E45850 129021 783887 5 wire (I78707) CROOK 260 wire [facility] 1 P33781 158236 22859 767745 5 (P66218) Merit Impress Merit 1 330781WGF 067839 308047 5 Limon 5FR. Medical 100CM catheter (427388ZIS) Cook RAABE [facility] 1 Y86627 495065 284277 5 6FR. 90cm guide sheath SPIDER EMBOLIC Medtronic 1 PUT0-ZU-659-320 791255 763548 5 PROTECTION DEVICE 6MM ([id number]) PROTEGE RX Medtronic 1 XNPO-4-7-30-135 955300 691110 652646 5 [id number] TAPERED 8-6MM X 30MM X 135CM stent ([id number]) VIATRAC 4 x 2 Lu 1 0605089-03 336922 339472 274279 5 9380697 x 135 balloon Vascular ([id number]) VIATRAC 6 x 2 Lu 1 0445817-92 394463 338304 950771 5 2750814 x 135 balloon Vascular ([id number]) SHEATH 6FR Terumo 1 NKM908 167375 510288 956510 40 Inavale (HJU267) MYNX GROUP SOCIAL WORKER Access 1 HZ2846 060053 297106 5 [id number] 6FR/7FR Closure (EL1421) Signature Audit Golden Stage Time Signature Unsigned Intra-Procedure 07/27/2019 Deborah Varghese 3:14:42 PM RT(R) [facility] [address] [place] [address]
[~2019-07-21 12:15] MED LIST changes: -BENICAR5 MG; +BENICAR5 MG PO
[2019-07-27] VITALS (14 sets, daily range): BP systolic 86–159; BP diastolic 28–99; Ht 161.3 cm; Wt 104.2 kg
[2019-07-27 10:10] LABS: ANION GAP 12.2 mmol/L (8-16); CALCIUM 10.1 mg/dL (8.5-10.1); CARBON DIOXIDE 25.4 mmol/L (21.0-32.0); POTASSIUM - SERUM 4.6 mmol/L (3.5-5.1)
[2019-07-27 10:15] LABS: BASOPHILS 0.1 % (0-2); EOSINOPHILS 1.7 % (0-7); HEMATOCRIT 37.6 % (36.0-48.0); HEMOGLOBIN 12.4 g/dL (12-16); IMMATURE GRANULOCYTES 0.4 % (0-5); LYMPHOCYTES 29.7 % (15-50); MCH 32.9 pg (26.0-34.0); MCV 99.7 fL (80.0-100.0); MEAN PLATELET VOLUME 9.2 fL (7.4-10.4); NEUTROPHILS 59.1 % (40-80); PLATELET COUNT 228 10x3/uL (130-400); RBC 3.77 10x6/uL (4.00-5.40); WBC 7.7 10x3/uL (4.8-10.8)
[2019-07-27 10:16] LABS: APTT 24.9 SECONDS (22.8-39.4); INR 0.95 (0.85-1.17); PROTIME 12.7 SECONDS (11.6-15.0)
[2019-07-27] MEDS ORDERED: LOPRESSOR25 MG PO (10:59)
[2019-07-27] MEDS ORDERED: WELLBUTRIN XL150 M1 PO (11:07)
[2019-07-27] MEDS ORDERED: ZANAFLEX4 MG PO (11:09)
[2019-07-27] MEDS ORDERED: PROTONIX20 MG PO (11:10)
[2019-07-27] MEDS ORDERED: MAG-OX 400 MG400 MG PO (11:11)
--- NOTE | 2019-07-27 15:59 | NUR ---
BREAD PAN GREASER NOTIFIED OF SUICIDE SCREENING, TOLD TO CALL HALF-WAY, HALF-WAY STATED PT NEEDED A SITTER UNTIL SCREENED, BREAD PAN GREASER AND CHARGE NURSE AND PTS NURSE NOTIFIED
--- NOTE | 2019-07-27 16:16 | NUR ---
DR MILIAN NOTIFIED AND REVIEWED PT'S BEHAVIOR AND ASSESSMENT RESULTS. PT IS A LOW RISK. RESOURCES GIVEN AND SHE VERBALIZES UNDERSTANDING.
--- NOTE | 2019-07-27 19:00 | NUR ---
BEDSIDE REPORT AND SHIFT ASSESSMENT COMPLETE, SEE FLOWSHEET. VSS, NO SIGNS OF ACUTE DISTRESS NOTED. SINUS ADAM ON MONITOR. PT LYING FLAT. R GROIN SITE SOFT, DRESSING CDI, NO SIGNS OF BLEEDING OR HEMATOMA. PEDAL PULSES DOPPLERED. L HAND PIV PATENT, SEE IV FLOWSHEET. PT REQUESTING SIP OF WATER. INSTRUCTED THAT SHE WILL BE ABLE TO SIT UP SHORTLY. CALL LIGHT IN REACH.
--- NOTE | 2019-07-27 20:20 | NUR ---
PHARMACY CALLED AND NOTIFIED OF MISSING REG INSULIN, RUBY STATED SHE WOULD SEND SOME UP.
--- NOTE | 2019-07-27 20:40 | NUR ---
MEDS GIVEN PER MAR AND TOLERATED BY PT. PT STATES SHE TAKES TWO TYPES OF INSULIN AT HOME AND EXPRESSED CONCERN WHEN ONLY RECEIVING ONE. I INFORMED HER THAT IN THE HOSPITAL PT'S ARE PLACED ON A SLIDING SCALE. SHE ALSO ASKED FOR A MUSCLE RELAXER. I EXPLAINED THERE WAS NOT ONE ON HER MAR AND THAT SHE HAD RECEIVED TORADOL. DAUGHTER AT BEDSIDE. CALL LIGHT IN REACH.
--- NOTE | 2019-07-27 21:25 | NUR ---
HR DROPPING IN 40'S. EXPERIMENTAL MECHANIC OUTBOARD MOTORS IR PAGED, DR TIAN NOTIFIED OF PT STATUS. DR TIAN STATED THAT IF PT BECOMES SYMPTOMATIC WITH CHEST PAIN OR SOB WITH HR LOWER THAN 40 TO CONSULT CARDIOLOGY. FREQUENT NEURO CHECKS ARE TO BE PERFORMED. OK TO SIT PT UP AND NOTIFIED TO D/C BEDREST. WILL MONITOR.
--- NOTE | 2019-07-27 23:00 | NUR ---
REASSESSMENT COMPLETE. PT REPOSITIONED FOR COMFORT.
[2019-07-28] VITALS (11 sets, daily range): BP systolic 83–122; BP diastolic 30–58
--- NOTE | 2019-07-28 00:28 | NUR ---
SPOKE WITH DR TIAN, UPDATE GIVEN. NOT CONCERNED WITH PT STATUS UNLESS PT BECOMES SYMPTOMATIC.
--- NOTE | 2019-07-28 02:00 | NUR ---
PT ASKING TO GET UP TO USE RESTROOM. HR IN THE 40'S AND SYSTOLIC B/P IN THE 80'S. INFORMED PT I COULD PUT HER ON THE BEDPAN BUT CANNOT LET HER GET UP. SHE DEMANDED THAT I LET HER UP AND SAID "IF YOU DONT HELP ME AND I GET UP ON MY OWN WHAT WILL HAPPEN?" I TOLD HER I COULD NOT LET HER DO THAT BECAUSE HER B/P MIGHT DECREASE AND SHE MIGHT BECOME SYMPTOMATIC AND HURT HERSELF. SHE STATES SHE CAN NOT USE THE BEDPAN. I INSTRUCTED HER TO TRY.
--- NOTE | 2019-07-28 03:00 | NUR ---
REASSESSMENT COMPLETE, SEE FLOWSHEET. PT SLEEPING.
[2019-07-28 04:40] LABS: BASOPHILS 0.2 % (0-2); EOSINOPHILS 1.7 % (0-7); HEMATOCRIT 33.1 % (36.0-48.0); HEMOGLOBIN 10.5 g/dL (12-16); IMMATURE GRANULOCYTES 0.3 % (0-5); LYMPHOCYTES 31.9 % (15-50); MCHC 31.7 g/dL (31.0-37.0); MCV 100.9 fL (80.0-100.0); MEAN PLATELET VOLUME 9.1 fL (7.4-10.4); MONOCYTES 9.8 % (2-11); NEUTROPHILS 56.1 % (40-80); RBC 3.28 10x6/uL (4.00-5.40); RDW 13.3 % (11.5-14.5); WBC 6.3 10x3/uL (4.8-10.8)
[2019-07-28 04:43] LABS: PLATELET COUNT 171 10x3/uL (130-400)
--- NOTE | 2019-07-28 04:45 | NUR ---
PT REFUSED CHG BATH.
[2019-07-28 05:05] LABS: ANION GAP 10.9 mmol/L (8-16); CALCIUM 8.7 mg/dL (8.5-10.1); CARBON DIOXIDE 29.5 mmol/L (21.0-32.0); CREATININE - SERUM 1.6 mg/dL (0.6-1.3); POTASSIUM - SERUM 4.4 mmol/L (3.5-5.1)
--- NOTE | 2019-07-28 12:00 | NUR ---
IV DCD WITH CATH INTACT. DISCHARGE OBTAINED.
--- NOTE | 2019-07-28 13:55 | NUR ---
DISCHARGE COMPLETE AND DISCUSSED WITH PT. MEDS DISCUSSED. VOICES NO QUESTIONS AT THIS TIME. LEFT WITH DAUGHTER VIA PRIVATE AUTO.
--- NOTE | 2019-07-28 20:58 | MORECARE ---
CASE MANAGEMENT DISCHARGE SUMMARY PATIENT: KELLY DAS UNIT: [id number] ADM DATE: 07/27/19 AGE: 69 : 50 SEX: F ROOM/BED: [facility] AUTHOR: TAMMY DAVIES PHYSICIAN: REFERRING PHYSICIAN: LEONORA OGLSEBY MD DATE OF SERVICE: 07/28/19 Discharge Plan Patient Name: KELLY DAS Facility: [facility]:[place] : 1950 Planned Disposition: Home Anticipated Discharge Date: Discharge Date: 07/28/2019 Expected LOS: Initial Reviewer: [email or web address] Initial Review Date: 07/27/2019 Generated: 07/28/19 9:58 pm External Providers External Provider: Fuad Pulliam Next Contact Date: Service Request Date: Service Type: Resolution: Reviewer: Comments: Coverage Notice Reviewer: [email or web address] Simran Engle Notice Issued Date-Time: 07/28/2019 11:45 Notice Type: Patient Choice Letter Notice Delivered To: Patient Relationship to Patient: Self Med Asst Name: Delivery Method: - Renetta Days: Prior Verbal Notification: Recipient Understood Notice: Recipient Signature: Med Rec Note Co-signed by Attending: Coverage Notice Comment: Patient Name: KELLY DAS Page 87836 at 2057 All edits/amendments must be made on the electronic document DICTATION DATE: 07/28/192057 BALL FRINGE MACHINE OPERATOR: DESIRAE 07/28/192057 RPT#: [id number] DC DATE:07/28/19 STATUS: DIS IN [facility] [address] [place] [address] END OF REPORT
--- NOTE | 2019-07-28 21:05 | MORECARE ---
CASE MANAGEMENT DISCHARGE SUMMARY PATIENT: KELLY DAS UNIT: [id number] ADM DATE: 07/27/19 AGE: 69 : 50 SEX: F ROOM/BED: [facility] AUTHOR: TAMMY DAVIES PHYSICIAN: REFERRING PHYSICIAN: LEONORA OGLESBY MD DATE OF SERVICE: 07/28/19 Discharge Plan Patient Name: KELLY DAS Facility: [facility]:[place] : 1950 Planned Disposition: Home Anticipated Discharge Date: Discharge Date: 07/28/2019 Expected LOS: Initial Reviewer: [email or web address] Initial Review Date: 07/27/2019 Generated: 07/28/19 10:05 pm DCPIA - Discharge Planning Initial Assessment Updated by [email or web address]: Lissette Engle on 07/28/19 9:03 pm * Is the patient Alert and Oriented? Yes * How many steps to enter\exit or inside your home? * [facility] * [facility] * Preadmission Environment Home Alone * ADLs Independent * Other Equipment BSC, SC, ROLLATER, CANE, HOME/ PORTABLE 02 * List name and contact numbers for known caregivers / representatives who currently or will assist patient after discharge: [facility]RIS SES[facility] - [facility]- [phone] * Verbal permission to speak to the caregivers and representatives has been obtained from the patient. Yes * Additional services required to return to the preadmission environment? No * Can the patient safely return to the preadmission environment? Yes * Has this patient been hospitalized within the prior 30 days at any hospital? No Coverage Notice Reviewer: [email or web address] - Lissette Engle Notice Issued Date-Time: 07/28/2019 11:45 Notice Type: Patient Choice Letter Notice Delivered To: Patient Relationship to Patient: Self Billet Examiner Name: Delivery Method: HAND - Hand Delivered Renetta Days: Prior Verbal Notification: Recipient Understood Notice: Yes Recipient Signature: Yes Med Rec Note Co-signed by Attending: Coverage Notice Comment: KRYSTLE [facility] Last DP export: 07/28/19 7:59 p Patient Name: KELLY DAS Page 70181 at 2105 All edits/amendments must be made on the electronic document DICTATION DATE: 07/28/192104 WEB FEEDER: DESIRAE 07/28/192104 RPT#: [id number] DC DATE:07/28/19 STATUS: DIS IN [facility] [address] [place] [address] END OF REPORT
--- NOTE | 2019-07-28 21:11 | MORECARE ---
CASE MANAGEMENT DISCHARGE SUMMARY PATIENT: KELLY DAS UNIT: [id number] ADM DATE: 07/27/19 AGE: 69 : 50 SEX: F [facility] AUTHOR: KEKE,DOC PHYSICIAN: REFERRING PHYSICIAN: LEONORA OGLESBY MD DATE OF SERVICE: 07/28/19 Discharge Plan Patient Name: KELLY DAS Facility: [facility]:[place] : 1950 Planned Disposition: Home Anticipated Discharge Date: Discharge Date: 07/28/2019 Expected LOS: Initial Reviewer: [email or web address] Initial Review Date: 07/27/2019 Generated: 07/28/19 10:11 pm Comments DCP- Discharge Planning Updated by [email or web address]: Lissette Engle on 07/28/19 8:[address] Patient Name: KELLY DAS Admission Status: Elective Accout number: [id number] Admission Date: 07-27-2019 : 1950 Admission Diagnosis: Attending: LEONORA OGLESBY Current LOS: 1 Anticipated DC Date: Planned Disposition: Home Primary Insurance: MEDICARE A & B Discharge Planning Comments: CM met with patient to complete initial dc planning assessment. CM educated patient on the CM role and verbal consent given by patient to complete assessment. Patient lives at home alone where she is independent with her care. At discharge patient plans to return home and feels this is a safe discharge. CM discussed availability of home health, rehab services, and medical equipment. ARIANNE signed for [facility] Shasha - CM contacted K[facility]le and faxed referral [phone]. Her daughter will be her team driver home. Patient denied known discharge needs at this time. CM will continue to follow and will assist as needed with dc plans/needs. Purchasing And Claims Supervisor: Lissette Engle DCPIA - Discharge Planning Initial Assessment Updated by [email or web address]: Lissette Engle on 07/28/19 9:03 pm * Is the patient Alert and Oriented? Yes * How many steps to enter\exit or inside your home? * PCP NICK * [facility] * Preadmission Environment Home Alone * ADLs Independent * Other Equipment BSC, SC, ROLLATER, CANE, HOME/ PORTABLE 02 * List name and contact numbers for known caregivers / representatives who currently or will assist patient after discharge: CHRIS SESAY - DAUGHTER- [phone] * Verbal permission to speak to the caregivers and representatives has been obtained from the patient. Yes * Additional services required to return to the preadmission environment? No * Can the patient safely return to the preadmission environment? Yes * Has this patient been hospitalized within the prior 30 days at any hospital? No Coverage Notice Reviewer: [email or web address] Simran Engle Notice Issued Date-Time: 07/28/2019 11:45 Notice Type: Patient Choice Letter Notice Delivered To: Patient Relationship to Patient: Self Presales Engineer Name: Delivery Method: HAND - Hand Delivered Renetta Days: Prior Verbal Notification: Recipient Understood Notice: Yes Recipient Signature: Yes Med Rec Note Co-signed by Attending: Coverage Notice Comment: KRYSTLE KhalilSORTO Bakari DP export: 07/28/19 8:05 p Patient Name: KELLY DAS Page [id number] at 2111 All edits/amendments must be made on the electronic document DICTATION DATE: 07/28/192110 SANITATION LEAD: DESIRAE 07/28/192110 RPT#: [id number] DC DATE:07/28/19 STATUS: DIS IN [facility] [address] [place] [id number] END OF REPORT
== END 2019-07-28 14:08 | disposition home health service (06) | DRG 36 ==
LOC: D.SDCHOLD 07-27 09:32 → D.CVICU 07-27 15:31
PROVIDERS: ADMIT Radiology Diagnostic Radiology; ATTEND Radiology Diagnostic Radiology
PROC: 037K3DZ Dilation of Right Internal Carotid Artery with Intraluminal Device, Percutaneous Approach (ICD-10-PCS; principal; 2019-07-27 13:00)
DX: I65.21 Occlusion and stenosis of right carotid artery (principal)

== ENCOUNTER 2019-10-15 19:00 | Outpatient (CLI) | payer MEDICARE ==
[2019-07-27 15:37] VITALS: BMI 39.5
[~2019-10-15 19:00] MED LIST changes: +LOPRESSOR25 MG PO; +MAG-OX 400 MG400 MG PO; +PROTONIX20 MG PO; +WELLBUTRIN XL150 M1 PO; +ZANAFLEX4 MG PO
== END 2019-10-15 23:59 | disposition home or self-care (01) ==
LOC: D.MAMMO 19:00
PROVIDERS: ATTEND Internal Medicine Gastroenterology
DX: Z12.31 Encounter for screening mammogram for malignant neoplasm of breast (principal)

== ENCOUNTER → 2019-12-13 09:55 | Outpatient (CLI) | payer MEDICARE ==
[2019-07-27 15:37] VITALS: BMI 39.5
== END | disposition home or self-care (01) ==
LOC: D.US 09:55
PROVIDERS: ATTEND Radiology Diagnostic Radiology
DX: I65.21 Occlusion and stenosis of right carotid artery (principal)

== ENCOUNTER → 2020-10-17 15:16 | Outpatient (CLI) | payer MEDICARE, MEDICAID ==
[2019-07-27 15:37] VITALS: BMI 39.5
== END | disposition home or self-care (01) ==
LOC: D.US 15:00
PROVIDERS: ATTEND Thoracic Surgery (Cardiothoracic Vascular Surgery)
DX: I65.21 Occlusion and stenosis of right carotid artery (principal)